=== PATIENT | male | born 1955 | race Caucasian/White ===

== ENCOUNTER 2023-11-21 06:57 | Inpatient (IN) | payer MEDICARE, SELFPAY ==
[2023-11-21] VITALS (48 sets, daily range): BP systolic 53–182; BP diastolic 41–117; PULSE 54–106; RESP 16–24; TEMP 36.1–37.2; O2SAT 87–100; BMI 26.2
--- NOTE | 2023-11-21 07:02 | NURSING ---
NO OLD EKGS
[2023-11-21] MEDS: Etomidate 20 MG/10 ML Vial IV (07:12)
[2023-11-21] MEDS: Rocuronium Bromide 50 MG/5 ML Vial 40 MG IV (07:13)
--- NOTE | 2023-11-21 07:18 | RAD_ITS ---
We are attempting to reach an attending provider to discuss findings. An addendum with communication details will be sent when the communication is complete. EXAM: XR CHEST, 1 VIEW CLINICAL INDICATION: Unresponsive TECHNIQUE: Frontal view of the chest. COMPARISON: No relevant prior studies available. FINDINGS: LUNGS AND PLEURAL SPACES: Opacification right superior hemithorax with a smooth concave curvilinear inferior margin. No pneumothorax. No effusion. HEART: Unremarkable. Cardiac silhouette not enlarged. MEDIASTINUM: Central airways and mediastinal contour are unremarkable. BONES/JOINTS: Unremarkable. No acute fracture. SOFT TISSUES: Unremarkable. TUBES, LINES AND DEVICES: Endotracheal tube tip is 3.1 cm above the ellen. NG tube is in good position in the stomach. RAD/Chest 1 View (Portable) IMPRESSION: 1. Opacification right superior hemithorax with a smooth concave curvilinear inferior margin. This is likely due to atelectasis of the right upper and middle lobes. Consider CT if clinically indicated. 2. Endotracheal tube tip is 3.1 cm above the ellen. 3. NG tube is in good position in the stomach. Electronically Signed: Ion Smith MD at 7:39 EDT ,
--- NOTE | 2023-11-21 07:19 | EKG12_ITS ---
Test Reason : POST CODE Blood Pressure : / mmHG Vent. Rate : 105 BPM Atrial Rate : 101 BPM P-R Int : 000 ms QRS Dur : 098 ms QT Int : 336 ms P-R-T Axes : 000 057 231 degrees QTc Int : [address] & T wave abnormality, consider inferior ischemia ST & T wave abnormality, consider anterolateral ischemia Abnormal ECG Confirmed by EFRAIN PALMER, MARILYN ([id number]), rewrite editor BRENNA MOLINA ([id number]) on 11/23/2023 9:48:38 AM Referred By: BURAK Confirmed By:MARILYN ZUNIGA MD
--- NOTE | 2023-11-21 07:23 | EDS_ITS ---
HPI History of Present Illness Chief Complaint: CPR Informant: EMS Limited: coma Onset/Context/Timing Onset: Today Timing: Continuous Associated Symptoms Associated Symptoms: chest pain Narrative Narrative: Patient presents with cardiopulmonary arrest. EMS was called for chest pain. Upon EMS arrival, patient was unresponsive and bystanders were performing CPR. EMS continued CPR. EMS inserted an intraosseous line. EMS placed a Fran airway. Upon arrival to the emergency department, patient had a pulse and a b lood pressure. Patient was still unresponsive. Patient was unable to provide any further history. EMS states that the patient saw his primary care physician yesterday for chest pain. [facility] Medical History Smoker Alcohol abuse Hypertension Allergy/AdvReac Type Severity Reaction Status Date / Time No Known Allergies Allergy Verified 11/21/23 07:33 Surgical History unable to obtain unable to obtain Social History Smoking Status: Current every day smoker tobacco type: cigarettes ROS ROS ED Review of Systems ROS Unobtainable: due to endotracheal tube and due to mental status EXAM Physical Exam Const Vital Signs: 11/21/23 06:57 11/21/23 06:58 11/21/23 07:05 Temperature 97 F L Temperature Source Temporal Pulse Rate 106 H 96 Respiratory Rate 18 19 H Respiratory Effort Respiratory Pattern Blood Pressure 140/90 H 140/90 H Blood Pressure Mean 106 106 Pulse Ox 99 Oxygen Delivery Method Ambu-Bag Ambu-Bag Fraction of Inspired Oxygen (FIO2) 11/21/23 07:15 11/21/23 07:15 11/21/23 07:30 Temperature 97.2 F L Temperature Source Temporal Pulse Rate 74 79 Respiratory Rate 16 16 Respiratory Effort Respiratory Pattern Blood Pressure 182/117 H 147/80 H Blood Pressure Mean 138 102 Pulse Ox 100 100 Oxygen Delivery Method Mechanical Ventilator Fraction of Inspired Oxygen (FIO2) 100 100 11/21/23 07:40 11/21/23 07:45 11/21/23 08:00 Temperature Temperature Source Pulse Rate 82 70 Respiratory Rate 20 H 20 H Respiratory Effort Mechanically Ventilated Respiratory Pattern Normal Blood Pressure 132/76 H 120/76 Blood Pressure Mean 94 90 Pulse Ox 97 97 Oxygen Delivery Method Mechanical Ventilator Mechanical Ventilator Fraction of Inspired Oxygen (FIO2) 100 11/21/23 08:30 Temperature Temperature Source Pulse Rate 75 Respiratory Rate 20 H Respiratory Effort Respiratory Pattern Blood Pressure 120/76 Blood Pressure Mean 90 Pulse Ox 97 Oxygen Delivery Method Mechanical Ventilator Fraction of Inspired Oxygen (FIO2) 100 Positive well nourished and well developed General Appearance ED: well developed HEENT normocephalic and atraumatic Neck no JVD Resp Resp Narrative: Patient had equal breath sounds with mechanical ventilation bilaterally. Cardio regular rate and regular rhythm GI non-distended Palpation: soft MDM MDM MDM Narrative Medical decision making narrative: Differential diagnosis includes cardiac dysrhythmia, cardiac ischemia, electrolyte abnormality, pneumonia, sepsis, and intracranial bleeding. EKG will be obtained to assess for cardiac dysrhythmia and cardiac ischemia. Chest x-ray will be obtained to assess for pneumonia and pneumothorax. CT scan of the brain will be obtained to assess for intracranial bleeding. CBC will be obtained to assess for leukocytosis and anemia. Comprehensive metabolic profile will be obtained to assess for hepatic function, renal function, and electrolyte abnormality. PT with INR and PTT will be obtained to assess for coagulopathy. Serum lactate will be obtained to assess for sepsis. Urinalysis will be obtained to assess for urinary tract infection. Lab Data Attestation: I reviewed the patient's lab results. Lab results narrative: CBC was reviewed. There is a leukocytosis of 15.1. The remainder is within normal limits. PT with INR and PTT were reviewed and were within normal limits. Comprehensive metabolic profile was reviewed. CO2 was low at 17. Creatinine was elevated at 1.81. Glucose was elevated at 295. AST was slightly elevated at 67. ALT was normal. Serum lactate was reviewed and was elevated at 6.6. Urinalysis was reviewed. There is no evidence of urinary tract infection or hematuria. Initial high-sensitivity troponin was reviewed and was normal at 67. Arterial blood gas was reviewed. pH was 7.18, pCO2 was 48.8, pO2 was 191, bicarb was 18.3, and oxygen saturation was 99.4% on the ventilator. Labs: Laboratory Results - last 24 hr 11/21/23 11/21/23 11/21/23 07:09 07:25 07:30 WBC 15.1 H RBC 4.33 L Hgb 14.3 Hct 44.7 MCV 103.2 H MCH 33.0 H MCHC 32.0 RDW Std Deviation 48.7 H RDW Coeff of Sina 12.6 Plt Count 290 MPV 10.0 Immature Gran % (Auto) 2.700 H Neut % (Auto) 28.9 L Lymph % (Auto) 58.1 H [place] % (Auto) 5.4 Eos % (Auto) 4.0 Baso % (Auto) 0.9 Absolute Neuts (auto) 4.4 Absolute Lymphs (auto) 8.75 H Nucleated RBC % 0.1 Reactive Lymphocytes 2+ PT 14.1 INR 1.1 APTT 32.3 Sodium 134 L Potassium 3.7 Chloride 101 Carbon Dioxide 17.0 L Anion Gap 16 H BUN 18 Creatinine 1.81 H Estim Creat Clear Calc 41.68 Est GFR (MDRD) Af Amer 48 L Est GFR (MDRD) Non-Af 40 L BUN/Creatinine Ratio 9.9 L Glucose 295 H Lactic Acid 6.6 H* Calcium 8.8 Total Bilirubin 0.30 AST 67 H ALT 59 Alkaline Phosphatase 66 Troponin I High Sens 67 Total Protein 7.3 Albumin 3.5 Globulin 3.8 Albumin/Globulin Ratio 0.9 Urine Color Yellow Urine Clarity Clear Urine pH 6.0 Ur Specific [place] 1.015 Urine Protein 100 H Urine Glucose (UA) 50 H Urine Ketones Negative Urine Occult Blood 50 H Urine Nitrite Negative Urine Bilirubin Negative Urine Urobilinogen Normal Ur Leukocyte Esterase Negative Urine RBC 0 SEEN Urine WBC 0 SEEN Ur Squamous Epith Cells 0 SEEN Urine Bacteria 0 SEEN Urine Mucus 0 SEEN ABG Data ABG results: ABG 11/21/23 07:39 Specimen Type ART Sample Site L Radial pH 7.18 L* Bicarbonate Actual 18.3 L Total CO2 20 Base Excess -10 L O2 Saturation 99 O2 % 100.0 ABG pCO2 48.8 H ABG pO2 192 H Jacob Test Positive Respiration Rate 16 O2 Delivery Device Adult Vent Vent Mode AC Tidal Volume 500.0 POC PEEP 5 Crit Call To/Read Back Yes Blood Gas Notified Whom shanae Blood Gas Notified Time 07:41:44 Radiography Chest X-Ray - ED: 1 View, Read by ED Physician, Read by Radiologist and Right Infiltrate Diagnostic Testing: Clinical Impression(s) from Imaging Studies Chest X-Ray 11/21/23 07:18 IMPRESSION: 1. Opacification right superior hemithorax with a smooth concave curvilinear inferior margin. This is likely due to atelectasis of the right upper and middle lobes. Consider CT if clinically indicated. 2. Endotracheal tube tip is 3.1 cm above the ellen. 3. NG tube is in good position in the stomach. Electronically Signed: Ion Smith MD at 7:39 EDT , ADDENDUM: 11/21/23 0757 IMPRESSION: 1. Opacification right superior hemithorax with a smooth concave curvilinear inferior margin. This is likely due to atelectasis of the right upper and middle lobes. Consider CT if clinically indicated. 2. Endotracheal tube tip is 3.1 cm above the ellen. 3. NG tube is in good position in the stomach. N.B. : Arslan French DO, confirmed on 11/21/2023 07:50:45 (ET) that the referring physician received the results and does not require a verbal communication. Electronically Signed: Ion Smith MD at 7:39 EDT , Brain CT 11/21/23 08:19 IMPRESSION: 1. No acute intracranial abnormality. 2. Paranasal sinusitis Electronically Signed: Edmund Sellers MD at 9:52 EDT , Chest CTA 11/21/23 08:21 IMPRESSION: 1. Right upper lobe pneumonia with volume loss change. Subsegmental atelectasis of the left upper lobe and both lower lobes. 2. No evidence of acute pulmonary embolism. Electronically Signed: Edmund Sellers MD at 10:11 EDT , EKG Initial EKG: Attestation: I personally reviewed and interpreted this EKG as follows: Interpretation: Sinus Rhythm (With occasional ectopics with a rate of 105) and Non-Specific ST Changes Comments: EKG was obtained. On my independent interpretation, it shows a sinus tachycardia with a rate of 105 with frequent ectopics. WI interval was within normal limits. QRS interval was within normal limits. QTc interval was within normal limits. [place] was normal. There are nonspecific ST-T wave changes diffusely. There is no criteria for acute STEMI. Prior EKG tracings: not available for review Prior: No Prior Management Discussion w/another healthcare provider: Hospitalist and Machine Strap Buckler Treatment and Re-Evaluation Narrative: Patient had a return of spontaneous circulation. Patient had a good blood pressure. The Fran airway was removed and endotracheal intubation was attempted. Patient was biting on the laryngoscope. Patient was given etomidate and rocuronium. After sedation and neuromuscular paralysis, patient was intubated with an 8 ET tube to 28 cm at the lip. There is good color change on the capnography. Breath sounds were equal bilaterally. Patient was placed on a mechanical ventilator. Because of the chest x-ray findings, lactic acidosis, and leukocytosis, patient was given Rocephin and Zithromax. Blood cultures were obtained. Case was discussed with cardiology, Dr. Rand. He did not feel that the patient needed emergent cardiac catheterization. He had no further recommendations. While here in the emergency department, patient did have a short run of ventricular tachycardia. Patient converted spontaneously. Case was discussed with the hospitalist. He will admit the patient to ICU. Family understood and was agreeable with the plan. All questions were answered. Procedures Intubations Intubation Method: orotracheal Intubation Verification: Positive color change and Bilateral breath sounds confirmed Intubation Complications: no complications Critical Care Time Critical Care Time: Yes Critical care time (excluding procedures): 30-74 minutes (42 minutes), Including time spent:, Discussing w/Patient &/or Family/Entry Level Machine Operator, Discussing w/Consultants, Arranging Admission or Transfer and Performing Direct Patient Care at Bedside Discharge Plan Triage Chief Complaint: CPR ED Provider: Arslan French Dx/Rx/DC Orders Clinical Impression: Cardiopulmonary arrest with successful resuscitation, Pneumonia, Acute lactic acidosis Primary Care Provider: Care Physician,No Primary Referrals: NOT,DEFINED [Non-Staff] - Print Language: Cymraes Disposition Disposition: [facility]
[2023-11-21 07:30] LABS: Absolute Lymphocyte Count 8.75 X10^3/uL (0.83-4.51); Absolute Neutrophil Count 4.4 X10^3/uL (2.0-7.7); Basophil# 0.13 X10^3/uL; Basophil% 0.9 % (0-1); Hematocrit 44.7 % (40-54); Hemoglobin 14.3 g/dL (13.0-16.5); Lymphocyte # 8.75 X10^3/ul (0.83-4.51); Lymphocyte % 58.1 % (19-41); Mean Corpuscular Volume 103.2 fL (80-94); Monocyte# 0.81 X10^3/uL; Monocyte% 5.4 % (0-10); NRBC Flagged by Analyzer 0.1 % (0-5); Neutrophil # 4.37 X10^3/uL (2.7-7.7); Neutrophil % 28.9 % (47-70); POSITIVE DIFFERENTIAL YES; POSITIVE MORPHOLOGY YES; Platelet Count 290 K/mm3 (150-450); RBC Distribution Width CV 12.6 % (11.6-14.6); RBC Distribution Width SD 48.7 fl (35.1-43.9); Red Blood Count 4.33 M/mm3 (4.6-6.2); White Blood Count 15.1 K/mm3 (4.4-11.0)
[2023-11-21 07:31] LABS: Differential Indicated SCAN CRITERIA MET
[2023-11-21 07:34] LABS: Bacteria 0 SEEN /hpf (None Seen); Mucous, Urine 0 SEEN /hpf (<or=2+); Red Blood Cells-Urine 0 SEEN /hpf (0-5); Squamous Epithelial Cells - UA 0 SEEN /hpf (0-5); White Blood Cells 0 SEEN /hpf (0-5)
[2023-11-21] MEDS: 0.9% Normal Saline (1000mL) 1,000 ML 1000 ML IV (07:34)
[2023-11-21 07:44] LABS: Color, Urine Yellow (Yellow); Glucose, Dipstick 50 mg/dl (Normal); Ketone-Dipstick Negative (Negative); Leukocyte Esterase-Dipstick Negative /ul (Negative); Nitrite-Dipstick Negative (Negative); Occult Blood-Urine 50 /ul (Negative); Protein-Dipstick 100 mg/dl (Negative); Specific Gravity, Urine 1.015 (1.002-1.030); Urine Bilirubin Dipstick Negative (Negative); Urine Clarity Clear (Clear); Urine Urobilinogen Normal (Normal)
[2023-11-21 07:45] LABS: Allen Test Positive; Base Excess -10 mmol/L (-2 to +2); Bicarbonate 18.3 mmol/L (22-26); Blood Gas Specimen Type ART; Mode AC; O2 Delivery Device Adult Vent; PEEP 5; PO2 192 mmHG (75-100); RR 16; SITE L Radial; SO2 99 % (95-99); Total Carbon Dioxide 20 mmol/L; pCO2 48.8 mmHg (35-45); pH 7.18 (7.35-7.45)
[2023-11-21 07:48] LABS: Reactive Lymphocyte 2+
[2023-11-21 07:55] LABS: ALB/GLOB Ratio 0.9 RATIO (0.9-2.4); AST(SGOT) 67 U/L (15-37); Alanine Aminotransfer ALT/SGPT 59 U/L (16-61); Albumin, Serum 3.5 g/dL (3.2-5.0); Alkaline Phosphatase 66 U/L (45-117); Anion Gap 16 (5-15); BUN 18 mg/dL (7-18); BUN/Creat Ratio 9.9 RATIO (10-20); Calcium,Total 8.8 mg/dL (8.5-10.1); Chloride 101 mmol/L (98-107); Creatinine, Serum 1.81 mg/dL (0.70-1.30); EST Glomerular Filtration Rate 40 mL/min (>60); Est Glom Filt Rate - Afr Amer 48 mL/min (>60); Estimated Creatinine Clearance 41.68 ml/min; Globulin 3.8 g/dL (2.2-4.2); Glucose 295 mg/dL (74-106); Potassium 3.7 mmol/L (3.5-5.1); Protein, Total 7.3 g/dL (6.4-8.2); Sodium Level 134 mmol/L (136-145); Troponin-I HS (w/2H Reflex) 67 pg/mL (3.0-78.0)
[2023-11-21] MEDS: fentaNYL 100 MCG/2 ML Ampul 50 MCG IV (08:07)
[2023-11-21 08:16] LABS: International Normalized Ratio 1.1; Partial Thromboplast Time 32.3 Seconds (24.1-36.2); Prothrombin Time (Protime)PT. 14.1 SECONDS (11.7-14.9)
[2023-11-21] MEDS: Propofol 10MG/Ml 1,000 MG/100 ML Bottle 5.3 MG CONT INF (08:17)
--- NOTE | 2023-11-21 08:19 | CT_ITS ---
EXAM: CT HEAD WITHOUT INTRAVENOUS CONTRAST CLINICAL INDICATION: Unresponsive TECHNIQUE: Multiple axial images were obtained of the head without intravenous contrast. This CT exam was performed using one or more of the following dose reduction techniques: automated exposure control, adjustment of the mA and/or kV according to patient size, and/or use of iterative reconstruction technique. COMPARISON: No relevant prior studies available. FINDINGS: BRAIN AND EXTRA-AXIAL SPACES: Normal. Normal brain attenuation. No intra- or extra-axial hemorrhage. No acute infarct. No intracranial mass or mass effect. There is preservation of the [place]/white matter interface. Posterior fossa structures are unremarkable. Ventricles are appropriate for age. No hydrocephalus. Basal cisterns are patent. BONES/JOINTS: Normal calvarium. SINUSES: Mucosal thickening of the paranasal sinuses. MASTOID AIR CELLS: Normal. Clear. CT/Brain/Head without Contrast IMPRESSION: 1. No acute intracranial abnormality. 2. Paranasal sinusitis Electronically Signed: Edmund Sellers MD at 9:52 EDT ,
[2023-11-21] MEDS: fentaNYL drip 100 ML 2.5 MCG CONT INF (08:21)
--- NOTE | 2023-11-21 08:21 | CT_ITS ---
CT/CTA Chest W/WO Contrast IMPRESSION: 1. Right upper lobe pneumonia with volume loss change. Subsegmental atelectasis of the left upper lobe and both lower lobes. 2. No evidence of acute pulmonary embolism. Electronically Signed: Edmund Sellers MD at 10:11 EDT ,
[2023-11-21 08:33] LABS: Lactic Acid 6.6 mmol/L (0.4-1.9)
[2023-11-21 09:24] LABS: Reflex Troponin-HS? (from REC) Y
--- NOTE | 2023-11-21 10:00 | NURSING ---
DR MICHELLE SUMNER
[2023-11-21 10:23] LABS: Troponin-I HS 1709 pg/mL (3.0-78.0)
--- NOTE | 2023-11-21 10:24 | ECHOCS_ITS ---
Reason For Study: ARRYTHMIA Procedure This was a 2D Doppler, Color Flow transthoracic echocardiogram. Exam performed portable in ED. Left Ventricle Normal LV size. Mild concentric left ventricular hypertrophy. Severe hypokinesis to akinesis of anterior, apical and anteroseptal segments. Estimated LVEF 25-30%. Stage 1 diastolic dysfunction. Right Ventricle Normal right ventricle. Atria The left and right atria are normal. Mitral Valve The mitral valve is structurally normal. No prolapse or stenosis seen. Tricuspid Valve Normal tricuspid valve. Aortic Valve Trisinus/trileaflet aortic valve. Pulmonic Valve The pulmonic valve is not well visualized. Great Vessels Mildly dilated aortic root. Pericardium/Pleural Trivial pericardial effusion. MMode/2D Measurements & Calculations LVIDd: 4.4 cm IVSd: 1.4 cm Ao root diam: 3.6 cm LVIDs: 3.2 cm LVPWd: 1.3 cm FS: 26.7 % LAV(MOD-bp): 17.5 ml LVAd ap4: 23.5 cm2 SV(MOD-sp4): 26.6 ml LAV(MOD-bp) Indexed: 8.3 ml/m2 LVLd ap4: 7.7 cm LAV(MOD-sp2): 19.7 ml EDV(MOD-sp4): 60.2 ml LAV(MOD-sp4): 15.2 ml EDV(sp4-el): 60.9 ml LVAs ap4: 16.4 cm2 LVLs ap4: 6.8 cm ESV(MOD-sp4): 33.5 ml ESV(sp4-el): 33.8 ml EF(MOD-sp4): 44.3 % EF(sp4-el): 44.6 % SV(sp4-el): 27.2 ml LA A4 area: 9.5 cm2 LA dimension(2D): 2.8 cm RA A4 area: 9.1 cm2 TAPSE: 1.5 cm Time Measurements MV dec time: 0.28 sec Doppler Measurements & Calculations MV E max curtis: 33.2 cm/sec Lat Peak E' Curtis: 3.7 cm/sec Med Peak E' Curtis: 4.1 cm/sec MV A max curtis: 52.0 cm/sec E/E' lat: 9.1 E/E' med: 8.0 MV E/A: 0.64 MV V2 max: 67.1 cm/sec Ao V2 max: 65.3 cm/sec MV max P.8 mmHg MV dec slope: 120.3 cm/sec2 Ao max P.7 mmHg MV V2 mean: 35.5 cm/sec MV mean P.58 mmHg MV V2 VTI: 21.5 cm LV V1 max: 60.8 cm/sec LV V1 max P.5 mmHg ECHO/Echo Complete W/ Contrast Interpretation Summary Mild concentric left ventricular hypertrophy. Severe hypokinesis to akinesis of anterior, apical and anteroseptal segments. E stimated LVEF 25-30%. Stage 1 diastolic dysfunction. Mildly dilated aortic root. Ordering Physician: Larry Zazueta Referring Physician: NO PCP Performed By: Wendi Ferrera RCS
[2023-11-21 10:25] LABS: CPK Total, Creatine Kinase 161 U/L (39-308); Triglycerides 235 mg/dL
--- NOTE | 2023-11-21 10:31 | PCM.HP.STD ---
HPI - General General Date of Admission: 11/21/23 Date of Service: 11/21/23 Chief Complaint: Cardiac arrest HPI Narrative HAY CONTRERAS, is a 68 M who presents admitted with cardiac arrest. Patient could not provide any history since patient was intubated at the time of my assessment but did obtain history from patient's family. Patient is apparently visiting [place] for college reunion. He has apparently been complaining of exertional chest pain weeks prior to his admission. On the morning of his event he did complain of some chest discomfort he later slumped over 911 was called patient brought to the emergency department. Successfully resuscitated using ACLS protocol with return of spontaneous circulation. Subsequently intubated.CT of the head obtained on admission demonstrated paranasal sinusitis. CTA did show right upper lobe pneumonia with volume loss change. Subsegmental atelectasis of the left upper lobe and both lower lobes. No evidence of acute pulmonary embolism.Per documentation from the ED patient did have some runs of nonsustained VT in the emergency department. EKG however was not consistent with non-STEMI. Initial cardiac enzymes was negative subsequent cardiac enzymes came back at 1709 consistent with acute SC. Patient was started on heparin drip Case discussed with Dr. Blanca and the upholstered goods crafter on-call admitted to the intensive care unit for subsequent management [facility] Medical History Smoker Alcohol abuse Hypertension Allergy/AdvReac Type Severity Reaction Status Date / Time No Known Allergies Allergy Verified 11/21/23 07:33 Surgical History unable to obtain Social History Smoking Status: Current every day smoker tobacco type: cigarettes ROS ROS Narrative Unable to obtain with patient on the vent Vital Signs Vital Signs Vital Signs: 11/21/23 06:57 11/21/23 06:58 11/21/23 07:05 Temperature 97 F L Temperature Source Temporal Pulse Rate 106 H 96 Respiratory Rate 18 19 H Respiratory Effort Respiratory Pattern Blood Pressure 140/90 H 140/90 H Blood Pressure Mean 106 106 Pulse Ox 99 Oxygen Delivery Method Ambu-Bag Ambu-Bag Fraction of Inspired Oxygen (FIO2) 11/21/23 07:15 11/21/23 07:15 11/21/23 07:30 Temperature 97.2 F L Temperature Source Temporal Pulse Rate 74 79 Respiratory Rate 16 16 Respiratory Effort Respiratory Pattern Blood Pressure 182/117 H 147/80 H Blood Pressure Mean 138 102 Pulse Ox 100 100 Oxygen Delivery Method Mechanical Ventilator Fraction of Inspired Oxygen (FIO2) 100 100 11/21/23 07:40 11/21/23 07:45 11/21/23 08:00 Temperature Temperature Source Pulse Rate 82 70 Respiratory Rate 20 H 20 H Respiratory Effort Mechanically Ventilated Respiratory Pattern Normal Blood Pressure 132/76 H 120/76 Blood Pressure Mean 94 90 Pulse Ox 97 97 Oxygen Delivery Method Mechanical Ventilator Mechanical Ventilator Fraction of Inspired Oxygen (FIO2) 100 11/21/23 08:30 11/21/23 09:00 11/21/23 09:30 Temperature 98.9 F Temperature Source Temporal Pulse Rate 75 68 68 Respiratory Rate 20 H 20 H 20 H Respiratory Effort Respiratory Pattern Blood Pressure 120/76 146/82 H 143/89 H Blood Pressure Mean 90 103 107 Pulse Ox 97 Oxygen Delivery Method Mechanical Ventilator Mechanical Ventilator Mechanical Ventilator Fraction of Inspired Oxygen (FIO2) 100 100 11/21/23 10:00 Temperature Temperature Source Pulse Rate 65 Respiratory Rate 20 H Respiratory Effort Respiratory Pattern Blood Pressure 125/82 H Blood Pressure Mean 96 Pulse Ox 100 Oxygen Delivery Method Mechanical Ventilator Fraction of Inspired Oxygen (FIO2) 85 Weight Weight: 87.9 kg Body Mass Index (BMI) 26.2 Physical Exam Narrative GENERAL: Sedated on the vent HEENT: ET tube in place EYES; Anicteric, Normal Conjunctiva NECK; supple, normal thyroid, RESPIRATORY: Diminished to auscultation CARDIOVASCULAR: Regular S1 S2, GI: soft, normoactive bowel sounds, : No Renal angle tenderness; EXTREMITIES: No edema, no clubbing, MUSCULOSKELETAL: no muscle wasting NEURO: Unable to assess SKIN: No Rash PSYCH; sedated on the vent Results Lab / Micro Data 11/21/23 07:09 11/21/23 07:09 Labs: Laboratory Results - last 24 hr 11/21/23 07:09: WBC 15.1 H, RBC 4.33 L, Hgb 14.3, Hct 44.7, MCV 103.2 H, MCH 33.0 H, MCHC 32.0, RDW Std Deviation 48.7 H, RDW Coeff of Sina 12.6, Plt Count 290, MPV 10.0, Immature Gran % (Auto) 2.700 H, Neut % (Auto) 28.9 L, Lymph % (Auto) 58.1 H, [place] % (Auto) 5.4, Eos % (Auto) 4.0, Baso % (Auto) 0.9, Absolute Neuts (auto) 4.4, Absolute Lymphs (auto) 8.75 H, Nucleated RBC % 0.1, Reactive Lymphocytes 2+, PT 14.1, INR 1.1, APTT 32.3, Sodium 134 L, Potassium 3.7, Chloride 101, Carbon Dioxide 17.0 L, Anion Gap 16 H, BUN 18, Creatinine 1.81 H, Estim Creat Clear Calc 41.68, Est GFR (MDRD) Af Amer 48 L, Est GFR (MDRD) Non-Af 40 L, BUN/Creatinine Ratio 9.9 L, Glucose 295 H, Calcium 8.8, Total Bilirubin 0.30, AST 67 H, ALT 59, Alkaline Phosphatase 66, Total Creatine Kinase 161, Troponin I High Sens 67, Total Protein 7.3, Albumin 3.5, Globulin 3.8, Albumin/Globulin Ratio 0.9, Triglycerides 235 H 11/21/23 07:25: Lactic Acid 6.6 H* 11/21/23 07:30: Urine Color Yellow, Urine Clarity Clear, Urine pH 6.0, Ur Specific [place] 1.015, Urine Protein 100 H, Urine Glucose (UA) 50 H, Urine Ketones Negative, Urine Occult Blood 50 H, Urine Nitrite Negative, Urine Bilirubin Negative, Urine Urobilinogen Normal, Ur Leukocyte Esterase Negative, Urine RBC 0 SEEN, Urine WBC 0 SEEN, Ur Squamous Epith Cells 0 SEEN, Urine Bacteria 0 SEEN, Urine Mucus 0 SEEN 11/21/23 09:49: Troponin I High Sens 1709 H* ABG Data ABG results: ABG 11/21/23 07:39 Specimen Type ART Sample Site L Radial pH 7.18 L* Bicarbonate Actual 18.3 L Total CO2 20 Base Excess -10 L O2 Saturation 99 O2 % 100.0 ABG pCO2 48.8 H ABG pO2 192 H Jacob Test Positive Respiration Rate 16 O2 Delivery Device Adult Vent Vent Mode AC Tidal Volume 500.0 POC PEEP 5 Crit Call To/Read Back Yes Blood Gas Notified Whom shanae Blood Gas Notified Time 07:41:44 Imaging Radiology Impression Chest X-Ray 11/21/23 07:18 IMPRESSION: 1. Opacification right superior hemithorax with a smooth concave curvilinear inferior margin. This is likely due to atelectasis of the right upper and middle lobes. Consider CT if clinically indicated. 2. Endotracheal tube tip is 3.1 cm above the ellen. 3. NG tube is in good position in the stomach. Electronically Signed: Ion Smith MD at 7:39 EDT , ADDENDUM: 11/21/23 0757 IMPRESSION: 1. Opacification right superior hemithorax with a smooth concave curvilinear inferior margin. This is likely due to atelectasis of the right upper and middle lobes. Consider CT if clinically indicated. 2. Endotracheal tube tip is 3.1 cm above the ellen. 3. NG tube is in good position in the stomach. N.B. : Arslan French DO, confirmed on 11/21/2023 07:50:45 (ET) that the referring physician received the results and does not require a verbal communication. Electronically Signed: Ion Smith MD at 7:39 EDT , Brain CT 11/21/23 08:19 IMPRESSION: 1. No acute intracranial abnormality. 2. Paranasal sinusitis Electronically Signed: Edmund Sellers MD at 9:52 EDT , Chest CTA 11/21/23 08:21 IMPRESSION: 1. Right upper lobe pneumonia with volume loss change. Subsegmental atelectasis of the left upper lobe and both lower lobes. 2. No evidence of acute pulmonary embolism. Electronically Signed: Edmund Sellers MD at 10:11 EDT , Assessment & Plan Assessment/Plan (1) Cardiopulmonary arrest with successful resuscitation: PLAN: Plan Patient is a 68-year-old gentleman presented with cardiac arrest with elevated troponin 1. Acute cardiopulmonary arrest ? Possibly precipitated by patient acute myocardial infarction. Patient was successfully resuscitated using ACLS with return of spontaneous circulation subsequently intubated and admitted to the intensive care unit 2. Acute non-STEMI ? Patient had apparently been experiencing recurrent chest pain weeks prior to his admission. Initial EKG and set of cardiac enzymes came back unremarkable however subsequent troponin came back at 06/21/2008. Patient started on aspirin. NG tube also started on heparin drip ordered a 2D echo with consultation placed to cardiology Case discussed with Dr. Rand 3. Nonsustained VT ? Possibly related to above echo ordered for subsequent eval 4. Acute hypoxic respiratory failure ? Following cardiopulmonary arrest ? Initial events settings rating patient admitted to the intensive care unit. Consult placed to natural science manager for vent management 5. Pneumonia ? Do suspect aspiration pneumonia following patient cardiopulmonary arrest. Patient was started on broad-spectrum antibiotic therapy cultures sent with plan to de-escalate 6. Lactic acidosis ? Related to hypoperfusion from patient's cardiopulmonary arrest as well as possible sepsis from patient's pneumonia 7. Metabolic acidosis ? Secondary to above 8. Sepsis ? Secondary to pneumonia patient had leukocytosis and source of infection as well as evidence of endorgan dysfunction with lactic acidosis and renal failure (baseline creatinine unknown). Patient was resuscitated with IV fluid per protocol after cultures have been sent 9. Renal failure ? Acute versus chronic baseline creatinine unknown. Patient is on IV fluid also ordered renal duplex ultrasound monitoring with daily BMPs ordered 10. Hyponatremia ? Patient started on IV fluids with daily monitoring BMPs ordered 11. DVT prophylaxis ? Patient is on heparin Total critical time spent in the patient's overall evaluation,decision-making process, review of diagnostic data, adjustment of management, discussion with other providers, nursing nursing and ancillary staff involved in patient's care documentation, 85 minutes CODE STATUS full code Charges/Coding Multi Select Codes Hospitalists' Procedures Procedures: 09816 Critical Care 1st Hr and 55735 Critical Care Addl 30 Min
--- NOTE | 2023-11-21 10:37 | NURSING ---
ICU KITTOE CPR, PNEUMONIA, LACTIC ACIDOSIS
[2023-11-21] MEDS: Ceftriaxone 2 GM in 0.9% Normal Saline (50mL MB+) 50 ML IV (10:39)
[2023-11-21] MEDS: Azithromycin 500 MG in Dextrose 5%-Water (250mL Bag) 250 ML 250 MG IV (11:05)
[2023-11-21 11:27] LABS: Reflex Lactate? Y
[2023-11-21 11:28] LABS: Base Excess -5 mmol/L (-2 to +2); Bicarbonate 19.9 mmol/L (22-26); Blood Gas Specimen Type ART; Mode AC; O2 Delivery Device Adult Vent; PEEP 5; PO2 259 mmHG (75-100); RR 20; SITE R Radial; SO2 100 % (95-99); Total Carbon Dioxide 21 mmol/L; pCO2 32.9 mmHg (35-45); pH 7.39 (7.35-7.45)
--- NOTE | 2023-11-21 11:29 | PCM.CONS.C ---
Assessment & Plan Assessment/Plan (1) Cardiopulmonary arrest with successful resuscitation: PLAN: Patient presently hemodynamically stable. With his history of intermittent chest discomfort over the past few days and again this morning, likely an acute coronary event. Will need heart catheterization with coronary angiography. Will await neurological status to recover. Start aspirin. Start on heparin. Clopidogrel. Low-dose beta-blockers. (2) NSTEMI (non-ST elevated myocardial infarction): PLAN: See #1 above. Check echocardiogram. (3) Pneumonia: PLAN: Possibly aspiration pneumonia. Continue to manage as per internal medicine. (4) Renal insufficiency: PLAN: Monitor. HPI Consult Data Date of Consult: 11/21/23 HPI Narrative Reason for Consultation: Cardiac arrest HPI Narrative: 68-year-old gentleman with past medical history significant for hypertension and nicotine dependence. Per family, he has been complaining of intermittent chest discomfort over the last couple of weeks. He is from out of town and visiting [place] for a reunion at the [facility]. This morning, he complained of chest discomfort again and then slumped to the floor per his . According to the family, he initially had labored breathing but subsequently stopped breathing. The [employer] security started CPR. EMS was called. Apparently they found the patient in ventricular fibrillation. Successfully defibrillated. Upon arrival in the emergency room, patient was noted to have a pulse and blood pressure. Presently he is intubated, on the ventilator. [facility] Medical History Smoker Alcohol abuse Hypertension Allergy/AdvReac Type Severity Reaction Status Date / Time No Known Allergies Allergy Verified 11/21/23 07:33 Surgical History unable to obtain Social History Smoking Status: Current every day smoker tobacco type: cigarettes Physical Exam Narrative Intubated, on the ventilator. Heart sounds 1 and 2 are noted. Chest auscultation shows decreased air entry bilaterally. No ankle edema noted. Risk Stratification Risk Stratification Applicable: No Objective Data Vital Signs: Vital Signs Temp Pulse Resp BP Pulse Ox O2 Del Method FiO2 98.9 F 62 20 H 112/71 99 Mechanical Ventilator 85 11/21/23 09:00 11/21/23 10:40 11/21/23 10:40 11/21/23 10:40 11/21/23 10:40 11/21/23 10:40 11/21/23 10:00 Oxygen Delivery Method Mechanical Ventilator Weight: 193 lb 12.581 oz Body Mass Index (BMI) 26.2 Intake & Output: Intake and Output for Last 24 Hours 11/19/23 11/20/23 11/21/23 23:59 23:59 23:59 Intake Total 1021.35 / 1021.35 Balance 1021.35 / 1021.35 Lab / Micro Data 11/21/23 07:09 11/21/23 07:09 Labs: Laboratory Results - last 24 hr 11/21/23 07:09: WBC 15.1 H, RBC 4.33 L, Hgb 14.3, Hct 44.7, MCV 103.2 H, MCH 33.0 H, MCHC 32.0, RDW Std Deviation 48.7 H, RDW Coeff of Sina 12.6, Plt Count 290, MPV 10.0, Immature Gran % (Auto) 2.700 H, Neut % (Auto) 28.9 L, Lymph % (Auto) 58.1 H, [place] % (Auto) 5.4, Eos % (Auto) 4.0, Baso % (Auto) 0.9, Absolute Neuts (auto) 4.4, Absolute Lymphs (auto) 8.75 H, Nucleated RBC % 0.1, Reactive Lymphocytes 2+, PT 14.1, INR 1.1, APTT 32.3, Sodium 134 L, Potassium 3.7, Chloride 101, Carbon Dioxide 17.0 L, Anion Gap 16 H, BUN 18, Creatinine 1.81 H, Estim Creat Clear Calc 41.68, Est GFR (MDRD) Af Amer 48 L, Est GFR (MDRD) Non-Af 40 L, BUN/Creatinine Ratio 9.9 L, Glucose 295 H, Calcium 8.8, Total Bilirubin 0.30, AST 67 H, ALT 59, Alkaline Phosphatase 66, Total Creatine Kinase 161, Troponin I High Sens 67, Total Protein 7.3, Albumin 3.5, Globulin 3.8, Albumin/Globulin Ratio 0.9, Triglycerides 235 H 11/21/23 07:25: Lactic Acid 6.6 H* 11/21/23 07:30: Urine Color Yellow, Urine Clarity Clear, Urine pH 6.0, Ur Specific [place] 1.015, Urine Protein 100 H, Urine Glucose (UA) 50 H, Urine Ketones Negative, Urine Occult Blood 50 H, Urine Nitrite Negative, Urine Bilirubin Negative, Urine Urobilinogen Normal, Ur Leukocyte Esterase Negative, Urine RBC 0 SEEN, Urine WBC 0 SEEN, Ur Squamous Epith Cells 0 SEEN, Urine Bacteria 0 SEEN, Urine Mucus 0 SEEN 11/21/23 09:49: Troponin I High Sens 1709 H* Micro: Microbiology 11/21/23 07:30 Urine Catheter - Jones Legionella Antigen - Final 11/21/23 07:30 Urine Catheter - Jones Streptococcus pneumoniae Antigen (M - Final ABG Data ABG results: ABG 11/21/23 11/21/23 07:39 11:25 Specimen Type ART ART Sample Site L Radial R Radial pH 7.18 L* 7.39 Bicarbonate Actual 18.3 L 19.9 L Total CO2 20 21 Base Excess -10 L -5 L O2 Saturation 99 100 H O2 % 100.0 85.0 ABG pCO2 48.8 H 32.9 L ABG pO2 192 H 259 H Jacob Test Positive N/A Respiration Rate 16 20 O2 Delivery Device Adult Vent Adult Vent Vent Mode AC AC Tidal Volume 500.0 500.0 POC PEEP 5 5 Crit Call To/Read Back Yes Blood Gas Notified [facility] Blood Gas Notified Time 07:41:44 Cardiology Labs/Tests 11/21/23 07:09: WBC 15.1 H, RBC 4.33 L, Hgb 14.3, Hct 44.7, MCV 103.2 H, MCH 33.0 H, MCHC 32.0, Plt Count 290, MPV 10.0, Immature Gran % (Auto) 2.700 H, Neut % (Auto) 28.9 L, Lymph % (Auto) 58.1 H, Bath % (Auto) 5.4, Eos % (Auto) 4.0, Baso % (Auto) 0.9, Absolute Neuts (auto) 4.4, Nucleated RBC % 0.1, PT 14.1, INR 1.1, APTT 32.3, Sodium 134 L, Potassium 3.7, Chloride 101, Carbon Dioxide 17.0 L, Anion Gap 16 H, BUN 18, Creatinine 1.81 H, Est GFR (MDRD) Af Amer 48 L, Est GFR (MDRD) Non-Af 40 L, BUN/Creatinine Ratio 9.9 L, Glucose 295 H, Calcium 8.8, Total Bilirubin 0.30, Triglycerides 235 H 11/21/23 07:25: Lactic Acid 6.6 H* 11/21/23 07:30: Urine Color Yellow, Urine Clarity Clear, Urine pH 6.0, Ur Specific [place] 1.015, Urine Protein 100 H, Urine Glucose (UA) 50 H, Urine Ketones Negative, Urine Occult Blood 50 H, Urine Nitrite Negative, Urine Bilirubin Negative, Urine Urobilinogen Normal, Ur Leukocyte Esterase Negative, Urine RBC 0 SEEN, Urine WBC 0 SEEN 11/21/23 07:39: pH 7.18 L*, Bicarbonate Actual 18.3 L, Base Excess -10 L, O2 Saturation 99, ABG pCO2 48.8 H, ABG pO2 192 H, Jacob Test Positive 11/21/23 11:25: pH 7.39, Bicarbonate Actual 19.9 L, Base Excess -5 L, O2 Saturation 100 H, ABG pCO2 32.9 L, ABG pO2 259 H, Jacob Test N/A Rhythm: EKG: First ECG showed ventricular tachycardia. Subsequent ECG shows atrial fibrillation with nonspecific ST changes. Presently, telemetry shows sinus rhythm. ECHO: Stress Test: Cardiac Cath: PCI: CT Surgery: Holter monitor: EPS: PPM: CXR: Chest CT Scan: Radiography Diagnostic Testing: Radiology Impression Chest X-Ray 11/21/23 07:18 IMPRESSION: 1. Opacification right superior hemithorax with a smooth concave curvilinear inferior margin. This is likely due to atelectasis of the right upper and middle lobes. Consider CT if clinically indicated. 2. Endotracheal tube tip is 3.1 cm above the ellen. 3. NG tube is in good position in the stomach. Electronically Signed: Ion Smith MD at 7:39 EDT , ADDENDUM: 11/21/23 4204 IMPRESSION: 1. Opacification right superior hemithorax with a smooth concave curvilinear inferior margin. This is likely due to atelectasis of the right upper and middle lobes. Consider CT if clinically indicated. 2. Endotracheal tube tip is 3.1 cm above the ellen. 3. NG tube is in good position in the stomach. N.B. : Arslan French DO, confirmed on 11/21/2023 07:50:45 (ET) that the referring physician received the results and does not require a verbal communication. Electronically Signed: Ion Smith MD at 7:39 EDT , Brain CT 11/21/23 08:19 IMPRESSION: 1. No acute intracranial abnormality. 2. Paranasal sinusitis Electronically Signed: Edmund Sellers MD at 9:52 EDT , Chest CTA 11/21/23 08:21 IMPRESSION: 1. Right upper lobe pneumonia with volume loss change. Subsegmental atelectasis of the left upper lobe and both lower lobes. 2. No evidence of acute pulmonary embolism. Electronically Signed: Edmund Sellers MD at 10:11 EDT ,
[2023-11-21 11:35] LABS: International Normalized Ratio 1.1; Partial Thromboplast Time 27.8 Seconds (24.1-36.2); Prothrombin Time (Protime)PT. 13.8 SECONDS (11.7-14.9)
[2023-11-21] MEDS: 0.9% Normal Saline (1000mL) 1,000 ML 999 ML IV ×3 (12:00→14:04)
--- NOTE | 2023-11-21 12:24 | CON.PCM.CC_ITS ---
HPI Consult Data Date of Consult: 11/21/23 HPI Narrative Reason for Consultation: Cardiac arrest HPI Narrative: HAY CONTRERAS, is a 68 M who presents following a collapse at home, he had been having stuttering chest pains for weeks, was trying to get a cardiology appointment per report and called 911 today with the last episode of chest pain. It is not clear if his arrest was witnessed or not but he was resuscitated relatively rapidly with 2 shocks and epinephrine prior to ROSC and presented to ED with ECG not showing acute injury pattern but troponin leak was substantial so NSTEMI is suspected. He was noted to be difficult to sedate post intubation, thrashing around all limbs and eyes were opening prior to resedating. [facility] Medical History Smoker Alcohol abuse Hypertension Allergy/AdvReac Type Severity Reaction Status Date / Time No Known Allergies Allergy Verified 11/21/23 07:33 Surgical History unable to obtain Social History Smoking Status: Current every day smoker tobacco type: cigarettes Objective Data Objective Data Vital Signs: Vital Signs Last response 3 Temperature 37.0 C 11/21/23 11:30 Temperature Source Temporal 11/21/23 09:00 Pulse Rate 60 11/21/23 11:30 Respiratory Rate 20 H 11/21/23 11:30 Respiratory Effort Mechanically Ventilated 11/21/23 07:40 Respiratory Pattern Normal 11/21/23 07:40 Blood Pressure 97/65 11/21/23 11:30 Blood Pressure Mean 75 11/21/23 11:30 Pulse Ox 100 11/21/23 11:30 Oxygen Delivery Method Mechanical Ventilator 11/21/23 11:00 Fraction of Inspired Oxygen (FIO2) 85 11/21/23 10:00 I&O: I&O Last 24 Hours 3 11/20/23 11/21/23 11/21/23 23:59 11:59 23:59 Intake Total 1071.35 / 1370.39 299.04 / 1370.39 Balance 1071.35 / 1370.39 299.04 / 1370.39 I&O: Total Stay 3 11/21/23 06:57 thru 11/21/23 12:22 Intake Total 1370.39 Balance 1370.39 Current Meds Ordered / Administered: Current meds ordered / Administered 3 Generic Name Dose Route Start Last Admin Trade Name Freq PRN Reason Stop Dose Admin Acetaminophen 650 mg 11/21/23 11:55 Acetaminophen 325 Mg Tablet PO Q6H PRN PRN Pain 1-10 Or Fever>100.7 Albuterol Sulfate 2.5 mg 11/21/23 11:55 Albuterol 2.5 Mg/3 Ml Vial.Neb. INHALATION Q2H PRN PRN DYSPNEA/WHEEZING/SOB Aspirin 324 mg 11/21/23 11:55 Aspirin 81 Mg Tab.Chew NG 11/21/23 11:56 X1 ONE Aspirin 81 mg 11/22/23 08:00 Aspirin 81 Mg Tab.Chew PO BREAKFAST CELINE Chlorhexidine Gluconate 15 ml 11/21/23 22:00 Chlorhexidine 15 Ml PO BID CELINE Clopidogrel Bisulfate 75 mg 11/21/23 11:55 Clopidogrel Bisulfate 75 Mg Tablet PO DAILY CELINE Fentanyl 100 mls @ 2.5 mls/hr 11/21/23 07:55 11/21/23 12:00 CONT INF 75 mcg/hr UD CELINE 7.5 mls/hr Titration Protocol 25 MCG/HR Propofol 1,000 mg in 100 mls @ 5.274 mls/hr 11/21/23 07:55 11/21/23 12:00 Diprivan CONT INF 25 mcg/kg/min .Q12H CELINE 13.2 mls/hr Titration Protocol 10 MCG/KG/MIN Sodium Chloride 1,000 mls @ 999 mls/hr 11/21/23 11:55 IV 11/21/23 14:55 .Q1H1M CELINE Protocol Norepinephrine Bitartrate 8 mg 250 mls @ 9.375 mls/hr 11/21/23 11:55 / Sodium Chloride CONT INF .[id number] CELINE Protocol 5 MCG/MIN Vancomycin IV-PHARMACY TO DOSE 500 mls @ 250 mls/hr 11/21/23 11:55 1 each/ Sodium Chloride IV X1 PRN Rx to Dose Protocol Levofloxacin 750 mg in 150 mls @ 100 mls/hr 11/21/23 11:55 Levaquin Iv IV 11/28/23 11:56 Q24 CELINE Propofol 1,000 mg in 100 mls @ 5.274 mls/hr 11/21/23 11:55 Diprivan CONT INF .Q12H CELINE Protocol 10 MCG/KG/MIN Heparin Sodium/Dextrose 25,000 units in 250 mls @ 0 mls/hr 11/21/23 11:55 CONT INF .Q0M [facility] Protocol As Directed Piperacillin Sod/Tazobactam 50 mls @ 12.5 mls/hr 11/21/23 14:00 Sod 3.375 gm/ Sodium Chloride IV Q8 CELINE Sodium Chloride 250 mls @ 15 mls/hr 11/21/23 12:24 IV .[id number] PRN Additional IVPB Infusion Sodium Chloride 250 mls @ 15 mls/hr 11/21/23 12:24 IV .[id number] PRN Saline Flush Metoprolol Tartrate 12.5 mg 11/21/23 14:00 Metoprolol Tartrate 25 Mg Tablet PO BID [facility] Protocol Ondansetron HCl 4 mg 11/21/23 11:55 Ondansetron 4 Mg/2 Ml Vial IV Q8H PRN PRN NAUSEA/VOMITING Sodium Chloride 10 - 40 ml 11/21/23 12:24 0.9% Saline Lock 10 Ml Syringe IV UD PRN SALINE FLUSH Physical Exam Const healthy appearing General Appearance: patient mechanically ventilated HEENT normocephalic and external ears normal Mouth: endotracheal tube in place Eyes PERRL and conjunctivae normal Neck full ROM Chest inspection of chest normal Resp normal respiratory effort and normal air movement Cardio regular rate Extremity no pedal edema Neuro Sensorium / Orientation: sedated on vent Lab / Micro Data Attestation: I reviewed the patient's lab results. 11/21/23 07:09 11/21/23 07:09 Labs: Laboratory Results - last 24 hr 11/21/23 07:09: WBC 15.1 H, RBC 4.33 L, Hgb 14.3, Hct 44.7, MCV 103.2 H, MCH 33.0 H, MCHC 32.0, RDW Std Deviation 48.7 H, RDW Coeff of Sina 12.6, Plt Count 290, MPV 10.0, Immature Gran % (Auto) 2.700 H, Neut % (Auto) 28.9 L, Lymph % (Auto) 58.[address] H, [place] % (Auto) 5.4, Eos % (Auto) 4.0, Baso % (Auto) 0.9, Absolute Neuts (auto) 4.4, Absolute Lymphs (auto) 8.75 H, Nucleated RBC % 0.1, Reactive Lymphocytes 2+, PT 14.1, INR 1.1, APTT 32.3, Sodium 134 L, Potassium 3.7, Chloride 101, Carbon Dioxide 17.0 L, Anion Gap 16 H, BUN 18, Creatinine 1.81 H, Estim Creat Clear Calc 41.68, Est GFR (MDRD) Af Amer 48 L, Est GFR (MDRD) Non-Af 40 L, BUN/Creatinine Ratio 9.9 L, Glucose 295 H, Calcium 8.8, Total Bilirubin 0.30, AST 67 H, ALT 59, Alkaline Phosphatase 66, Total Creatine Kinase 161, Troponin I High Sens 67, Total Protein 7.3, Albumin 3.5, Globulin 3.8, Albumin/Globulin Ratio 0.9, Triglycerides 235 H 11/21/23 07:25: Lactic Acid 6.6 H* 11/21/23 07:30: Urine Color Yellow, Urine Clarity Clear, Urine pH 6.0, Ur Specific [place] 1.015, Urine Protein 100 H, Urine Glucose (UA) 50 H, Urine Ketones Negative, Urine Occult Blood 50 H, Urine Nitrite Negative, Urine Bilirubin Negative, Urine Urobilinogen Normal, Ur Leukocyte Esterase Negative, Urine RBC 0 SEEN, Urine WBC 0 SEEN, Ur Squamous Epith Cells 0 SEEN, Urine Bacteria 0 SEEN, Urine Mucus 0 SEEN 11/21/23 09:49: Troponin I High Sens 1709 H* 11/21/23 11:18: PT 13.8, INR 1.1, APTT 27.8 Micro: Microbiology 11/21/23 10:33 Mucosa - Nasopharyngeal Coronavirus COVID-19 PCR - Final 11/21/23 07:30 Urine Catheter - Jones Legionella Antigen - Final 11/21/23 07:30 Urine Catheter - Jones Streptococcus pneumoniae Antigen (M - Final ABG Data ABG results: ABG 11/21/23 11/21/23 07:39 11:25 Specimen Type ART ART Sample Site L Radial R Radial pH 7.18 L* 7.39 Bicarbonate Actual 18.3 L 19.9 L Total CO2 20 21 Base Excess -10 L -5 L O2 Saturation 99 100 H O2 % 100.0 85.0 ABG pCO2 48.8 H 32.9 L ABG pO2 192 H 259 H Jacob Test Positive N/A Respiration Rate 16 20 O2 Delivery Device Adult Vent Adult Vent Vent Mode AC AC Tidal Volume 500.0 500.0 POC PEEP 5 5 Crit Call To/Read Back Yes Blood Gas Notified Whom shanae Blood Gas Notified Time 07:41:44 Imaging Radiology Impression Chest X-Ray 11/21/23 07:18 IMPRESSION: 1. Opacification right superior hemithorax with a smooth concave curvilinear inferior margin. This is likely due to atelectasis of the right upper and middle lobes. Consider CT if clinically indicated. 2. Endotracheal tube tip is 3.1 cm above the ellen. 3. NG tube is in good position in the stomach. Electronically Signed: Ion Smith MD at 7:39 EDT , ADDENDUM: 11/21/23 0757 IMPRESSION: 1. Opacification right superior hemithorax with a smooth concave curvilinear inferior margin. This is likely due to atelectasis of the right upper and middle lobes. Consider CT if clinically indicated. 2. Endotracheal tube tip is 3.1 cm above the ellen. 3. NG tube is in good position in the stomach. N.B. : Arslan French DO, confirmed on 11/21/2023 07:50:45 (ET) that the referring physician received the results and does not require a verbal communication. Electronically Signed: Ion Smith MD at 7:39 EDT , Brain CT 11/21/23 08:19 IMPRESSION: 1. No acute intracranial abnormality. 2. Paranasal sinusitis Electronically Signed: Edmund Sellers MD at 9:52 EDT , Chest CTA 11/21/23 08:21 IMPRESSION: 1. Right upper lobe pneumonia with volume loss change. Subsegmental atelectasis of the left upper lobe and both lower lobes. 2. No evidence of acute pulmonary embolism. Electronically Signed: Edmund Sellers MD at 10:11 EDT , Echocardiogram 11/21/23 10:24 Interpretation Summary Mild concentric left ventricular hypertrophy. Severe hypokinesis to akinesis of anterior, apical and anteroseptal segments. Estimated LVEF 25-30%. Stage 1 diastolic dysfunction. Mildly dilated aortic root. Ordering Physician: Larry Zazueta Referring Physician: NO PCP Performed By: Wendi Ferrera RCS Assessment and Plan . Assessment and plan: 1. Cardiac arrest - in the setting of acute NV - event may be unwitnessed but he called 911 so downtime suspected to be brief - ROSC was rapid - evidence of sufficient neurologic function to obviate need for TTM 2. NSTEMI ? recurrent chest pain weeks prior to his admission. - ECG negative - 2nd troponin leak substantial 1700+ - ASA/ heparin drip started - vasopressors for c-shock started - case reviewed with cardiology apparently 3. Nonsustained VT ? Possibly related to above echo ordered for subsequent eval 4. Acute hypoxic respiratory failure - blood gases reviewed, vent adjusted - question of RUL aspiration event on chest CT - defer SAT/SBT 24 hours 5. Pneumonia ? Do suspect aspiration pneumonia following patient cardiopulmonary arrest. Patient was started on broad-spectrum antibiotic therapy cultures sent with plan to de-escalate 6. ALBIN ? Acute versus chronic baseline creatinine unknown. - urine studies ordered - US ordered 7. Hyponatremia ? Patient started on IV fluids with daily monitoring BMPs ordered 11. DVT prophylaxis ? Patient is on heparin Critical Care Time: 60 minutes The entirety of this encounter was done via Telemedicine
[2023-11-21] MEDS: Norepinephrine 8 MG in 0.9% Normal Saline (250mL Bag) 242 ML 9.4 MG CONT INF (12:58)
--- NOTE | 2023-11-21 13:33 | RAD_ITS ---
EXAM: XR CHEST, 1 VIEW CLINICAL INDICATION: STEMI TECHNIQUE: Frontal view of the chest. COMPARISON: XR Chest dated 11/21/2023 FINDINGS: LUNGS AND PLEURAL SPACES: Interval reexpansion of the right upper lobe atelectasis. Residual right upper and middle lobe opacities suggestive of pneumonia. HEART: Normal heart size. MEDIASTINUM: No mediastinal or hilar mass. BONES/JOINTS: No acute abnormality. TUBES, LINES AND DEVICES: The endotracheal tube (ETT) is in satisfactory position with tip 4.2 cm above the ellen. Enteric tube tip is not seen but is below the diaphragm. RAD/Chest 1 View (Portable) IMPRESSION: Interval reexpansion of the right upper lobe. Residual right upper and middle lobe opacity suggestive of pneumonia. Electronically Signed: Edmund Sellers MD at 13:59 EDT ,
[2023-11-21] MEDS: Aspirin 81 MG TAB.CHEW 324 MG NG (13:37)
[2023-11-21] MEDS: Clopidogrel Bisulfate 75 MG Tablet PO (13:37)
[2023-11-21] MEDS: HEPARIN/D5w 25,000 UNITS 25,000 UNITS/250 ML IV.SOLN. 10 UNITS CONT INF (13:40)
[2023-11-21 13:41] LABS: Base Excess -9 mmol/L (-2 to +2); Bicarbonate 17.4 mmol/L (22-26); Blood Gas Specimen Type ART; Mode AC; O2 Delivery Device Adult Vent; PEEP 5; PO2 128 mmHG (75-100); RR 16; SITE R Radial; SO2 99 % (95-99); Total Carbon Dioxide 19 mmol/L; pCO2 37.6 mmHg (35-45); pH 7.27 (7.35-7.45)
[2023-11-21 13:49] LABS: Bedside Glucose 202 mg/dL (74-106)
[2023-11-21] MEDS: Sodium Bicarbonate 8.4% 50 ML Syringe 50 MEQ IV (13:56)
--- NOTE | 2023-11-21 14:21 | PN.HOSP_ITS ---
Hospitalist Note Nursing noticed changes in telemetry. EKG ordered and showed EKG at [address] elevations in V1-4 and III. STEMI alert called at 1330. Dr. Kearney and I arrived shortly thereafter in the room. Patient was intubated and agitated; Moving all extremities. Dr. Kearney called Dr. Rand to make him aware of the STEMI. Dr. Kearney contacted Dr. Zazueta who had already left the hospital. I discussed with the patient's family and updated them on his condition. I personally took his son and to see him in his ICU room. Patient was already treated with ASA 324mg and heparin gtt. Patient had an ABG that showed pH 7.27 pCO2 37.6 pO2 128: consistent with metabolic acidosis w concomitant respiratory acidosis. I ordered and patient received 1 amp on bicarb. Echo showed an EF 25- 30% with stage I DD. Patient subsequently taken to the supervisor laboratory where he had 2 stents to the LAD and 1 to the circumflex. Family updated.
--- NOTE | 2023-11-21 14:41 | NURSING ---
Patient in the labview programmer at 14:07. No longer in the ICU
--- NOTE | 2023-11-21 15:47 | CL.I_ITS ---
Patient Name: HAY CONTRERAS Study Date: 11/21/2023 Performing: Birgit Rand MD Ht: 72 inches 182.88 cm : 1955 Wt: 193.79 lbs 87.9 kg Age: 68 Gender: male BSA: 2.1 PROCEDURE(S) PERFORMED DC02-(94389)LHC/COR IC16-(69903/[id number])AMI, DARREN OR PTCA, ARTERY/GRAFT, SINGLE VESSEL IC12-(32580/C9600)DARREN W/WO PTCA, SINGLE CORONARY ARTERY CLINICAL PROFILE AND CO-MORBIDITIES Indications: Resuscitated Cardiac Arrest, ACS <= 24 hrs Heart Failure: None Angina Classification Anginal Classification w/in 2 Weeks: CCS IV CAD Presentations: STEMI. Symptom onset Date/Time: Time Not Available CONCLUSIONS 95% Mid, 70% Prox LAD 90% Mid LCX 80% Prox to distal RCA Successful PTCA/DARREN Mid LAD using Steph Bristol 3.0x30 mm Successful DARREN Prox LAD using Steph Bristol 3.0x18 mm Successful DARREN Mid LCX using Steph Bristol 2.5x15 mm RECOMMENDATIONS ASA Indefinitley Brilinta for at least 12 months Staged PCI to RCA DESCRIPTION OF PROCEDURE The patient arrived to the procedure lab. The risks and benefits of the procedure as well as a full description of our services here and lack of surgical backup were fully explained to the patient and/or their significant other prior to the catheterization. The Timeout was completed, verifying the correct patient and procedure. The patient's procedural site was prepped and draped in the usual fashion. Local anesthetic was given subcutaneously to right radial region with Lidocaine 2%. Using a modified Seldinger technique, arterial access was obtained via the right radial artery, a 6Fr sheath was inserted.. Left Coronary Artery selective angiography was performed in multiple views using a 5 Fr.. Left Ventriculography was performed in PULIDO projection using a 5 Fr.. LV to AO pullback pressures were then recordedThe images were reviewed and options discussed. A decision was then made to proceed with an Intervention, IVUS or other adjunct procedure. xb3 Guide catheter was inserted and engaged into the LCA. runthrough Guide wire was advanced to the LAD. emerge 2.5 x 12 Balloon catheter was advanced across lesion in the LAD, mid. PTCA balloon inflated at 6 atms for 10 secs. Angiogram performed post balloon dilatation. frontier 3.0 x 30 Drug Eluting stent was advanced across the lesion in the LAD, mid. Angiogram performed post stent deployment. 3.00x 15 Balloon catheter was inserted post stent. Angiogram performed post balloon dilatation. steph 3.0 x 18 Drug Eluting stent was advanced across the lesion in the LAD, proximal. Angiogram performed post stent deployment. nc emerge 3.0 x 15 Balloon catheter was inserted post stent. steph 2.5 15 Drug Eluting stent was advanced across the lesion in the circumflex, mid. Angiogram performed post stent deployment. nc emerge 2.5 x 12w Balloon catheter was advanced across lesion in the circumflex, mid. Angiogram performed post balloon dilatation. The arterial sheath was pulled and a TR Band was applied for hemostasis CORONARY ANGIOGRAPHY DOMINANCE: Right Dominant LEFT HEART ASSESSMENT Left Ventricular Ejection Fraction: Not assessed LVEDP: 39 mmHg LEFT MAIN: No significant disease noted LEFT ANTERIOR DESCENDING ARTERY: LAD: Tubular 60% Distal lesion in LAD Calcified Eccentric 70% Proximal lesion in LAD Tubular 95% Mid lesion in LAD DIAGONAL 2: Tubular 60% Proximal lesion in DIAG2 OM 1: Tubular 50% Proximal lesion in MARG1 OM 2: Tubular 50% Proximal lesion in MARG1 RIGHT CORONARY ARTERY: RCA: Tubular Calcified 80% Proximal lesion in RCA Tubular 65% Distal lesion in RCA INTERVENTION INFORMATION LESION SITE: LAD (Mid) Lesion Complexity: High/C, lesion length: 28 mm, culprit lesion: Yes Pre Stenosis: 95 % Pre intervention SAPPHIRE flow: 3 PROCEDURE: Drug Eluting Stent with pre and post dilatation Post Stenosis: 0 % Post intervention SAPPHIRE flow: 3 Lesion Devices: Terumo .014 180cm Runthrough Extra Floppy straight Cordis 6 Fr XB3.0 100cm Guide Catheter Geovanny Sci EMERGE MR 2.50x12 BALLOON Medtronic 3.0 x 30 STEPH FRONTIER DARREN Geovanny Sci NC EMERGE MR 3.00x15 BALLOON LESION SITE: LAD (Proximal) Lesion Complexity: Non-High/Non-C, lesion length: 16 mm, culprit lesion: No Pre Stenosis: 70 % Pre intervention SAPPHIRE flow: 3 PROCEDURE: Drug Eluting Stent with post dilatation Post Stenosis: 0 % Post intervention SAPPHIRE flow: 3 Lesion Devices: Terumo .014 180cm Runthrough Extra Floppy straight Cordis 6 Fr XB3.0 100cm Guide Catheter Geovanny Sci NC EMERGE MR 3.00x15 BALLOON Medtronic 3.0 x 18 STEPH FRONTIER DARREN LESION SITE: Circumflex (Mid) Lesion Complexity: Non-High/Non-C, lesion length: 14 mm, culprit lesion: No Pre Stenosis: 90 % Pre intervention SAPPHIRE flow: 3 PROCEDURE: Drug Eluting Stent with post dilatation 0 % Post intervention SAPPHIRE flow: 3 Lesion Devices: Terumo .014 180cm Runthrough Extra Floppy straight Cordis 6 Fr XB3.0 100cm Guide Catheter Medtronic 2.50 x 15 STEPH FRONTIER DARREN Geovanny Sci NC EMERGE MR 2.50x12 BALLOON COMPLICATIONS No Complications PROCEDURE MEDICATIONS Oxygen: 50 % FiO2 via ventilator. See Resp Record for Settings Brilinta 180 mg PO @ 11/21/2023 14:42:43 Heparin 7000 unit(s) IV 11/21/2023 14:36:35 Heparin 4000 unit(s) IV 11/21/2023 15:32:37 Nitro 100 mcg IC 11/21/2023 15:12:52 Verapamil 2.5mg, Ntg 200mcgs, given IA 11/21/2023 14:29:02 SUMMARY OF HEMODYNAMIC DATA Time AIR REST ECG 14:23:10 AO 134/78 (99) SA 14:29:52 LV 151/23, 40 15:20:01 LV 150/22, 40 15:20:10 LVp 152/24, 39 15:20:20 AOp 147/82 (109) 15:20:27 15:39:19 Signed By Birgit Rand MD On 11/21/2023 15:46:34 Birgit Rand MD
[2023-11-21 15:50] LABS: ACT Activated Clotting Time 140 sec (74-137)
[2023-11-21 15:50] LABS: ACT Activated Clotting Time 232 sec (74-137)
[2023-11-21] MEDS: levoFLOXacin IV 750 MG/150 ML BAG 100 MG IV (15:57)
[2023-11-21] MEDS: Propofol 10MG/Ml 1,000 MG/100 ML Bottle 10.5 MG CONT INF (16:00)
--- NOTE | 2023-11-21 16:00 | EKG12_ITS ---
Test Reason : EKG CHANGE Blood Pressure : / mmHG Vent. Rate : 057 BPM Atrial Rate : 057 BPM P-R Int : 198 ms QRS Dur : 098 ms QT Int : 514 ms P-R-T Axes : 071 062 089 degrees QTc Int : 500 ms Critical Test Result: STEMI Sinus bradycardia ST elevation consider anterolateral injury or acute infarct ST elevation consider inferior injury or acute infarct Prolonged QT ACUTE MD / STEMI Consider right ventricular involvement in acute inferior infarct Abnormal ECG Confirmed by Ion Bryant ([id number]), editor managing director LESLIE BLOOD ([id number]) on 11/23/2023 1:57:58 PM Referred By: MICHELLE Confirmed By:Ion Bryant
--- NOTE | 2023-11-21 16:08 | NURSING ---
Patient back from label press operator at 16:00.
--- NOTE | 2023-11-21 16:26 | NURSING ---
Patient came back from clinical lab technologist with the levophed running at 4mcg/min. Was stopped at reuqest of Physician, turned back on at 16:15 due to decreased blood pressures at this time.
[2023-11-21] MEDS: Furosemide 40 MG/4 ML Vial IV (16:42)
[2023-11-21] MEDS: 0.9% Normal Saline (1000mL) 1,000 ML 75 ML IV (16:43)
[2023-11-21] MEDS: Vancomycin HCl 1,250 MG in 0.9% Normal Saline (250mL Bag) 250 ML 167 MG IV (17:32)
[2023-11-21] MEDS: fentaNYL drip 100 ML 10 MCG CONT INF (18:28)
--- NOTE | 2023-11-21 18:29 | PCM.RX.CS ---
Consult Antibiotic Management Pharmacy has been consulted to manage selected antibiotic: Vancomycin Type of Intervention Type of Consult: New start Suspected Infection Suspected Infection: Pneumonia Prior Doses of Antibiotics Prior Doses of Antibiotics Received/Current Regimen: Received 1250mg iv x 1 as loading dose 11.21.23 @0482. Labs Labs: Sodium 134 mmol/L (136-145) L 11/21/23 07:09 Potassium 3.7 mmol/L (3.5-5.1) 11/21/23 07:09 Chloride 101 mmol/L (98-107) 11/21/23 07:09 Carbon Dioxide 17.0 mmol/L (21.0-32.0) L 11/21/23 07:09 Anion Gap 16 (5-15) H 11/21/23 07:09 BUN 18 mg/dL (7-18) 11/21/23 07:09 Creatinine 1.81 mg/dL (0.70-1.30) H 11/21/23 07:09 Est GFR (MDRD) Af Amer 48 mL/min (>60) L 11/21/23 07:09 Est GFR (MDRD) Non-Af 40 mL/min (>60) L 11/21/23 07:09 BUN/Creatinine Ratio 9.9 RATIO (10-20) L 11/21/23 07:09 Glucose 295 mg/dL (74-106) H 11/21/23 07:09 Microbiology Microbiology: Microbiology 11/21/23 08:50 Sputum, Induced/Lukens Gram Stain - Final 11/21/23 10:33 Mucosa - Nasopharyngeal Coronavirus COVID-19 PCR - Final 11/21/23 07:30 Urine Catheter - Jones Legionella Antigen - Final 11/21/23 07:30 Urine Catheter - Jones Streptococcus pneumoniae Antigen (M - Final Dosing Weight Weight used for dosin.9 kg Estimated Creatinine Clearance Estimated Creatinine Clearance: 42ml/min Goal Trough Goal Trough: 15-20 mcg/mL Pharmacy Plan for Drug Dosing Pharmacy Plan for Drug Dosing: Recommend 750mg iv q12h starting 12hrs after 1250mg dose. Trough level before 4th dose. Pharmacy Service will continue to monitor and adjust dosing as required. Follow-Up Labs Follow-Up Labs: Trough: Vancomycin (11.23.23 @5880)
[2023-11-21] MEDS: Chlorhexidine 15 ML PO (21:10)
[2023-11-21] MEDS: TICAGRELOR 90 MG TABLET PO (21:10)
[2023-11-21] MEDS: Atorvastatin Calcium 80 MG Tablet PO (21:10)
[2023-11-21] MEDS: 0.9% Saline Lock 10 ML Syringe IV (21:11)
[2023-11-21] MEDS: Piperacil/Tazobactam 3.375 GM in 0.9% Normal Saline (50mL MB+) 50 ML IV (21:11)
--- NOTE | 2023-11-21 21:45 | RAD_ITS ---
EXAM: XR CHEST, 1 VIEW CLINICAL INDICATION: picc line placement TECHNIQUE: Frontal view of the chest. 9:45 PM. COMPARISON: Previous chest radiographs of 11/21/2023. FINDINGS: LUNGS AND PLEURAL SPACES: Minimal patchy airspace disease is noted within the right upper lobe, improved. Lungs are otherwise clear. No pneumothorax or pleural effusion. HEART: Unremarkable. Cardiac silhouette not enlarged. Normal pulmonary vasculature for technique. MEDIASTINUM: Stable minimal elongation and calcification of the thoracic aorta. Trachea is midline. TUBES, LINES AND DEVICES: PICC line now enters from the right and the catheter tip is projected over the mid SVC, in satisfactory position. ET tube and NG tube remain in place. RAD/CXR for Line Placement IMPRESSION: Satisfactory PICC line positioning. No pneumothorax. Further interval improvement of the right upper lobe infiltrates as compared with earlier studies of this date. Electronically Signed: Vikas Abarca MD at 23:11 EDT ,
[2023-11-21] MEDS: Propofol 10MG/Ml 1,000 MG/100 ML Bottle 18.5 MG CONT INF (22:26)
[2023-11-22] VITALS (65 sets, daily range): BP systolic 63–174; BP diastolic 43–74; PULSE 60–118; RESP 14–20; TEMP 36.7–37.2; O2SAT 92–100; BMI 24.7
[2023-11-22] MEDS: fentaNYL drip 100 ML 12.5 MCG CONT INF ×3 (01:41→16:28)
[2023-11-22] MEDS: Propofol 10MG/Ml 1,000 MG/100 ML Bottle 15.8 MG CONT INF ×3 (03:13→22:12)
[2023-11-22] MEDS: CHLORHEXIDINE GLUC 2% CLOTH 1 EACH TOWELETTE TOPICAL (03:13)
[2023-11-22 03:22] LABS: Absolute Lymphocyte Count 2.12 X10^3/uL (0.83-4.51); Absolute Neutrophil Count 10.5 X10^3/uL (2.0-7.7); Basophil# 0.04 X10^3/uL; Basophil% 0.3 % (0-1); Eosinophil# 0.06 X10^3/uL; Eosinophils% 0.4 % (0-5); Hematocrit 37.2 % (40-54); Hemoglobin 12.8 g/dL (13.0-16.5); Lymphocyte # 2.12 X10^3/ul (0.83-4.51); Lymphocyte % 15.2 % (19-41); Mean Corp Hgb Conc 34.4 g/dL (32-36); Mean Corpuscular Hgb 34.2 pg (27.0-32.0); Mean Corpuscular Volume 99.5 fL (80-94); Mean Platelet Vol. 9.6 fl (6.2-12.0); Monocyte# 1.16 X10^3/uL; Monocyte% 8.3 % (0-10); NRBC Flagged by Analyzer 0 % (0-5); Neutrophil # 10.52 X10^3/uL (2.7-7.7); Neutrophil % 75.4 % (47-70); Platelet Count 291 K/mm3 (150-450); RBC Distribution Width CV 13.1 % (11.6-14.6); RBC Distribution Width SD 48.1 fl (35.1-43.9); Red Blood Count 3.74 M/mm3 (4.6-6.2)
[2023-11-22 03:42] LABS: ALB/GLOB Ratio 0.9 RATIO (0.9-2.4); AST(SGOT) 106 U/L (15-37); Alanine Aminotransfer ALT/SGPT 64 U/L (16-61); Albumin, Serum 2.8 g/dL (3.2-5.0); Alkaline Phosphatase 49 U/L (45-117); Anion Gap 9 (5-15); BUN 19 mg/dL (7-18); BUN/Creat Ratio 14.6 RATIO (10-20); Calcium,Total 7.7 mg/dL (8.5-10.1); Chloride 109 mmol/L (98-107); Cholesterol 167 mg/dL (200); EST Glomerular Filtration Rate 58 mL/min (>60); Est Glom Filt Rate - Afr Amer 70 mL/min (>60); Estimated Creatinine Clearance 58.03 ml/min; Globulin 3.1 g/dL (2.2-4.2); Glucose 118 mg/dL (74-106); High Density Lipoprotein 53 mg/dL; Magnesium 1.4 mg/dL (1.6-2.6); Phosphorus 2.4 mg/dL (2.5-4.9); Potassium 3.5 mmol/L (3.5-5.1); Protein, Total 5.9 g/dL (6.4-8.2); Sodium Level 140 mmol/L (136-145); Triglycerides 271 mg/dL; Very Low Density Lipoprotein 54 mg/dL (5-40)
[2023-11-22] MEDS: Vancomycin HCl 750 MG in 0.9% Normal Saline (250mL Bag) 250 ML 250 MG IV ×2 (04:19→18:20)
--- NOTE | 2023-11-22 05:35 | RAD_ITS ---
EXAM: XR CHEST, 1 VIEW CLINICAL INDICATION: vent patient TECHNIQUE: Frontal view of the chest. COMPARISON: Previous chest radiographs of 11/21/2023. FINDINGS: LUNGS AND PLEURAL SPACES: The previously noted right upper lobe airspace disease has essentially resolved. Increased density seen along the medial aspect of the right upper lung is felt to be due to normal brachiocephalic vessels, accentuated by patient rotation to the right. No definite acute pulmonary infiltrates are identified. No pneumothorax or pleural effusion. HEART: Heart size and pulmonary vasculature are within normal limits for technique. MEDIASTINUM: Thoracic aorta remains mildly elongated. No mediastinal widening. BONES/JOINTS: Unremarkable. No acute fracture. SOFT TISSUES: Unremarkable. TUBES, LINES AND DEVICES: ET tube, NG tube and PICC line remain in place, in satisfactory position. pvc monitor leads overlie the chest wall. RAD/Chest 1 View (Portable) IMPRESSION: Interval resolution of right upper lobe airspace disease. No acute cardiopulmonary disease process identified. Electronically Signed: Vikas Abarca MD at 6:17 EDT ,
[2023-11-22] MEDS: Piperacil/Tazobactam 3.375 GM in 0.9% Normal Saline (50mL MB+) 50 ML IV ×3 (05:39→20:46)
[2023-11-22] MEDS: Norepinephrine 8 MG in 0.9% Normal Saline (250mL Bag) 242 ML 18.8 MG CONT INF (05:39)
--- NOTE | 2023-11-22 07:05 | PN.HOSP_ITS ---
Reason for Visit Reason for Visit: Diagnoses ST elevation (STEMI) myocardial infarction of unspecified site (11/21/23) Non-ST elevation (NSTEMI) myocardial infarction (11/21/23) Cardiac arrest, cause unspecified (11/21/23) Pneumonia, unspecified organism (11/21/23) Disorder of kidney and ureter, unspecified (11/21/23) Subjective Subjective Patient underwent left heart catheterization found to have 95% Mid, 70% Prox LAD, 90% Mid LCX, 80% Prox to distal RCA. Patient had stent to the LAD and left circumflex lesion plan is for patient to undergo staged intervention of his RCA lesion. Patient had to be started on Levophed for persistently low blood pressure. Remains on the vent but arousable Objective Data Objective Data Vital Signs: Vital Signs Temp Pulse Resp BP Pulse Ox O2 Del Method FiO2 98.9 F 65 18 121/59 H 93 Mechanical Ventilator 30 11/22/23 04:00 11/22/23 07:00 11/22/23 07:00 11/22/23 07:00 11/22/23 07:00 11/22/23 07:00 11/22/23 07:00 Oxygen Delivery Method Mechanical Ventilator Weight: 82.9 kg Body Mass Index (BMI) 24.7 Intake & Output: Intake and Output for Last 24 Hours 11/20/23 11/21/23 11/22/23 23:59 23:59 23:59 Intake Total 5249.71 / 5322.61 1745.70 / 1745.70 Output Total 2550 / 2550 300 / 300 Balance 2699.71 / 2772.61 1445.70 / 1445.70 Lab / Micro Data 11/22/23 03:10 11/22/23 03:10 Labs: Laboratory Results - last 24 hr 11/21/23 07:09: WBC 15.1 H, RBC 4.33 L, Hgb 14.3, Hct 44.7, MCV 103.2 H, MCH 33.0 H, MCHC 32.0, RDW Std Deviation 48.7 H, RDW Coeff of Sina 12.6, Plt Count 290, MPV 10.0, Immature Gran % (Auto) 2.700 H, Neut % (Auto) 28.9 L, Lymph % (Auto) 58.1 H, [place] % (Auto) 5.4, Eos % (Auto) 4.0, Baso % (Auto) 0.9, Absolute Neuts (auto) 4.4, Absolute Lymphs (auto) 8.75 H, Nucleated RBC % 0.1, Reactive Lymphocytes 2+, PT 14.1, INR 1.1, APTT 32.3, Sodium 134 L, Potassium 3.7, Chloride 101, Carbon Dioxide 17.0 L, Anion Gap 16 H, BUN 18, Creatinine 1.81 H, Estim Creat Clear Calc 41.68, Est GFR (MDRD) Af Amer 48 L, Est GFR (MDRD) Non-Af 40 L, BUN/Creatinine Ratio 9.9 L, Glucose 295 H, Calcium 8.8, Total Bilirubin 0.30, AST 67 H, ALT 59, Alkaline Phosphatase 66, Total Creatine Kinase 161, Troponin I High Sens 67, Total Protein 7.3, Albumin 3.5, Globulin 3.8, Albumin/Globulin Ratio 0.9, Triglycerides 235 H 11/21/23 07:25: Lactic Acid 6.6 H* 11/21/23 07:30: Urine Color Yellow, Urine Clarity Clear, Urine pH 6.0, Ur Specific [place] 1.015, Urine Protein 100 H, Urine Glucose (UA) 50 H, Urine Ketones Negative, Urine Occult Blood 50 H, Urine Nitrite Negative, Urine Bilirubin Negative, Urine Urobilinogen Normal, Ur Leukocyte Esterase Negative, Urine RBC 0 SEEN, Urine WBC 0 SEEN, Ur Squamous Epith Cells 0 SEEN, Urine Bacteria 0 SEEN, Urine Mucus 0 SEEN 11/21/23 09:49: Troponin I High Sens 1709 H* 11/21/23 11:18: PT 13.8, INR 1.1, APTT 27.8 11/21/23 13:00: Lactic Acid 2.0 11/21/23 13:32: POC Glucose 202 H 11/21/23 14:30: Activated Clotting Time 140 H 11/21/23 15:26: Activated Clotting Time 232 H 11/22/23 03:10: WBC 14.0 H, RBC 3.74 L, Hgb 12.8 L, Hct 37.2 L, MCV 99.5 H, MCH 34.2 H, MCHC 34.4 D, RDW Std Deviation 48.1 H, RDW Coeff of Sina 13.1, Plt Count 291, MPV 9.6, Immature Gran % (Auto) 0.400, Neut % (Auto) 75.4 H, Lymph % (Auto) 15.2 L, [place] % (Auto) 8.3, Eos % (Auto) 0.4, Baso % (Auto) 0.3, Absolute Neuts (auto) 10.5 H, Absolute Lymphs (auto) 2.12, Nucleated RBC % 0, Sodium 140, Potassium 3.5, Chloride 109 H, Carbon Dioxide 22.0, Anion Gap 9, BUN 19 H, Creatinine 1.30, Estim Creat Clear Calc 58.03, Est GFR (MDRD) Af Amer 70, Est GFR (MDRD) Non-Af 58 L, BUN/Creatinine Ratio 14.6, Glucose 118 H, Calcium 7.7 L, Phosphorus 2.4 L, Magnesium 1.4 L, Total Bilirubin 0.40, AST 106 H, ALT 64 H, Alkaline Phosphatase 49, Total Protein 5.9 L, Albumin 2.8 L, Globulin 3.1, Albumin/Globulin Ratio 0.9, Triglycerides 271 H, Cholesterol 167, LDL Cholesterol 60, VLDL Cholesterol 54 H, HDL Cholesterol 53 Micro: Microbiology 11/21/23 08:50 Sputum, Induced/Lukens Gram Stain - Final 11/21/23 10:33 Mucosa - Nasopharyngeal Coronavirus COVID-19 PCR - Final 11/21/23 07:30 Urine Catheter - Jones Legionella Antigen - Final 11/21/23 07:30 Urine Catheter - Jones Streptococcus pneumoniae Antigen (M - Final ABG Data ABG results: ABG 11/21/23 11/21/23 11/21/23 07:39 11:25 13:37 Specimen Type ART ART ART Sample Site L Radial R Radial R Radial pH 7.18 L* 7.39 7.27 L Bicarbonate Actual 18.3 L 19.9 L 17.4 L Total CO2 20 21 19 Base Excess -10 L -5 L -9 L O2 Saturation 99 100 H 99 O2 % 100.0 85.0 50.0 ABG pCO2 48.8 H 32.9 L 37.6 ABG pO2 192 H 259 H 128 H Jacob Test Positive N/A N/A Respiration Rate 16 20 16 O2 Delivery Device Adult Vent Adult Vent Adult Vent Vent Mode AC AC AC Tidal Volume 500.0 500.0 500.0 POC PEEP 5 5 5 Crit Call To/Read Back Yes Blood Gas Notified Whom shanae Blood Gas Notified Time 07:41:44 Radiography Diagnostic Testing: Radiology Impression Chest X-Ray 11/21/23 07:18 IMPRESSION: 1. Opacification right superior hemithorax with a smooth concave curvilinear inferior margin. This is likely due to atelectasis of the right upper and middle lobes. Consider CT if clinically indicated. 2. Endotracheal tube tip is 3.1 cm above the ellen. 3. NG tube is in good position in the stomach. Electronically Signed: Ion Smith MD at 7:39 EDT , ADDENDUM: 11/21/23 0757 IMPRESSION: 1. Opacification right superior hemithorax with a smooth concave curvilinear inferior margin. This is likely due to atelectasis of the right upper and middle lobes. Consider CT if clinically indicated. 2. Endotracheal tube tip is 3.1 cm above the ellen. 3. NG tube is in good position in the stomach. N.B. : Arslan French DO, confirmed on 11/21/2023 07:50:45 (ET) that the referring physician received the results and does not require a verbal communication. Electronically Signed: Ion Smith MD at 7:39 EDT , Brain CT 11/21/23 08:19 IMPRESSION: 1. No acute intracranial abnormality. 2. Paranasal sinusitis Electronically Signed: Edmund Sellers MD at 9:52 EDT , Chest CTA 11/21/23 08:21 IMPRESSION: 1. Right upper lobe pneumonia with volume loss change. Subsegmental atelectasis of the left upper lobe and both lower lobes. 2. No evidence of acute pulmonary embolism. Electronically Signed: Edmund Sellers MD at 10:11 EDT , Echocardiogram 11/21/23 10:24 Interpretation Summary Mild concentric left ventricular hypertrophy. Severe hypokinesis to akinesis of anterior, apical and anteroseptal segments. Estimated LVEF 25-30%. Stage 1 diastolic dysfunction. Mildly dilated aortic root. Ordering Physician: Larry Zazueta Referring Physician: ZACHARY PCP Performed By: Wendi Ferrera RCS Chest X-Ray 11/21/23 13:33 IMPRESSION: Interval reexpansion of the right upper lobe. Residual right upper and middle lobe opacity suggestive of pneumonia. Electronically Signed: Edmund Sellers MD at 13:59 EDT , Chest X-Ray 11/21/23 21:45 IMPRESSION: Satisfactory PICC line positioning. No pneumothorax. Further interval improvement of the right upper lobe infiltrates as compared with earlier studies of this date. Electronically Signed: Vikas Abarca MD at 23:11 EDT , Chest X-Ray 11/22/23 05:35 IMPRESSION: Interval resolution of right upper lobe airspace disease. No acute cardiopulmonary disease process identified. Electronically Signed: Vikas Abarca MD at 6:17 EDT , Physical Exam Narrative GENERAL: On the vent but arousable HEENT: ET tube in place EYES; Anicteric, Normal Conjunctiva NECK; supple, normal thyroid, RESPIRATORY: Diminished to auscultation CARDIOVASCULAR: Regular S1 S2, GI: soft, normoactive bowel sounds, : No Renal angle tenderness; EXTREMITIES: No edema, no clubbing, MUSCULOSKELETAL: no muscle wasting NEURO: No lateralizing signs SKIN: No Rash PSYCH;on the vent Assessment & Plan Assessment/Plan (1) Cardiopulmonary arrest with successful resuscitation: PLAN: Plan Patient is a 68-year-old gentleman presented with cardiac arrest with elevated troponin 1. Acute cardiopulmonary arrest ? Possibly precipitated by patient acute myocardial infarction. Patient was successfully resuscitated using ACLS with return of spontaneous circulation subsequently intubated and admitted to the intensive care unit 2. Acute STEMI ? Patient had apparently been experiencing recurrent chest pain weeks prior to his admission. Initial EKG and set of cardiac enzymes came back unremarkable however subsequent troponin came back at 06/21/2008. Patient started on aspirin. NG tube also started on heparin drip ordered a 2D echo with consultation placed to cardiology Case discussed with Dr. Rand -11/22/2023 subsequent EKG obtained once patient arrived at the emergency department came back consistent with ST segment elevation RI patient had been started on heparin Case discussed with Dr. Rand patient underwent emergency left heart catheterization findings, procedure and recommendations as below 95% Mid, 70% Prox LAD 90% Mid LCX 80% Prox to distal RCA Successful PTCA/DARREN Mid LAD using [place] 3.0x30 mm Successful DARREN Prox LAD using [place] 3.0x18 mm Successful DARREN Mid LCX using [place] 2.5x15 mm RECOMMENDATIONS ASA Indefinitley Brilinta for at least 12 months Staged PCI to RCA 3. Nonsustained VT ? Possibly related to above echo ordered for subsequent eval 4. Acute hypoxic respiratory failure ? Following cardiopulmonary arrest ? Initial events settings rating patient admitted to the intensive care unit. Consult placed to director non profit for vent management 5. Pneumonia ? Do suspect aspiration pneumonia following patient cardiopulmonary arrest. Patient was started on broad-spectrum antibiotic therapy cultures sent with plan to de-escalate 6. Lactic acidosis ? Related to hypoperfusion from patient's cardiopulmonary arrest as well as possible sepsis from patient's pneumonia 7. Metabolic acidosis ? Secondary to above 8. Shock ? Secondary to a combination of septic shock as well as cardiogenic shock following patient acute ST RI. Patient was started on Levophed due to persistently low blood pressure 9. Septic shock ? Secondary to pneumonia patient had leukocytosis and source of infection as well as evidence of endorgan dysfunction with lactic acidosis and renal failure (baseline creatinine unknown). Patient was resuscitated with IV fluid per protocol after cultures have been sent patient blood pressure did drop necessitating use of 10. Acute kidney injury ? Patient initially baseline creatinine was unknown kidney function however did improve with IV fluids 11. Hyponatremia ? Patient started on IV fluids with daily monitoring BMPs ordered ? Resolved 12. DVT prophylaxis ? Patient is on heparin Total spent in the patient's overall evaluation,decision-making process, review of diagnostic data, adjustment of management, discussion with other providers, nursing nursing and ancillary staff involved in patient's care documentation, 50 minutes Advance planning; did discuss with the patient's family regarding advanced directives as well as CODE STATUS. Did explain the various scenarios involved ( FULL CODE, DNR CCA, DNR CCA with no intubation, and DNR CC and what each meant) decision was made for patient to remain full code. Order was placed. Time spent on discussion 16 minutes. Charges/Coding Visit Charges Inpatient E&M: 99574 Subs Hosp L3 Procedures Hospitalists Procedures: [id number] Advncd Care Plan 30 Min
[2023-11-22] MEDS: TICAGRELOR 90 MG TABLET PO ×2 (07:30→20:45)
[2023-11-22] MEDS: Aspirin 81 MG TAB.CHEW PO (07:30)
[2023-11-22] MEDS: Enoxaparin 40 MG/0.4 ML Syringe SC (07:31)
[2023-11-22] MEDS: Chlorhexidine 15 ML PO ×2 (07:39→20:45)
[2023-11-22] MEDS: Furosemide 40 MG/4 ML Vial IV ×2 (07:39→17:27)
--- NOTE | 2023-11-22 08:51 | PN.CC_ITS ---
Objective Data Objective Data Vital Signs: Vital Signs Last response 3 Temperature 36.8 C 11/22/23 08:00 Temperature Source Temporal 11/22/23 08:00 Pulse Rate 63 11/22/23 08:00 Pulse Strength Normal (2+) 11/22/23 07:53 Respiratory Rate 18 11/22/23 08:00 Respiratory Effort Mechanically Ventilated 11/22/23 07:49 Respiratory Depth Normal 11/22/23 07:49 Respiratory Pattern Normal 11/22/23 07:49 Blood Pressure 117/57 L 11/22/23 08:00 Blood Pressure Mean 77 11/22/23 08:00 Blood Pressure Source Monitor 11/22/23 08:00 Blood Pressure Position Semi-Fowlers 11/22/23 07:00 Blood Pressure Location Left Arm 11/22/23 07:00 Pulse Ox 94 11/22/23 08:00 Oxygen Delivery Method Mechanical Ventilator 11/22/23 08:00 Fraction of Inspired Oxygen (FIO2) 30 11/22/23 08:00 I&O: I&O Last 24 Hours 3 11/21/23 11/21/23 11/22/23 11:59 23:59 11:59 Intake Total 1071.35 / 5322.61 4178.36 / 5322.61 1855.54 / 1855.54 Output Total 2550 / 2550 300 / 300 Balance 1071.35 / 2772.61 1628.36 / 2772.61 1555.54 / 1555.54 I&O: Total Stay 3 11/21/23 06:57 thru 11/22/23 08:27 Intake Total 7105.25 Output Total 2850 Balance 4255.25 Current Meds Ordered / Administered: Current meds ordered / Administered 3 Generic Name Dose Route Start Last Admin Trade Name Freq PRN Reason Stop Dose Admin Acetaminophen 650 mg 11/21/23 11:55 Acetaminophen 325 Mg Tablet PO Q6H PRN PRN Pain 1-10 Or Fever>100.7 Albuterol Sulfate 2.5 mg 11/21/23 11:55 Albuterol 2.5 Mg/3 Ml Vial.Neb. INHALATION Q2H PRN PRN DYSPNEA/WHEEZING/SOB Aspirin 81 mg 11/22/23 08:00 11/22/23 07:30 Aspirin 81 Mg Tab.Chew PO 81 mg BREAKFAST CELINE Administration Atorvastatin Calcium 80 mg 11/21/23 22:00 11/21/23 21:10 Atorvastatin Calcium 80 Mg Tablet PO 80 mg QHS CELINE Administration Atropine Sulfate 0.5 mg 11/21/23 15:49 Atropine Sulfate 1 Mg/10 Ml Syringe IV UD PRN HR <50 bpm Chlorhexidine Gluconate 15 ml 11/21/23 22:00 11/22/23 07:39 Chlorhexidine 15 Ml PO 15 ml BID CELINE Administration Chlorhexidine Gluconate 1 each 11/22/23 10:00 11/22/23 03:13 Chlorhexidine Gluc 2% Cloth 1 Each [place] TOPICAL 1 each DAILY CELINE Administration Enoxaparin Sodium 40 mg 11/22/23 10:00 11/22/23 07:31 Enoxaparin 40 Mg/0.4 Ml Syringe SC 40 mg DAILY CELINE Administration Furosemide 40 mg 11/21/23 15:55 11/22/23 07:39 Furosemide 40 Mg/4 Ml Vial IV 40 mg DAILY CELINE Administration Protocol Fentanyl 100 mls @ 2.5 mls/hr 11/21/23 07:55 11/22/23 08:27 CONT INF 125 mcg/hr UD CELINE 12.5 mls/hr Administration Protocol 25 MCG/HR Norepinephrine Bitartrate 8 mg 250 mls @ 9.375 mls/hr 11/21/23 11:55 11/22/23 08:00 / Sodium Chloride CONT INF 10 mcg/min .[id number] CELINE 18.8 mls/hr Titration Protocol 5 MCG/MIN Vancomycin IV-PHARMACY TO DOSE 500 mls @ 250 mls/hr 11/21/23 11:55 1 each/ Sodium Chloride IV PRN PRN Rx to Dose Protocol Propofol 1,000 mg in 100 mls @ 5.274 mls/hr 11/21/23 11:55 11/22/23 08:27 Diprivan CONT INF 30 mcg/kg/min .Q12H CELINE 15.8 mls/hr Administration Protocol 10 MCG/KG/MIN Piperacillin Sod/Tazobactam 50 mls @ 12.5 mls/hr 11/21/23 14:00 11/22/23 05:39 Sod 3.375 gm/ Sodium Chloride IV 12.5 mls/hr Q8 CELINE Administration Sodium Chloride 250 mls @ 15 mls/hr 11/21/23 12:24 IV .[id number] PRN Additional IVPB Infusion Sodium Chloride 250 mls @ 15 mls/hr 11/21/23 12:24 IV .[id number] PRN Saline Flush Levofloxacin 750 mg in 150 mls @ 100 mls/hr 11/23/23 10:00 Levaquin Iv IV Q48 CELINE Vancomycin HCl 750 mg/ Sodium 265 mls @ 250 mls/hr 11/22/23 05:00 11/22/23 05:23 Chloride IV Infused Q12H CELINE Infusion Lisinopril 2.5 mg 11/22/23 10:00 11/22/23 07:32 Lisinopril 2.5 Mg Tablet PO Not Given DAILY CELINE Metoprolol Tartrate 12.5 mg 11/21/23 14:00 11/22/23 07:31 Metoprolol Tartrate 25 Mg Tablet PO Not Given BID [facility] Protocol Ondansetron HCl 4 mg 11/21/23 11:55 Ondansetron 4 Mg/2 Ml Vial IV Q8H PRN PRN NAUSEA/VOMITING Sodium Chloride 10 - 40 ml 11/21/23 12:24 11/21/23 21:11 0.9% Saline Lock 10 Ml Syringe IV 40 ml UD PRN Administration SALINE FLUSH Sodium Chloride 500 ml 11/21/23 15:49 0.9% Normal Saline 500 Ml Iv.Soln. IV BOLUS PRN VASO-VAGAL PROTOCOL Ticagrelor 90 mg 11/21/23 22:00 11/22/23 07:30 Ticagrelor 90 Mg Tablet PO 90 mg BID CELINE Administration Vancomycin Protocol 1 lab 11/23/23 02:30 Vancomycin Trough/Random Due MC 11/23/23 06:30 DAILY [facility] Lab / Micro Data Attestation: I reviewed the patient's lab results. 11/22/23 03:10 11/22/23 03:10 Labs: Laboratory Results - last 24 hr 11/21/23 07:09: Total Creatine Kinase 161, Triglycerides 235 H 11/21/23 09:49: Troponin I High Sens 1709 H* 11/21/23 11:18: PT 13.8, INR 1.1, APTT 27.8 11/21/23 13:00: Lactic Acid 2.0 11/21/23 13:32: POC Glucose 202 H 11/21/23 14:30: Activated Clotting Time 140 H 11/21/23 15:26: Activated Clotting Time 232 H 11/22/23 03:10: WBC 14.0 H, RBC 3.74 L, Hgb 12.8 L, Hct 37.2 L, MCV 99.5 H, MCH 34.2 H, MCHC 34.4 D, RDW Std Deviation 48.1 H, RDW Coeff of Sina 13.1, Plt Count 291, MPV 9.6, Immature Gran % (Auto) 0.400, Neut % (Auto) 75.4 H, Lymph % (Auto) 15.2 L, [place] % (Auto) 8.3, Eos % (Auto) 0.4, Baso % (Auto) 0.3, Absolute Neuts (auto) 10.5 H, Absolute Lymphs (auto) 2.12, Nucleated RBC % 0, Sodium 140, Potassium 3.5, Chloride 109 H, Carbon Dioxide 22.0, Anion Gap 9, BUN 19 H, Creatinine 1.30, Estim Creat Clear Calc 58.03, Est GFR (MDRD) Af Amer 70, Est GFR (MDRD) Non-Af 58 L, BUN/Creatinine Ratio 14.6, Glucose 118 H, Calcium 7.7 L, Phosphorus 2.4 L, Magnesium 1.4 L, Total Bilirubin 0.40, AST 106 H, ALT 64 H, Alkaline Phosphatase 49, Total Protein 5.9 L, Albumin 2.8 L, Globulin 3.1, Albumin/Globulin Ratio 0.9, Triglycerides 271 H, Cholesterol 167, LDL Cholesterol 60, VLDL Cholesterol 54 H, HDL Cholesterol 53 Micro: Microbiology 11/21/23 08:50 Sputum, Induced/Lukens Gram Stain - Final 11/21/23 10:33 Mucosa - Nasopharyngeal Coronavirus COVID-19 PCR - Final 11/21/23 07:30 Urine Catheter - Jones Legionella Antigen - Final 11/21/23 07:30 Urine Catheter - Jones Streptococcus pneumoniae Antigen (M - Final ABG Data ABG results: ABG 11/21/23 11/21/23 11:25 13:37 Specimen Type ART ART Sample Site R Radial R Radial pH 7.39 7.27 L Bicarbonate Actual 19.9 L 17.4 L Total CO2 21 19 Base Excess -5 L -9 L O2 Saturation 100 H 99 O2 % 85.0 50.0 ABG pCO2 32.9 L 37.6 ABG pO2 259 H 128 H Jacob Test N/A N/A Respiration Rate 20 16 O2 Delivery Device Adult Vent Adult Vent Vent Mode AC AC Tidal Volume 500.0 500.0 POC PEEP 5 5 Imaging Radiology Impression Brain CT 11/21/23 08:19 IMPRESSION: 1. No acute intracranial abnormality. 2. Paranasal sinusitis Electronically Signed: Edmund Sellers MD at 9:52 EDT , Chest CTA 11/21/23 08:21 IMPRESSION: 1. Right upper lobe pneumonia with volume loss change. Subsegmental atelectasis of the left upper lobe and both lower lobes. 2. No evidence of acute pulmonary embolism. Electronically Signed: Edmund Sellers MD at 10:11 EDT , Echocardiogram 11/21/23 10:24 Interpretation Summary Mild concentric left ventricular hypertrophy. Severe hypokinesis to akinesis of anterior, apical and anteroseptal segments. Estimated LVEF 25-30%. Stage 1 diastolic dysfunction. Mildly dilated aortic root. Ordering Physician: Larry Zazueta Referring Physician: NO PCP Performed By: Wendi Ferrera RCS Chest X-Ray 11/21/23 13:33 IMPRESSION: Interval reexpansion of the right upper lobe. Residual right upper and middle lobe opacity suggestive of pneumonia. Electronically Signed: Edmund Sellers MD at 13:59 EDT , Chest X-Ray 11/21/23 21:45 IMPRESSION: Satisfactory PICC line positioning. No pneumothorax. Further interval improvement of the right upper lobe infiltrates as compared with earlier studies of this date. Electronically Signed: Vikas Abarca MD at 23:11 EDT , Chest X-Ray 11/22/23 05:35 IMPRESSION: Interval resolution of right upper lobe airspace disease. No acute cardiopulmonary disease process identified. Electronically Signed: Vikas Abarca MD at 6:17 EDT , Assessment and Plan . Assessment and plan: Assessment and plan: 1. Cardiac arrest - in the setting of acute MS - event may be unwitnessed but he called 911 so downtime suspected to be brief - ROSC was rapid - evidence of sufficient neurologic function to obviate need for TTM 2. NSTEMI ? recurrent chest pain weeks prior to his admission. - initial ECG negative - 2nd troponin leak substantial 1700+ - s/p PCI x 3, hemodynamics improving 3. Nonsustained VT ? Possibly related to above - echo ordered for subsequent eval 4. Acute hypoxic respiratory failure - blood gases reviewed, vent adjusted - question of RUL aspiration event on chest CT - currently failing SAT- defer SAT/SBT 24 hours more to avoid overstimulation in the current setting of recent MS 5. RUL process ? suspect aspiration pneumonia following patient cardiopulmonary arrest. - follow up CXR and cultures in AM, possibly de-escalate Abx 6. ALBIN ? Acute versus chronic baseline creatinine unknown. - urine studies ordered - US ordered 7. Hyponatremia ? Patient started on IV fluids with daily monitoring BMPs ordered 11. DVT prophylaxis ? Patient is on heparin Critical Care Time: 60 minutes The entirety of this encounter was done via Telemedicine Critical Care Time: 50 minutes The entirety of this encounter was done via Telemedicine Physical Exam Const General Appearance: patient mechanically ventilated HEENT normocephalic Mouth: endotracheal tube in place and OG tube in place Eyes EOMs intact bilaterally Neck full ROM Resp Effort and Inspection: tachypneic Auscultation: diminished lung sounds Psych Psych Narrative: Uncooperative Activity / Motor Behavior: restless Subjective Subjective Events reviewed- per report experienced a rhythm change, went to medical laboratory technologist for PCI x 3 yesterday. This morning is thrashing about on vent, difficult to sedate.
[2023-11-22 09:17] LABS: Allen Test Positive; Base Excess -5 mmol/L (-2 to +2); Bicarbonate 20.1 mmol/L (22-26); Blood Gas Specimen Type ART; Mode AC; O2 Delivery Device Adult Vent; PEEP 5; PO2 54 mmHG (75-100); RR 16; SITE L Radial; SO2 88 % (95-99); Total Carbon Dioxide 21 mmol/L; pCO2 32.9 mmHg (35-45); pH 7.39 (7.35-7.45)
[2023-11-22] MEDS: Albuterol 2.5 MG/3 ML VIAL.NEB. INHALATION ×2 (09:17→15:39)
[2023-11-22] MEDS: TITRATION PARAMETER CHANGE 1 EACH IV (09:31)
--- NOTE | 2023-11-22 10:00 | EKG12_ITS ---
Test Reason : AM EKG Blood Pressure : / mmHG Vent. Rate : 069 BPM Atrial Rate : 069 BPM P-R Int : 180 ms QRS Dur : 100 ms QT Int : 490 ms P-R-T Axes : 067 045 089 degrees QTc Int : 525 ms Normal sinus rhythm Nonspecific ST and T wave abnormality Abnormal ECG When compared with ECG of 22-NOV-2023 05:18, MANUAL COMPARISON REQUIRED, DATA IS UNCONFIRMED Confirmed by EFRAIN PALMER, MARILYN ([id number]), brands editor LESLIE BLOOD ([id number]) on 11/24/2023 5:53:31 AM Referred By: Confirmed By:MARILYN ZUNIGA MD
--- NOTE | 2023-11-22 10:49 | PN.CARD_ITS ---
Subjective Subjective Remains on the ventilator. Requiring propofol and fentanyl infusions for sedation. Objective Data Vital Signs: Vital Signs Temp Pulse Resp BP Pulse Ox O2 Del Method FiO2 98.2 F 73 18 102/54 L 96 Mechanical Ventilator 40 11/22/23 08:00 11/22/23 10:00 11/22/23 10:00 11/22/23 10:45 11/22/23 10:00 11/22/23 10:00 11/22/23 10:00 Oxygen Delivery Method Mechanical Ventilator Weight: 182 lb 12.211 oz Body Mass Index (BMI) 24.7 Intake & Output: Intake and Output for Last 24 Hours 11/20/23 11/21/23 11/22/23 23:59 23:59 23:59 Intake Total 5249.71 / 5322.61 1993. Output Total 2550 / 2550 800 / 800 Balance 2699.71 / 2772.61 1194.06 / 1194.06 Lab / Micro Data 11/22/23 03:10 11/22/23 03:10 Labs: Laboratory Results - last 24 hr 11/21/23 11:18: PT 13.8, INR 1.1, APTT 27.8 11/21/23 13:00: Lactic Acid 2.0 11/21/23 13:32: POC Glucose 202 H 11/21/23 14:30: Activated Clotting Time 140 H 11/21/23 15:26: Activated Clotting Time 232 H 11/22/23 03:10: WBC 14.0 H, RBC 3.74 L, Hgb 12.8 L, Hct 37.2 L, MCV 99.5 H, MCH 34.2 H, MCHC 34.4 D, RDW Std Deviation 48.1 H, RDW Coeff of Sina 13.1, Plt Count 291, MPV 9.6, Immature Gran % (Auto) 0.400, Neut % (Auto) 75.4 H, Lymph % (Auto) 15.2 L, [place] % (Auto) 8.3, Eos % (Auto) 0.4, Baso % (Auto) 0.3, Absolute Neuts (auto) 10.5 H, Absolute Lymphs (auto) 2.12, Nucleated RBC % 0, Sodium 140, Potassium 3.5, Chloride 109 H, Carbon Dioxide 22.0, Anion Gap 9, BUN 19 H, Creatinine 1.30, Estim Creat Clear Calc 58.03, Est GFR (MDRD) Af Amer 70, Est GFR (MDRD) Non-Af 58 L, BUN/Creatinine Ratio 14.6, Glucose 118 H, Calcium 7.7 L, Phosphorus 2.4 L, Magnesium 1.4 L, Total Bilirubin 0.40, AST 106 H, ALT 64 H, Alkaline Phosphatase 49, Total Protein 5.9 L, Albumin 2.8 L, Globulin 3.1, Albumin/Globulin Ratio 0.9, Triglycerides 271 H, Cholesterol 167, LDL Cholesterol 60, VLDL Cholesterol 54 H, HDL Cholesterol 53 Micro: Microbiology 11/21/23 08:50 Sputum, Induced/Lukens Gram Stain - Final 11/21/23 10:33 Mucosa - Nasopharyngeal Coronavirus COVID-19 PCR - Final 11/21/23 07:30 Urine Catheter - Jones Legionella Antigen - Final 11/21/23 07:30 Urine Catheter - Jones Streptococcus pneumoniae Antigen (M - Final ABG Data ABG results: ABG 11/21/23 11/21/23 11/22/23 11:25 13:37 09:13 Specimen Type ART ART ART Sample Site R Radial R Radial L Radial pH 7.39 7.27 L 7.39 Bicarbonate Actual 19.9 L 17.4 L 20.1 L Total CO2 21 19 21 Base Excess -5 L -9 L -5 L O2 Saturation 100 H 99 88 L O2 % 85.0 50.0 30.0 ABG pCO2 32.9 L 37.6 32.9 L ABG pO2 259 H 128 H 54 L Jacob Test N/A N/A Positive Respiration Rate 20 16 16 O2 Delivery Device Adult Vent Adult Vent Adult Vent Vent Mode AC AC AC Tidal Volume 500.0 500.0 500.0 POC PEEP 5 5 5 Cardiology Labs/Tests 11/21/23 11:18: PT 13.8, INR 1.1, APTT 27.8 11/21/23 11:25: pH 7.39, Bicarbonate Actual 19.9 L, Base Excess -5 L, O2 Saturation 100 H, ABG pCO2 32.9 L, ABG pO2 259 H, Jacob Test N/A 11/21/23 13:00: Lactic Acid 2.0 11/21/23 13:37: pH 7.27 L, Bicarbonate Actual 17.4 L, Base Excess -9 L, O2 Saturation 99, ABG pCO2 37.6, ABG pO2 128 H, Jacob Test N/A 11/22/23 03:10: WBC 14.0 H, RBC 3.74 L, Hgb 12.8 L, Hct 37.2 L, MCV 99.5 H, MCH 34.2 H, MCHC 34.4 D, Plt Count 291, MPV 9.6, Immature Gran % (Auto) 0.400, Neut % (Auto) 75.4 H, Lymph % (Auto) 15.2 L, [place] % (Auto) 8.3, Eos % (Auto) 0.4, Baso % (Auto) 0.3, Absolute Neuts (auto) 10.5 H, Nucleated RBC % 0, Sodium 140, Potassium 3.5, Chloride 109 H, Carbon Dioxide 22.0, Anion Gap 9, BUN 19 H, Creatinine 1.30, Est GFR (MDRD) Af Amer 70, Est GFR (MDRD) Non-Af 58 L, BUN/Creatinine Ratio 14.6, Glucose 118 H, Calcium 7.7 L, Phosphorus 2.4 L, M agnesium 1.4 L, Total Bilirubin 0.40, Triglycerides 271 H, Cholesterol 167, LDL Cholesterol 60, VLDL Cholesterol 54 H, HDL Cholesterol 53 11/22/23 09:13: pH 7.39, Bicarbonate Actual 20.1 L, Base Excess -5 L, O2 Saturation 88 L, ABG pCO2 32.9 L, ABG pO2 54 L, Jacob Test Positive Rhythm: EKG: ECHO: Stress Test: Cardiac Cath: PCI: CT Surgery: Holter monitor: EPS: PPM: CXR: Chest CT Scan: Radiography Diagnostic Testing: Radiology Impression Echocardiogram 11/21/23 10:24 Interpretation Summary Mild concentric left ventricular hypertrophy. Severe hypokinesis to akinesis of anterior, apical and anteroseptal segments. Estimated LVEF 25-30%. Stage 1 diastolic dysfunction. Mildly dilated aortic root. Ordering Physician: Larry Zazueta Referring Physician: NO PCP Performed By: Wendi Ferrera RCS Chest X-Ray 11/21/23 13:33 IMPRESSION: Interval reexpansion of the right upper lobe. Residual right upper and middle lobe opacity suggestive of pneumonia. Electronically Signed: Edmund Sellers MD at 13:59 EDT , Chest X-Ray 11/21/23 21:45 IMPRESSION: Satisfactory PICC line positioning. No pneumothorax. Further interval improvement of the right upper lobe infiltrates as compared with earlier studies of this date. Electronically Signed: Vikas Abarca MD at 23:11 EDT , Chest X-Ray 11/22/23 05:35 IMPRESSION: Interval resolution of right upper lobe airspace disease. No acute cardiopulmonary disease process identified. Electronically Signed: Vikas Abarca MD at 6:17 EDT , Physical Exam Narrative Sedated on ventilator. Heart sounds 1 and 2 noted. Chest clear to auscultation anteriorly. No ankle edema. Assessment & Plan Assessment/Plan (1) Cardiopulmonary arrest with successful resuscitation: PLAN: Secondary to acute coronary syndrome. See #2 below. (2) STEMI (ST elevation myocardial infarction): PLAN: Initial EKGs did not show any ST elevation however subsequent ECG showed acute ST elevation myocardial infarction. Status post emergent angiography with percutaneous intervention to the LAD and left circumflex. Continue aspirin. Continue ticagrelor. (3) Coronary artery disease: PLAN: See #2 above. Status post percutaneous intervention to the LAD and left circumflex. For staged intervention to RCA after neurological recovery. (4) Acute systolic CHF (congestive heart failure): PLAN: Severe LV systolic dysfunction noted on echocardiogram. Beta-blockers and BERTHA inhibitors when blood pressure able to tolerate. Start on spironolactone. Continue furosemide. (5) Shock: PLAN: Blood pressure persistently on the lower side. Severe LV systolic dysfunction. However also consider element of sepsis with likely aspiration pneumonia. Propofol and fentanyl and infusion also contributing to lower blood pressure. Try to wean off Levophed. Start on dopamine if needed. (6) Pneumonia: PLAN: Repeat chest x-ray. Manage as per internal medicine/critical care.
--- NOTE | 2023-11-22 11:01 | RAD_ITS ---
EXAM: XR CHEST, 1 VIEW CLINICAL INDICATION: RESPIRATORY FAILURE TECHNIQUE: Frontal view of the chest. COMPARISON: XR Chest dated 11/22/2023 FINDINGS: LUNGS AND PLEURAL SPACES: Mild peribronchial thickening right lower lobe. HEART: Normal heart size. MEDIASTINUM: No mediastinal or hilar mass. BONES/JOINTS: No acute abnormality. TUBES, LINES AND DEVICES: The endotracheal tube (ETT) is in satisfactory position. Right peripherally inserted central catheter (PICC) tip in the mid superior vena cava. Enteric tube extends into the stomach. RAD/Chest 1 View (Portable) IMPRESSION: Mild peribronchial thickening right lower lobe. Electronically Signed: Edmund Sellers MD at 11:33 EDT ,
[2023-11-22] MEDS: DOPamine IV 800 MG/250 ML IV.SOLN. 7.8 MG CONT INF (11:51)
[2023-11-22] MEDS: Propofol 10MG/Ml 1,000 MG/100 ML Bottle 10.5 MG CONT INF (14:01)
[2023-11-22] MEDS: Spironolactone 25 MG Tablet 12.5 MG PO (17:27)
[2023-11-22] MEDS: Atorvastatin Calcium 80 MG Tablet PO (20:45)
[2023-11-23] VITALS (32 sets, daily range): BP systolic 98–174; BP diastolic 52–95; PULSE 70–86; RESP 14–25; TEMP 36.6–37.1; O2SAT 91–99; BMI 24.3
[2023-11-23] MEDS: fentaNYL drip 100 ML 12.5 MCG CONT INF (00:49)
[2023-11-23 03:46] LABS: Absolute Lymphocyte Count 1.92 X10^3/uL (0.83-4.51); Absolute Neutrophil Count 10.3 X10^3/uL (2.0-7.7); Basophil# 0.07 X10^3/uL; Basophil% 0.5 % (0-1); Eosinophil# 0.05 X10^3/uL; Eosinophils% 0.4 % (0-5); Hematocrit 36.3 % (40-54); Hemoglobin 12.3 g/dL (13.0-16.5); Lymphocyte # 1.92 X10^3/ul (0.83-4.51); Lymphocyte % 14.1 % (19-41); Mean Corp Hgb Conc 33.9 g/dL (32-36); Mean Corpuscular Hgb 33.3 pg (27.0-32.0); Mean Corpuscular Volume 98.4 fL (80-94); Mean Platelet Vol. 9.6 fl (6.2-12.0); Monocyte% 8.8 % (0-10); NRBC Flagged by Analyzer 0 % (0-5); Neutrophil # 10.31 X10^3/uL (2.7-7.7); Neutrophil % 75.8 % (47-70); Platelet Count 269 K/mm3 (150-450); RBC Distribution Width CV 13.3 % (11.6-14.6); RBC Distribution Width SD 47.9 fl (35.1-43.9); Red Blood Count 3.69 M/mm3 (4.6-6.2); White Blood Count 13.6 K/mm3 (4.4-11.0)
[2023-11-23 04:00] LABS: Anion Gap 6 (5-15); BUN 16 mg/dL (7-18); BUN/Creat Ratio 10.3 RATIO (10-20); Chloride 109 mmol/L (98-107); Creatinine, Serum 1.56 mg/dL (0.70-1.30); EST Glomerular Filtration Rate 47 mL/min (>60); Est Glom Filt Rate - Afr Amer 57 mL/min (>60); Estimated Creatinine Clearance 48.36 ml/min; Glucose 142 mg/dL (74-106); Sodium Level 141 mmol/L (136-145)
[2023-11-23 04:02] LABS: Vancomycin, Trough Level 15.2 ug/mL (5.0-15.0)
[2023-11-23] MEDS: Vancomycin Trough/Random Due 1 LAB MC (04:07)
--- NOTE | 2023-11-23 04:19 | PCM.RX.CS ---
Consult Antibiotic Management Pharmacy has been consulted to manage selected antibiotic: Vancomycin Type of Intervention Type of Consult: Follow-up Suspected Infection Suspected Infection: Pneumonia Labs Labs: Sodium 141 mmol/L (136-145) 11/23/23 03:15 Potassium 3.0 mmol/L (3.5-5.1) L 11/23/23 03:15 Chloride 109 mmol/L (98-107) H 11/23/23 03:15 Carbon Dioxide 26.0 mmol/L (21.0-32.0) 11/23/23 03:15 Anion Gap 6 (5-15) 11/23/23 03:15 BUN 16 mg/dL (7-18) 11/23/23 03:15 Creatinine 1.56 mg/dL (0.70-1.30) H 11/23/23 03:15 Est GFR (MDRD) Af Amer 57 mL/min (>60) L 11/23/23 03:15 Est GFR (MDRD) Non-Af 47 mL/min (>60) L 11/23/23 03:15 BUN/Creatinine Ratio 10.3 RATIO (10-20) 11/23/23 03:15 Glucose 142 mg/dL (74-106) H 11/23/23 03:15 Vancomycin Trough 15.2 ug/mL (5.0-15.0) H 11/23/23 03:15 Microbiology Microbiology: Microbiology 11/21/23 07:30 Urine Catheter - Jones Urine Culture - Preliminary Culture exhibits no growth. 11/21/23 07:30 Urine Catheter - Jones Legionella Antigen - Final 11/21/23 07:30 Urine Catheter - Jones Streptococcus pneumoniae Antigen (M - Final 11/21/23 08:50 Sputum, Induced/Lukens Gram Stain - Final 11/21/23 08:50 Sputum, Induced/Lukens Respiratory Culture - Preliminary Appears to be normal respiratory deloris. Further studies to follow. 11/21/23 10:33 Mucosa - Nasopharyngeal Coronavirus COVID-19 PCR - Final Dosing Weight Weight used for dosin.5 kg Estimated Creatinine Clearance Estimated Creatinine Clearance: 48 Goal Trough Goal Trough: 15-20 mcg/mL Pharmacy Plan for Drug Dosing Pharmacy Plan for Drug Dosing: Vancomycin trough level of 15.2 was within the target range of 15-20, however the lab was drawn early- just 8.9hrs post-dose. Adjusting the result with aminoglycoside dosing calculator shows that a new dose of 1000mg q12h should give an estimated trough of 17.0. Will initiate this and draw another trough prior to fourth dose of the new regimen. Pharmacy Service will continue to monitor and adjust dosing as required. Follow-Up Labs Follow-Up Labs: Trough: Vancomycin Date/Time Labs Ordered Labs to be done on [date and time ordered]: 11/24/23 @1600
[2023-11-23] MEDS: Vancomycin IV 1,000 MG/200 ML BAG 200 MG IV (04:28)
[2023-11-23] MEDS: CHLORHEXIDINE GLUC 2% CLOTH 1 EACH TOWELETTE TOPICAL (04:28)
[2023-11-23] MEDS: Piperacil/Tazobactam 3.375 GM in 0.9% Normal Saline (50mL MB+) 50 ML IV ×3 (05:34→20:14)
--- NOTE | 2023-11-23 05:55 | RAD_ITS ---
INDICATION: vent patient EXAMINATION/TECHNIQUE: X-RAY - XR Chest 1 View AP portable. 4:47 AM COMPARISON: 11/22/2023 FINDINGS: LINES/DEVICES: Tip of the endotracheal tube is 3 cm above the ellen. NG tube tip in the stomach. PICC unchanged. LUNGS: Minimal patchy opacity at the right lung base not significantly changed. No consolidation. No pneumothorax. MEDIASTINUM: Unremarkable. CARDIAC SILHOUETTE: Not enlarged. BONES AND SOFT TISSUES: No acute abnormalities. RAD/Chest 1 View (Portable) IMPRESSION: Minimal right basilar atelectasis or infiltrate. Electronically Signed: Geri José MD at 5:22 EDT ,
--- NOTE | 2023-11-23 05:55 | US_ITS ---
STUDY: RENAL ULTRASOUND - COMPLETE REASON FOR EXAM: Male, 68 years old. sulma TECHNIQUE: Ultrasound evaluation of the kidneys was performed with real-time and static arshad-scale imaging. COMPARISON: None. FINDINGS: RIGHT KIDNEY: Normal location of the right kidney, which is normal in size. The right kidney measures 11.4 cm x 5 cm x 5.6 cm. There is a normal cortex of the right kidney. The renal cortex measures 1.2 cm. There is no right renal mass or cyst. There are no right renal calculi. There is no right hydronephrosis. DISTAL RIGHT URETER: There is non-visualization of the distal right ureter. There is no demonstrated right ureterovesical junction calculus. There is no demonstrated right ureteral jet. LEFT KIDNEY: Normal location of the left kidney, which is normal in size. The left kidney measures 11.4 cm x 3.9 cm x 5.9 cm. There is a normal cortex of the left kidney. The renal cortex measures 1.3 cm. There is no left renal mass or cyst. There are no left renal calculi. There is no left hydronephrosis. DISTAL LEFT URETER: There is non-visualization of the distal left ureter. There is no demonstrated left ureterovesical junction calculus. There is no demonstrated left ureteral jet. BLADDER: A Jones catheter is seen within the urinary bladder. Urinary bladder is empty. US/Kidney and Bladder IMPRESSION: Normal ultrasound of the kidneys. Electronically Signed: Dax Olivares MD at 9:28 EDT ,
--- NOTE | 2023-11-23 06:15 | PN.CC_ITS ---
Assessment & Plan Assessment/Plan (1) STEMI (ST elevation myocardial infarction): (2) Pneumonia: (3) Cardiopulmonary arrest with successful resuscitation: PLAN: Plan RECOMMENDATIONS: 1. Proceed with a trial of extubation this morning. 2. Once extubated, wean supplemental oxygen to maintain saturations at or above 90%. 3. Bedside swallow evaluation with dietary advancement as tolerated. 4. Continue Zosyn to complete 7 days of therapy. Okay to discontinue vancomycin from my perspective. 5. Remainder of goal-directed medical therapy per cardiology recommendations. 6. Encourage incentive spirometer use and mobilize patient as tolerated. 7. Continue appropriate DVT prophylaxis. IMPRESSIONS: 1. STEMI/cardiopulmonary arrest with ROSC The patient underwent emergent angiography with percutaneous intervention performed to the LAD and left circumflex. Continue goal-directed medical therapy per cardiology recommendations. 2. Acute hypoxemic respiratory failure Clinical concern for underlying aspiration pneumonia in the setting of #1. The patient remains on appropriate antimicrobial therapy, which I would recommend be continued to complete 7 days of therapy. He has otherwise improved from a respiratory perspective and passed his spontaneous breathing trial this morning. Therefore, we will plan to proceed with extubation. Once extubated, wean supplemental oxygen to maintain saturations at or above 90%. 3. Acute kidney injury Most likely prerenal in etiology. Continue to monitor urine output for now. No current indication for renal replacement therapy. Renal ultrasound has already been ordered. I would consider holding the patient's diuretics for now. TIME: 32 minutes of critical care time, independent of procedures, was spent addressing the patient's STEMI, cardiopulmonary arrest with ROSC, acute hypoxemic respiratory failure, review of all data and collaboration with the care team. Subjective Subjective The patient was seen and examined at the bedside this morning. Events from the last 24 hours have been reviewed. The patient is currently afebrile, hemodynamically stable and maintaining appropriate oxygen saturations on spontaneous mode mechanical ventilation. The patient is done well this morning on his spontaneous breathing trial. He is alert and appropriately interactive. Following my evaluation of the patient, he was successfully extubated at the bedside. Potassium was low this morning at 3.0 with a creatinine of 1.56. The patient remains on antimicrobials along with low-dose dopamine under the discretion of cardiology. Objective Data Objective Data The patient's most recent lab work, culture data and imaging studies have all been personally reviewed. Surface echocardiogram demonstrated mild concentric LVH with severe hypokinesis and an ejection fraction of 25 to 30%. Stage I diastolic dysfunction was noted. Infectious workup has been unrevealing to date. Vital Signs: Vital Signs Temp Pulse Resp BP Pulse Ox O2 Del Method FiO2 98.7 F 74 18 121/58 H 96 Mechanical Ventilator 40 11/23/23 04:00 11/23/23 05:00 11/23/23 05:00 11/23/23 05:00 11/23/23 05:00 11/23/23 05:00 11/23/23 05:00 Oxygen Delivery Method Mechanical Ventilator Weight: 179 lb 10.828 oz Body Mass Index (BMI) 24.3 Intake & Output: Intake and Output for Last 24 Hours 11/21/23 11/22/23 11/23/23 23:59 23:59 23:59 Intake Total 5249.71 / 5322.61 2908.11 / 2993.41 336.69 / 336.69 Output Total 2550 / 2550 2925 / 2925 250 / 250 Balance 2699.71 / 2772.61 -16.89 / 68.41 86.69 / 86.69 Lab / Micro Data Attestation: I reviewed the patient's lab results. 11/23/23 03:15 11/23/23 03:15 Labs: Laboratory Results - last 24 hr 11/23/23 03:15: WBC 13.6 H, RBC 3.69 L, Hgb 12.3 L, Hct 36.3 L, MCV 98.4 H, MCH 33.3 H, MCHC 33.9, RDW Std Deviation 47.9 H, RDW Coeff of Sina 13.3, Plt Count 269, MPV 9.6, Immature Gran % (Auto) 0.400, Neut % (Auto) 75.8 H, Lymph % (Auto) 14.1 L, [place] % (Auto) 8.8, Eos % (Auto) 0.4, Baso % (Auto) 0.5, Absolute Neuts (auto) 10.3 H, Absolute Lymphs (auto) 1.92, Nucleated RBC % 0, Sodium 141, P otassium 3.0 L, Chloride 109 H, Carbon Dioxide 26.0, Anion Gap 6, BUN 16, C reatinine 1.56 H, Estim Creat Clear Calc 48.36, Est GFR (MDRD) Af Amer 57 L, Est GFR (MDRD) Non-Af 47 L, BUN/Creatinine Ratio 10.3, Glucose 142 H, Calcium 8.0 L, Vancomycin Trough 15.2 H Micro: Microbiology 11/21/23 07:30 Urine Catheter - Jones Urine Culture - Preliminary Culture exhibits no growth. 11/21/23 07:30 Urine Catheter - Jones Legionella Antigen - Final 11/21/23 07:30 Urine Catheter - Jones Streptococcus pneumoniae Antigen (M - Final 11/21/23 08:50 Sputum, Induced/Lukens Gram Stain - Final 11/21/23 08:50 Sputum, Induced/Lukens Respiratory Culture - Preliminary Appears to be normal respiratory deloris. Further studies to follow. 11/21/23 10:33 Mucosa - Nasopharyngeal Coronavirus COVID-19 PCR - Final ABG Data ABG results: ABG 11/22/23 09:13 Specimen Type ART Sample Site L Radial pH 7.39 Bicarbonate Actual 20.1 L Total CO2 21 Base Excess -5 L O2 Saturation 88 L O2 % 30.0 ABG pCO2 32.9 L ABG pO2 54 L Jacob Test Positive Respiration Rate 16 O2 Delivery Device Adult Vent Vent Mode AC Tidal Volume 500.0 POC PEEP 5 Radiography Diagnostic Testing: Radiology Impression Chest X-Ray 11/22/23 05:35 IMPRESSION: Interval resolution of right upper lobe airspace disease. No acute cardiopulmonary disease process identified. Electronically Signed: Vikas Abarca MD at 6:17 EDT , Chest X-Ray 11/22/23 11:01 IMPRESSION: Mild peribronchial thickening right lower lobe. Electronically Signed: Edmund Sellers MD at 11:33 EDT , Chest X-Ray 11/23/23 05:55 IMPRESSION: Minimal right basilar atelectasis or infiltrate. Electronically Signed: Geri José MD at 5:22 EDT , Physical Exam Const alert and no apparent distress Constitutional Narrative: Remains intubated and mechanically ventilated. Currently tolerating spontaneous mode of mechanical ventilation. General Appearance: cooperative and patient mechanically ventilated HEENT normocephalic and head/scalp atraumatic Mouth: endotracheal tube in place and OG tube in place Eyes PERRL, EOMs intact bilaterally and conjunctivae normal Neck supple General: trachea midline Chest inspection of chest normal Resp normal respiratory effort Auscultation: Negative for rales, rhonchi or wheezes Cardio regular rate and regular rhythm GI normal to inspection, nondistended, normoactive bowel sounds Extremity no clubbing, cyanosis or edema Skin no rashes or lesions noted Neuro CN's II-XII intact bilaterally and no focal motor deficits Psych Psych Narrative: Alert and able to follow commands. Charges/Coding Procedures Hospitalists Procedures: 97102 Critical Care 1st Hr
--- NOTE | 2023-11-23 08:16 | PN.CARD_ITS ---
Subjective Subjective Successfully weaned off from the ventilator this morning. Awake. Comfortable. Objective Data Vital Signs: Vital Signs Temp Pulse Resp BP Pulse Ox O2 Del Method O2 Flow Rate 98.7 F 72 14 134/66 H 97 Nasal Cannula 2 11/23/23 04:00 11/23/23 07:15 11/23/23 07:15 11/23/23 07:15 11/23/23 07:15 11/23/23 07:15 11/23/23 07:15 FiO2 40 11/23/23 06:00 Oxygen Flow Rate (L/min) 2 Oxygen Delivery Method Nasal Cannula Weight: 179 lb 10.828 oz Body Mass Index (BMI) 24.3 Intake & Output: Intake and Output for Last 24 Hours 11/21/23 11/22/23 11/23/23 23:59 23:59 23:59 Intake Total 5249.71 / 5322.61 2908.11 / 2993.41 548.94 / 548.94 Output Total 2550 / 2550 2925 / 2925 450 / 450 Balance 2699.71 / 2772.61 -16.89 / 68.41 98.94 / 98.94 Lab / Micro Data 11/23/23 03:15 11/23/23 03:15 Labs: Laboratory Results - last 24 hr 11/23/23 03:15: WBC 13.6 H, RBC 3.69 L, Hgb 12.3 L, Hct 36.3 L, MCV 98.4 H, MCH 33.3 H, MCHC 33.9, RDW Std Deviation 47.9 H, RDW Coeff of Sina 13.3, Plt Count 269, MPV 9.6, Immature Gran % (Auto) 0.400, Neut % (Auto) 75.8 H, Lymph % (Auto) 14.1 L, [place] % (Auto) 8.8, Eos % (Auto) 0.4, Baso % (Auto) 0.5, Absolute Neuts (auto) 10.3 H, Absolute Lymphs (auto) 1.92, Nucleated RBC % 0, Sodium 141, P otassium 3.0 L, Chloride 109 H, Carbon Dioxide 26.0, Anion Gap 6, BUN 16, C reatinine 1.56 H, Estim Creat Clear Calc 48.36, Est GFR (MDRD) Af Amer 57 L, Est GFR (MDRD) Non-Af 47 L, BUN/Creatinine Ratio 10.3, Glucose 142 H, Calcium 8.0 L, Vancomycin Trough 15.2 H Micro: Microbiology 11/21/23 07:30 Urine Catheter - Jones Urine Culture - Preliminary Culture exhibits no growth. 11/21/23 07:30 Urine Catheter - Jones Legionella Antigen - Final 11/21/23 07:30 Urine Catheter - Jones Streptococcus pneumoniae Antigen (M - Final 11/21/23 08:50 Sputum, Induced/Lukens Gram Stain - Final 11/21/23 08:50 Sputum, Induced/Lukens Respiratory Culture - Preliminary Appears to be normal respiratory deloris. Further studies to follow. ABG Data ABG results: ABG 11/22/23 09:13 Specimen Type ART Sample Site L Radial pH 7.39 Bicarbonate Actual 20.1 L Total CO2 21 Base Excess -5 L O2 Saturation 88 L O2 % 30.0 ABG pCO2 32.9 L ABG pO2 54 L Jacob Test Positive Respiration Rate 16 O2 Delivery Device Adult Vent Vent Mode AC Tidal Volume 500.0 POC PEEP 5 Cardiology Labs/Tests 11/22/23 09:13: pH 7.39, Bicarbonate Actual 20.1 L, Base Excess -5 L, O2 Saturation 88 L, ABG pCO2 32.9 L, ABG pO2 54 L, Jacob Test Positive 11/23/23 03:15: WBC 13.6 H, RBC 3.69 L, Hgb 12.3 L, Hct 36.3 L, MCV 98.4 H, MCH 33.3 H, MCHC 33.9, Plt Count 269, MPV 9.6, Immature Gran % (Auto) 0.400, Neut % (Auto) 75.8 H, Lymph % (Auto) 14.1 L, [place] % (Auto) 8.8, Eos % (Auto) 0.4, Baso % (Auto) 0.5, Absolute Neuts (auto) 10.3 H, Nucleated RBC % 0, Sodium 141, P otassium 3.0 L, Chloride 109 H, Carbon Dioxide 26.0, Anion Gap 6, BUN 16, C reatinine 1.56 H, Est GFR (MDRD) Af Amer 57 L, Est GFR (MDRD) Non-Af 47 L, BUN/Creatinine Ratio 10.3, Glucose 142 H, Calcium 8.0 L Rhythm: EKG: ECHO: Stress Test: Cardiac Cath: PCI: CT Surgery: Holter monitor: EPS: PPM: CXR: Chest CT Scan: Radiography Diagnostic Testing: Radiology Impression Chest X-Ray 11/22/23 11:01 IMPRESSION: Mild peribronchial thickening right lower lobe. Electronically Signed: Edmund Sellers MD at 11:33 EDT , Chest X-Ray 11/23/23 05:55 IMPRESSION: Minimal right basilar atelectasis or infiltrate. Electronically Signed: Geri José MD at 5:22 EDT , Physical Exam Narrative Comfortable. Sitting up in bed. Heart sounds 1 and 2 noted. Chest clear to auscultation bilaterally. No ankle edema. Assessment & Plan Assessment/Plan (1) Cardiopulmonary arrest with successful resuscitation: PLAN: Secondary to acute coronary syndrome. See #2 below. (2) STEMI (ST elevation myocardial infarction): PLAN: Initial EKGs did not show any ST elevation however subsequent ECG showed acute ST elevation myocardial infarction. Status post emergent angiography with percutaneous intervention to the LAD and left circumflex. Continue aspirin. Continue ticagrelor. (3) Coronary artery disease: PLAN: See #2 above. Status post percutaneous intervention to the LAD and left circumflex. For staged intervention to RCA, preferably before discharge home. (4) Acute systolic CHF (congestive heart failure): PLAN: Severe LV systolic dysfunction noted on echocardiogram. Beta-blockers and BERTHA inhibitors when blood pressure able to tolerate. Started on spironolactone. Continue furosemide. (5) Shock: PLAN: Resolved. Hemodynamically stable. (6) Pneumonia: PLAN: On antibiotics. (7) Renal insufficiency: PLAN: Creatinine mildly up today. Change furosemide to once daily. Monitor.
--- NOTE | 2023-11-23 08:50 | ECQM.STEMI ---
STEMI STEMI ED Door Time / Other REG STEMI EKG Time (1) STEMI (ST elevation myocardial infarction): Acute 11/21/23 13:22 Balloon/Aspiration Date-Time Date of Balloon/Aspiration:: 11/21/23 Time of Balloon/Aspiration:: 14:40
[2023-11-23] MEDS: Furosemide 40 MG/4 ML Vial IV (09:23)
[2023-11-23] MEDS: Potassium Chloride 10mEq/100mL 10 MEQ/100 ML IV.SOLN. 100 MEQ IV BOLUS ×4 (09:23→12:50)
--- NOTE | 2023-11-23 09:49 | CASEMGMT ---
JESSE ONTIVEROS Assessment Face to Face with patient for initial transition planning/care coordination assessment. JESSE ONTIVEROS introduced self and role at [facility], pt voices understanding. Pt is A&Ox4 and is resting comfortably in bed and is calm. Pt family at bedside. Care providers, pharmacy, and demographics verified. Admitting dx: Acute Hypoxic RF LACE Strata: 2 PCP: Angie Fernandes Specialists: Pt states that he sees a senior electrical designer and denies other specialists Preferred Pharmacy: [facility] during this stay Insurance: [facility] Prescription Benefit: Yes LNOK: Catarina Houser (W) Living Arrangements: Pt lives with his in a two story home with a FFSU and a flat entrance ADLs/IADLs: Ind at BL Transportation: Self, DME: Pulse Ox and BP Cuff at home. Pt was extubated this morning and has been weaned down to RA. Pt did not want to select a DME company at this time. CM to follow for potential home oxygen needs. HHC/SNF: Denies history. Pt?s goal: Return to PLOF Plan: TBD. Home vs Home with HHC vs SNF. PT eval is pending. Pt states that he may be interested in SNF or HHC if he qualifies. Pt lives in [place]. CM/SW to follow pt progression in the hospital to see what he best qualifies for moving forward. Ricardo Crowder RN, CM
--- NOTE | 2023-11-23 09:52 | CRPH1.INSTRU ---
General Education Discussed with Patient CAD and cardiac anatomy and function:: Not instructed Explanation of diagnoses and procedures:: Not instructed Sign/Symptoms of [place]:: Not instructed Antiplatelet therapy: Not instructed Proper use of NTG-SL: Not instructed Emergency procedures and activation of EMS: Not instructed Compliance of all prescribed medications: Not instructed (Patient was intubated during PCI case and remains on ventilator, information left.)
--- NOTE | 2023-11-23 09:53 | CRPHASE1_ITS ---
Patient Communication Patient Information PHII Cardiac Rehab Discussed with Patient:: No (information at bedside, patient intubated during PCI and remain on vent.) Guide to Cardiac Rehab Given to Patient:: Yes Cardiac Rehab Facility Choice List Given to Patient:: Yes Cardiac Rehabilitation Info Program Information Cardiac Rehabilitation Program Information: Cardiac Rehab The cardiac rehab team at [facility] consists of highly skilled exercise physiologists, nurses, respiratory therapists and physicians working together with you. Our purpose is to help you have a full recovery and achieve the goals you set for yourself. Over the years many of our patients have returned to activities they assumed they would never do again! We can help restore your confidence and motivation to make lifestyle changes that can have a significant impact on your health and quality of life! We can help answer questions and concerns you may have about exercise, lifestyle, medications, diet, stress and anxiety which are common following a hospitalization. WE monitor ECG and vital signs during exercise and discuss your progress with you and report to your physician(s). Cardiac Rehab is proven to help reduce readmissions, improve functional capacity and lower recurrence of problems with your heart. Our Cardiac Rehab program is Certified by the [place] [employer] Pulmonary [employer] (AACVPR) and Accredited by the [place] [employer] through our [facility]. You can contact us at . We invite you to call us with your questions or to get started in our program. If you have other questions or concerns be sure to ask your physician/provider during your follow-up visit. WE look forward to seeing you!
--- NOTE | 2023-11-23 10:00 | EKG12_ITS ---
Test Reason : AM EKG Blood Pressure : / mmHG Vent. Rate : 063 BPM Atrial Rate : 063 BPM P-R Int : 176 ms QRS Dur : 100 ms QT Int : 536 ms P-R-T Axes : 077 041 083 degrees QTc Int : 548 ms Normal sinus rhythm Nonspecific ST and T wave abnormality Prolonged QT Abnormal ECG When compared with ECG of 21-NOV-2023 13:22, MANUAL COMPARISON REQUIRED, DATA IS UNCONFIRMED Confirmed by EFRAIN PALMER, MARILYN ([id number]), state editor LESLIE BLOOD ([id number]) on 11/24/2023 5:53:53 AM Referred By: Confirmed By:MARILYN ZUNIGA MD
--- NOTE | 2023-11-23 10:22 | PCM.PROGNOTE ---
Subjective Subjective Patient seen and examined. and son were by his bedside. Patient was extubated this morning for swallow exam. He was on room air. He admitted to some sore throat because of the intubation. He denied any chest pain, palpitations, dizziness, nausea vomiting or any other symptoms. Review of systems otherwise negative. Objective Data Objective Data Vital Signs: Vital Signs Temp Pulse Resp BP Pulse Ox O2 Del Method O2 Flow Rate 98.7 F 77 15 174/84 H 93 Room Air 2 11/23/23 04:00 11/23/23 09:00 11/23/23 09:00 11/23/23 09:00 11/23/23 09:00 11/23/23 09:00 11/23/23 08:00 FiO2 40 11/23/23 06:00 Oxygen Flow Rate (L/min) 2 Oxygen Delivery Method Room Air Weight: 179 lb 10.828 oz Body Mass Index (BMI) 24.3 Intake & Output: Intake and Output for Last 24 Hours 11/21/23 11/22/23 11/23/23 23:59 23:59 23:59 Intake Total 5249.71 / 5322.61 2908.11 / 2993.41 688.94 / 688.94 Output Total 2550 / 2550 2925 / 2925 1300 / 1300 Balance 2699.71 / 2772.61 -16.89 / 68.41 -611.06 / -611.06 Lab / Micro Data 11/23/23 03:15 11/23/23 03:15 Labs: Laboratory Results - last 24 hr 11/23/23 03:15: WBC 13.6 H, RBC 3.69 L, Hgb 12.3 L, Hct 36.3 L, MCV 98.4 H, MCH 33.3 H, MCHC 33.9, RDW Std Deviation 47.9 H, RDW Coeff of Sina 13.3, Plt Count 269, MPV 9.6, Immature Gran % (Auto) 0.400, Neut % (Auto) 75.8 H, Lymph % (Auto) 14.1 L, Campbell % (Auto) 8.8, Eos % (Auto) 0.4, Baso % (Auto) 0.5, Absolute Neuts (auto) 10.3 H, Absolute Lymphs (auto) 1.92, Nucleated RBC % 0, Sodium 141, Potassium 3.0 L, Chloride 109 H, Carbon Dioxide 26.0, Anion Gap 6, BUN 16, Creatinine 1.56 H, Estim Creat Clear Calc 48.36, Est GFR (MDRD) Af Amer 57 L, Est GFR (MDRD) Non-Af 47 L, BUN/Creatinine Ratio 10.3, Glucose 142 H, Calcium 8.0 L, Vancomycin Trough 15.2 H Micro: Microbiology 11/21/23 07:30 Urine Catheter - Jones Urine Culture - Preliminary Culture exhibits no growth. 11/21/23 07:30 Urine Catheter - Jones Legionella Antigen - Final 11/21/23 07:30 Urine Catheter - Jones Streptococcus pneumoniae Antigen (M - Final 11/21/23 08:50 Sputum, Induced/Lukens Gram Stain - Final 11/21/23 08:50 Sputum, Induced/Lukens Respiratory Culture - Preliminary Appears to be normal respiratory deloris. Further studies to follow. 11/21/23 10:33 Mucosa - Nasopharyngeal Coronavirus COVID-19 PCR - Final Radiography Diagnostic Testing: Radiology Impression Chest X-Ray 11/22/23 11:01 IMPRESSION: Mild peribronchial thickening right lower lobe. Electronically Signed: Edmund Sellers MD at 11:33 EDT , Chest X-Ray 11/23/23 05:55 IMPRESSION: Minimal right basilar atelectasis or infiltrate. Electronically Signed: Geri José MD at 5:22 EDT , Renal Ultrasound 11/23/23 05:55 IMPRESSION: Normal ultrasound of the kidneys. Electronically Signed: Dax Olivares MD at 9:28 EDT , Physical Exam Const alert, oriented x3 and no apparent distress Constitutional Narrative: frail HEENT normocephalic, head/scalp atraumatic, moist oral mucous membranes and oropharynx normal Eyes PERRL and EOMs intact bilaterally Neck no lymphadenopathy and supple Lymph Lymphatic: no lymphadenopathy noted and no lymphedema noted Resp Resp Narrative: mildly diminished breath sounds bibasally, no wheezes or crackles. on room air. Cardio regular rate, regular rhythm, S1 normal heart sound, S2 normal heart sound and no murmurs GI normal to inspection, nondistended, normoactive bowel sounds, soft to palpation, non-tender and non-distended Extremity normal capillary refill, no clubbing, cyanosis or edema and no calf tenderness General Extremity: no tenderness to palpation of joints or extremities Skin General Skin Exam: no breakdown and turgor normal Neuro CN's II-XII intact bilaterally, no focal motor deficits and no sensory deficits noted Motor Exam: strength 5/5 throughout Psych thought process normal and cooperative Psych Narrative: had episodic forgetfulness during review. Appearance: appropriate Assessment & Plan Assessment/Plan (1) Stented coronary artery: (2) Acute systolic CHF (congestive heart failure): (3) Coronary artery disease: (4) STEMI (ST elevation myocardial infarction): (5) Cardiopulmonary arrest with successful resuscitation: PLAN: Plan #Acute cardiopulmonary arrest due to acute STEMI Patient was admitted in cardiopulmonary arrest and had high-quality ACLS with ROSC. Was emergently intubated. Initial troponin was negative but subsequently trended upwards and subsequent EKG showed ST elevation [place]. Cardiology on board. He had cardiac cath with PCI and angiography to the LAD and left circumflex arteries. Was extubated this morning. On aspirin and Brilinta as well as high intensity statin. 2D echo showed severe left ventricular systolic dysfunction, with EF of 25-30% and stage 1 diastolic dysfunction. On Lasix. on lisinopril and metoprolol as well as spironolactoone Cardiology and critical care on board. #Acute hypoxic respiratory failure due to acute cardiopulmonary arrest from STEMI and heart failure Was extubated this morning and is now on room air. Breathing treatment and bronchodilators. Placed on beta-keisha and BERTHA inhibitor as well as spironolactone. Already on Lasix for heart failure. #Nonsustained VT: Most likely due to STEMI. # Now resolved. Echo as above. #Hypertension Blood pressure is up at 174/84 today. on PO lisinopril, metoprolol and spironolactone. #Hypokalemia: Potassium is 3 today. Will replace and trend. #Probable aspiration pneumonia: On broad-spectrum antibiotics. Now extubated and on room air. Breathing treatments bronchodilators. #ALBIN: Creatinine is 1.56 today. Was 1.3 yesterday and 1.81 on the day of admission. Being diuresed with Lasix which may also be contributing. Lasix got down to daily dose. Will trend creatinine. #Hyponatremia: Resolved. Sodium is 141. #History of alcohol use disorder Patient's says he smokes at least 8 beers daily. Patient's admits to this. He also smokes heavily. Today is day 3 since admission. Family is worried about possible withdrawal. Will start patient on alcohol withdrawal protocol preclude any withdrawal symptoms. start on thiamine, folic acid and multivites. #Nicotine dependence: counseled to quit. Nicotine patch 21mg daily. DVT prophylaxis: lovenox Charges/Coding Visit Charges Inpatient E&M: 04493 Subs Hosp L3
[2023-11-23] MEDS: Enoxaparin 40 MG/0.4 ML Syringe SC (10:38)
[2023-11-23] MEDS: Spironolactone 25 MG Tablet 12.5 MG PO (10:38)
[2023-11-23] MEDS: Aspirin 81 MG TAB.CHEW PO (10:38)
[2023-11-23] MEDS: TICAGRELOR 90 MG TABLET PO ×2 (10:40→20:14)
[2023-11-23] MEDS: Lisinopril 2.5 MG Tablet PO (10:40)
[2023-11-23] MEDS: Metoprolol Tartrate 25 MG Tablet 12.5 MG PO ×2 (10:41→20:13)
[2023-11-23] MEDS: Acetaminophen 325 MG Tablet 650 MG PO ×2 (10:44→16:01)
[2023-11-23] MEDS: LORazepam 1 MG Tablet 2 MG PO ×3 (12:53→20:13)
--- NOTE | 2023-11-23 13:50 | CHAPLAIN ---
Type of Pastoral Visit _x__ Initial Visit ___ Follow-up Visit ___ On-call Visit ___ General Patient Visit ___ Spiritual Assessment ___ Family Conference ___ Bereavement ___ Rapid Response ___ Code Blue ___ Other (describe below) Pastoral Care Referral From _x__ Patient _x__ Family ___ Nurse ___ Physician ___ Director Of Clinical Applications ___ Underlay Stitcher ___ Other (describe below) Sacrament/Intervention _x__ Active listening ___ Anointing ___ Islam ___ Bereavement ___ Communion ___ [place]quita exploration ___ ___ Life review ___ Prayer ___ Reconciliation ___ Sacrament of Sick _x__ Supportive presence ___ Wedding ___ Other (describe below) Pastoral Comments patient and several family members are in the room; more family members are in the waiting room; pt welcomes offer of support but states that he is doing much better now; family members say that they are grateful for pt's good outcome and are here to support him; no other needs or concerns at this time; offer of future support as needed is given to family
[2023-11-23] MEDS: Pantoprazole Sodium 20 MG Tablet PO (16:40)
[2023-11-23] MEDS: 0.9% Saline Lock 10 ML Syringe IV (20:14)
[2023-11-23] MEDS: Atorvastatin Calcium 80 MG Tablet PO (20:14)
[2023-11-24] VITALS (19 sets, daily range): BP systolic 140–174; BP diastolic 75–97; PULSE 71–85; RESP 16–28; TEMP 36.4–37.2; O2SAT 91–97; BMI 24.0
[2023-11-24] MEDS: LORazepam 1 MG Tablet 2 MG PO ×2 (01:06→05:11)
[2023-11-24] MEDS: Piperacil/Tazobactam 3.375 GM in 0.9% Normal Saline (50mL MB+) 50 ML IV ×3 (05:11→22:00)
[2023-11-24 05:53] LABS: Absolute Lymphocyte Count 1.77 X10^3/uL (0.83-4.51); Absolute Neutrophil Count 10.2 X10^3/uL (2.0-7.7); Basophil# 0.04 X10^3/uL; Basophil% 0.3 % (0-1); Eosinophil# 0.13 X10^3/uL; Hematocrit 37.5 % (40-54); Hemoglobin 12.7 g/dL (13.0-16.5); Lymphocyte # 1.77 X10^3/ul (0.83-4.51); Lymphocyte % 13.4 % (19-41); Mean Corp Hgb Conc 33.9 g/dL (32-36); Mean Corpuscular Hgb 33.5 pg (27.0-32.0); Mean Corpuscular Volume 98.9 fL (80-94); Mean Platelet Vol. 9.7 fl (6.2-12.0); Monocyte# 0.99 X10^3/uL; Monocyte% 7.5 % (0-10); NRBC Flagged by Analyzer 0 % (0-5); Neutrophil # 10.17 X10^3/uL (2.7-7.7); Neutrophil % 77.2 % (47-70); Platelet Count 260 K/mm3 (150-450); RBC Distribution Width CV 13.2 % (11.6-14.6); RBC Distribution Width SD 47.8 fl (35.1-43.9); Red Blood Count 3.79 M/mm3 (4.6-6.2); White Blood Count 13.2 K/mm3 (4.4-11.0)
[2023-11-24 06:33] LABS: Anion Gap 6 (5-15); BUN 13 mg/dL (7-18); BUN/Creat Ratio 9.5 RATIO (10-20); Calcium,Total 8.9 mg/dL (8.5-10.1); Chloride 104 mmol/L (98-107); Creatinine, Serum 1.37 mg/dL (0.70-1.30); EST Glomerular Filtration Rate 55 mL/min (>60); Est Glom Filt Rate - Afr Amer 66 mL/min (>60); Estimated Creatinine Clearance 55.07 ml/min; Glucose 130 mg/dL (74-106); Potassium 3.3 mmol/L (3.5-5.1); Sodium Level 135 mmol/L (136-145)
--- NOTE | 2023-11-24 06:52 | PCM.PN.INT ---
Assessment & Plan Assessment/Plan (1) STEMI (ST elevation myocardial infarction): (2) Pneumonia: (3) Cardiopulmonary arrest with successful resuscitation: PLAN: Plan RECOMMENDATIONS: 1. Continue Zosyn to complete 7 days of therapy. 2. Remainder of goal-directed medical therapy per cardiology recommendations. 3. Encourage incentive spirometer use and mobilize patient as tolerated. 4. Continue appropriate DVT prophylaxis. 5. The patient is medically stable for transfer out of the intensive care unit. Will sign off from a critical care perspective. IMPRESSIONS: 1. STEMI/cardiopulmonary arrest with ROSC The patient underwent emergent angiography with percutaneous intervention performed to the LAD and left circumflex. Continue goal-directed medical therapy per cardiology recommendations. 2. Acute hypoxemic respiratory failure Resolved. Clinical concern for underlying aspiration pneumonia in the setting of #1. The patient remains on appropriate antimicrobial therapy, which I would recommend be continued to complete 7 days of therapy. He has otherwise improved from a respiratory perspective on room air. Encourage incentive spirometer use and mobilize patient as tolerated. 3. Acute kidney injury Most likely prerenal in etiology. Continue to monitor urine output for now. No current indication for renal replacement therapy. Renal ultrasound was unremarkable. This note was generated with [employer] dictation software. It may contain incorrect words, spelling, and punctuation that were not noted in checking the note before signing. Subjective Subjective The patient was seen and examined at the bedside this morning. Events from the last 24 hours have been reviewed. The patient is currently afebrile, hemodynamically stable and maintaining appropriate oxygen saturations on room air. Over concerns for possible alcohol withdrawal, the patient was placed on an Ativan taper yesterday. Potassium is low this morning at 3.3 with a creatinine of 1.37. Objective Data Objective Data The patient's most recent lab work, culture data and imaging studies have all been personally reviewed. Surface echocardiogram demonstrated mild concentric LVH with severe hypokinesis and an ejection fraction of 25 to 30%. Stage I diastolic dysfunction was noted. Sputum culture dated November 20 was positive for 3+ haemophilus influenza. Vital Signs: Vital Signs Temp Pulse Resp BP Pulse Ox O2 Del Method O2 Flow Rate 99 F 71 23 H 157/83 H 92 Room Air 2 11/24/23 04:00 11/24/23 06:00 11/24/23 06:00 11/24/23 06:00 11/24/23 06:00 11/24/23 06:00 11/23/23 20:00 FiO2 40 11/23/23 06:00 Oxygen Flow Rate (L/min) 2 Oxygen Delivery Method Room Air Weight: 177 lb 0.499 oz Body Mass Index (BMI) 24.0 Intake & Output: Intake and Output for Last 24 Hours 11/22/23 11/23/23 11/24/23 23:59 23:59 23:59 Intake Total 2908.11 / 2993.41 1518.94 / 1518.94 170 / 170 Output Total 2925 / 2925 1999 / 2350 600 / 600 Balance -16.89 / 68.41 -481.06 / -831.06 -430 / -430 Lab / Micro Data Attestation: I reviewed the patient's lab results. 11/24/23 05:30 11/24/23 05:30 Labs: Laboratory Results - last 24 hr 11/24/23 05:30: WBC 13.2 H, RBC 3.79 L, Hgb 12.7 L, Hct 37.5 L, MCV 98.9 H, MCH 33.5 H, MCHC 33.9, RDW Std Deviation 47.8 H, RDW Coeff of Sina 13.2, Plt Count 260, MPV 9.7, Immature Gran % (Auto) 0.600, Neut % (Auto) 77.2 H, Lymph % (Auto) 13.4 L, Zapata % (Auto) 7.5, Eos % (Auto) 1.0, Baso % (Auto) 0.3, Absolute Neuts (auto) 10.2 H, Absolute Lymphs (auto) 1.77, Nucleated RBC % 0, Sodium 135 L, Potassium 3.3 L, Chloride 104, Carbon Dioxide 25.0, Anion Gap 6, BUN 13, Creatinine 1.37 H, Estim Creat Clear Calc 55.07, Est GFR (MDRD) Af Amer 66, Est GFR (MDRD) Non-Af 55 L, BUN/Creatinine Ratio 9.5 L, Glucose 130 H, Calcium 8.9 Micro: Microbiology 11/21/23 08:50 Sputum, Induced/Lukens Gram Stain - Final 11/21/23 08:50 Sputum, Induced/Lukens Respiratory Culture - Final Haemophilus influenzae 11/21/23 10:30 Blood Culture (Wb) - Anticubital Left Blood Culture - Preliminary No growth in 48 hours. 11/21/23 10:10 Blood Culture (Wb) - Anticubital Right Blood Culture - Preliminary No growth in 48 hours. 11/21/23 07:30 Urine Catheter - Jones Urine Culture - Final Culture exhibits no growth. 11/21/23 07:30 Urine Catheter - Jones Legionella Antigen - Final 11/21/23 07:30 Urine Catheter - Jones Streptococcus pneumoniae Antigen (M - Final 11/21/23 10:33 Mucosa - Nasopharyngeal Coronavirus COVID-19 PCR - Final ABG Data ABG results: ABG 11/22/23 09:13 Specimen Type ART Sample Site L Radial pH 7.39 Bicarbonate Actual 20.1 L Total CO2 21 Base Excess -5 L O2 Saturation 88 L O2 % 30.0 ABG pCO2 32.9 L ABG pO2 54 L Jacob Test Positive Respiration Rate 16 O2 Delivery Device Adult Vent Vent Mode AC Tidal Volume 500.0 POC PEEP 5 Radiography Diagnostic Testing: Radiology Impression Renal Ultrasound 11/23/23 05:55 IMPRESSION: Normal ultrasound of the kidneys. Electronically Signed: Dax Olivares MD at 9:28 EDT , Physical Exam Const alert and no apparent distress General Appearance: cooperative HEENT normocephalic and head/scalp atraumatic Eyes PERRL, EOMs intact bilaterally and conjunctivae normal Neck supple General: trachea midline Chest inspection of chest normal Resp normal respiratory effort Auscultation: Negative for rales, rhonchi or wheezes Cardio regular rate and regular rhythm GI normal to inspection, nondistended, normoactive bowel sounds Extremity no clubbing, cyanosis or edema Skin no rashes or lesions noted Neuro CN's II-XII intact bilaterally and no focal motor deficits Psych cooperative Charges/Coding Visit Charges Inpatient E&M: 38934 Subs Hosp L3
[2023-11-24] MEDS: Thiamine Hydrochloride 100 MG Tablet PO (09:44)
[2023-11-24] MEDS: TICAGRELOR 90 MG TABLET PO ×2 (09:44→22:05)
[2023-11-24] MEDS: Aspirin 81 MG TAB.CHEW PO (09:44)
[2023-11-24] MEDS: Folic Acid 1 MG Tablet PO (09:44)
[2023-11-24] MEDS: Empagliflozin 10 MG Tablet PO (09:45)
[2023-11-24] MEDS: Spironolactone 25 MG Tablet 12.5 MG PO (09:45)
[2023-11-24] MEDS: Furosemide 40 MG/4 ML Vial IV (09:46)
[2023-11-24] MEDS: Finasteride 5 MG Tablet 1.25 MG PO (09:47)
[2023-11-24] MEDS: Enoxaparin 40 MG/0.4 ML Syringe SC (09:47)
[2023-11-24] MEDS: Pantoprazole Sodium 20 MG Tablet PO (09:47)
[2023-11-24] MEDS: Lisinopril 5 MG Tablet PO (09:47)
[2023-11-24] MEDS: CHLORHEXIDINE GLUC 2% CLOTH 1 EACH TOWELETTE TOPICAL (09:48)
[2023-11-24] MEDS: Metoprolol Tartrate 25 MG Tablet PO ×2 (09:48→22:04)
[2023-11-24] MEDS: Potassium Chloride Oral Tablet 20 MEQ 40 MEQ PO (09:52)
--- NOTE | 2023-11-24 10:00 | EKG12_ITS ---
Test Reason : POST CATH Blood Pressure : / mmHG Vent. Rate : 072 BPM Atrial Rate : 072 BPM P-R Int : 174 ms QRS Dur : 104 ms QT Int : 420 ms P-R-T Axes : 066 029 063 degrees QTc Int : 459 ms Normal sinus rhythm Normal ECG When compared with ECG of 23-NOV-2023 06:05, MANUAL COMPARISON REQUIRED, DATA IS UNCONFIRMED Confirmed by Ion Bryant ([id number]), script editor LESLIE BLOOD ([id number]) on 11/24/2023 9:12:48 AM Referred By: Confirmed By:Ion Bryant
--- NOTE | 2023-11-24 10:31 | PN_ITS ---
Subjective Subjective Patient seen and examined. He was a bit more confused today and did appear but lethargic. However he was able to tell me his name and where he was as well as a state of breath. He does admit to occasional cough denies any chest pain, palpitations, dizziness, nausea or vomiting. Review of symptoms otherwise negative. Blood pressure is elevated today blood pressure at time of pressure being 170/77. Potassium is 3.3. Objective Data Objective Data Vital Signs: Vital Signs Temp Pulse Resp BP Pulse Ox O2 Del Method O2 Flow Rate 97.5 F L 83 27 H 170/77 H 95 Room Air 2 11/24/23 10:11 11/24/23 10:11 11/24/23 10:11 11/24/23 10:11/24/23 10:11/24/23 10:11/23/23 20:00 FiO2 40 11/23/23 06:00 Oxygen Flow Rate (L/min) 2 Oxygen Delivery Method Room Air Weight: 177 lb 0.499 oz Body Mass Index (BMI) 24.0 Intake & Output: Intake and Output for Last 24 Hours 11/22/23 11/23/23 11/24/23 23:59 23:59 23:59 Intake Total 2908.11 / 2993.41 1518.94 / 1518.94 220 / 220 Output Total 2925 / 2925 2000 / 2350 600 / 600 Balance -16.89 / 68.41 -481.06 / -831.06 -380 / -380 Lab / Micro Data 11/24/23 05:30 11/24/23 05:30 Labs: Laboratory Results - last 24 hr 11/24/23 05:30: WBC 13.2 H, RBC 3.79 L, Hgb 12.7 L, Hct 37.5 L, MCV 98.9 H, MCH 33.5 H, MCHC 33.9, RDW Std Deviation 47.8 H, RDW Coeff of Sina 13.2, Plt Count 260, MPV 9.7, Immature Gran % (Auto) 0.600, Neut % (Auto) 77.2 H, Lymph % (Auto) 13.4 L, Alcorn % (Auto) 7.5, Eos % (Auto) 1.0, Baso % (Auto) 0.3, Absolute Neuts (auto) 10.2 H, Absolute Lymphs (auto) 1.77, Nucleated RBC % 0, Sodium 135 L, P otassium 3.3 L, Chloride 104, Carbon Dioxide 25.0, Anion Gap 6, BUN 13, C reatinine 1.37 H, Estim Creat Clear Calc 55.07, Est GFR (MDRD) Af Amer 66, Est GFR (MDRD) Non-Af 55 L, BUN/Creatinine Ratio 9.5 L, Glucose 130 H, Calcium 8.9 Micro: Microbiology 11/21/23 08:50 Sputum, Induced/Lukens Gram Stain - Final 11/21/23 08:50 Sputum, Induced/Lukens Respiratory Culture - Final Haemophilus influenzae 11/21/23 10:30 Blood Culture (Wb) - Anticubital Left Blood Culture - Preliminary No growth in 48 hours. 11/21/23 10:10 Blood Culture (Wb) - Anticubital Right Blood Culture - Preliminary No growth in 48 hours. 11/21/23 07:30 Urine Catheter - Jones Urine Culture - Final Culture exhibits no growth. 11/21/23 07:30 Urine Catheter - Jones Legionella Antigen - Final 11/21/23 07:30 Urine Catheter - Jones Streptococcus pneumoniae Antigen (M - Final 11/21/23 10:33 Mucosa - Nasopharyngeal Coronavirus COVID-19 PCR - Final Physical Exam Const alert and oriented x3 Constitutional Narrative: frail Orientation / Consciousness: confused HEENT normocephalic, head/scalp atraumatic, moist oral mucous membranes and oropharynx normal Eyes PERRL and EOMs intact bilaterally Neck no lymphadenopathy and supple Lymph Lymphatic: no lymphadenopathy noted and no lymphedema noted Resp Resp Narrative: mildly diminished breath sounds bibasally, no wheezes or crackles. on room air. Cardio regular rate, regular rhythm, S1 normal heart sound, S2 normal heart sound and no murmurs GI normal to inspection, nondistended, normoactive bowel sounds, soft to palpation, non-tender and non-distended Extremity normal capillary refill, no clubbing, cyanosis or edema and no calf tenderness General Extremity: no tenderness to palpation of joints or extremities Skin General Skin Exam: no breakdown and turgor normal Neuro CN's II-XII intact bilaterally, no focal motor deficits and no sensory deficits noted Motor Exam: strength 5/5 throughout Psych Psych Narrative: episodic confusion, lethargic Activity / Motor Behavior: restless Assessment & Plan Assessment/Plan (1) Stented coronary artery: (2) Acute systolic CHF (congestive heart failure): (3) Coronary artery disease: (4) STEMI (ST elevation myocardial infarction): (5) Cardiopulmonary arrest with successful resuscitation: PLAN: Plan #Acute cardiopulmonary arrest due to acute STEMI * Patient was admitted in cardiopulmonary arrest and had high-quality ACLS with ROSC. Was emergently intubated. * Initial troponin was negative but subsequently trended upwards and subsequent EKG showed ST elevation [place]. Cardiology on board. He had cardiac cath with PCI and angiography to the LAD and left circumflex arteries. * Was extubated this morning. On aspirin and Brilinta as well as high intensity statin. * 2D echo showed severe left ventricular systolic dysfunction, with EF of 25-30% and stage 1 diastolic dysfunction. * On Lasix. on lisinopril and metoprolol as well as spironolactoone * Cardiology and critical care on board. * #Acute hypoxic respiratory failure due to acute cardiopulmonary arrest from STEMI and heart failure * was extubated yesterday morning, and now on rom air. * Breathing treatment and bronchodilators. Placed on beta-keisha and BERTHA inhibitor as well as spironolactone. * Already on Lasix for heart failure. #Nonsustained VT: Most likely due to STEMI. # Now resolved. Echo as above. #Hypertension * BP remains elevated. On PO lisinopril, metoprolol and spironolactone. Will adjust doses of lisinopril and metoprolol. * #Hypokalemia: Potassium is 3.3 today. Will replace and trend. #Probable aspiration pneumonia: * On broad-spectrum antibiotics-IV zosyn. * Now extubated and on room air. * Breathing treatments bronchodilators. WBC is trending downwards slowly. #ALBIN: Creatinine is down to 1.37 today. on IV lasix 40mg daily Will trend creatinine. #Hyponatremia: Sodium is down to 135 today. Will monitor closely. #History of alcohol use disorder * Patient's says he smokes at least 8 beers daily. Patient's admits to this. He also smokes heavily. * Started on alcohol withdrawal protocol to preclude any withdrawal symptoms. * start on thiamine, folic acid and multivites. * #Nicotine dependence: counseled to quit. Nicotine patch 21mg daily. DVT prophylaxis: lovenox Disposition; transfer out of ICU. Charges/Coding Visit Charges Inpatient E&M: 50722 Subs Hosp L3
--- NOTE | 2023-11-24 13:42 | EKG12_ITS ---
Test Reason : CP Blood Pressure : / mmHG Vent. Rate : 081 BPM Atrial Rate : 081 BPM P-R Int : 154 ms QRS Dur : 096 ms QT Int : 404 ms P-R-T Axes : 018 029 063 degrees QTc Int : 469 ms Normal sinus rhythm Normal ECG When compared with ECG of 24-NOV-2023 05:23, No significant change was found Confirmed by Ion Bryant ([id number]), market editor LESLIE BLOOD ([id number]) on 11/25/2023 9:07:42 AM Referred By: TATIANA Confirmed By:Ion Bryant
[2023-11-24] MEDS: Acetaminophen 325 MG Tablet 650 MG PO ×2 (13:50→23:21)
[2023-11-24] MEDS: Lisinopril 10 MG Tablet PO (15:26)
--- NOTE | 2023-11-24 15:28 | PN.CARD_ITS ---
Subjective Subjective Complains of some chest pain. Worse with deep breathing. Objective Data Vital Signs: Vital Signs Temp Pulse Resp BP Pulse Ox O2 Del Method O2 Flow Rate 97.8 F 80 18 162/87 H 94 Room Air 2 11/24/23 13:43 11/24/23 13:43 11/24/23 13:43 11/24/23 13:43 11/24/23 13:43 11/24/23 13:43 11/23/23 20:00 FiO2 40 11/23/23 06:00 Oxygen Flow Rate (L/min) 2 Oxygen Delivery Method Room Air Weight: 177 lb 0.499 oz Body Mass Index (BMI) 24.0 Intake & Output: Intake and Output for Last 24 Hours 11/22/23 11/23/23 11/24/23 23:59 23:59 23:59 Intake Total 2908.11 / 2993.41 1518.94 / 1518.94 220 / 220 Output Total 2925 / 2925 2000 / 2350 2250 / 2250 Balance -16.89 / 68.41 -481.06 / -831.06 -2029 / -2029 Lab / Micro Data 11/24/23 05:30 11/24/23 05:30 Labs: Laboratory Results - last 24 hr 11/24/23 05:30: WBC 13.2 H, RBC 3.79 L, Hgb 12.7 L, Hct 37.5 L, MCV 98.9 H, MCH 33.5 H, MCHC 33.9, RDW Std Deviation 47.8 H, RDW Coeff of Sina 13.2, Plt Count 260, MPV 9.7, Immature Gran % (Auto) 0.600, Neut % (Auto) 77.2 H, Lymph % (Auto) 13.4 L, [place] % (Auto) 7.5, Eos % (Auto) 1.0, Baso % (Auto) 0.3, Absolute Neuts (auto) 10.2 H, Absolute Lymphs (auto) 1.77, Nucleated RBC % 0, Sodium 135 L, P otassium 3.3 L, Chloride 104, Carbon Dioxide 25.0, Anion Gap 6, BUN 13, C reatinine 1.37 H, Estim Creat Clear Calc 55.07, Est GFR (MDRD) Af Amer 66, Est GFR (MDRD) Non-Af 55 L, BUN/Creatinine Ratio 9.5 L, Glucose 130 H, Calcium 8.9 Micro: Microbiology 11/21/23 08:50 Sputum, Induced/Lukens Gram Stain - Final 11/21/23 08:50 Sputum, Induced/Lukens Respiratory Culture - Final Haemophilus influenzae Cardiology Labs/Tests 11/24/23 05:30: WBC 13.2 H, RBC 3.79 L, Hgb 12.7 L, Hct 37.5 L, MCV 98.9 H, MCH 33.5 H, MCHC 33.9, Plt Count 260, MPV 9.7, Immature Gran % (Auto) 0.600, Neut % (Auto) 77.2 H, Lymph % (Auto) 13.4 L, [place] % (Auto) 7.5, Eos % (Auto) 1.0, Baso % (Auto) 0.3, Absolute Neuts (auto) 10.2 H, Nucleated RBC % 0, Sodium 135 L, P otassium 3.3 L, Chloride 104, Carbon Dioxide 25.0, Anion Gap 6, BUN 13, C reatinine 1.37 H, Est GFR (MDRD) Af Amer 66, Est GFR (MDRD) Non-Af 55 L, B UN/Creatinine Ratio 9.5 L, Glucose 130 H, Calcium 8.9 Rhythm: EKG: ECHO: Stress Test: Cardiac Cath: PCI: CT Surgery: Holter monitor: EPS: PPM: CXR: Chest CT Scan: Physical Exam Narrative Comfortable. Sitting up in bed. Unlabored respirations. Heart rate regular rate and rhythm. No ankle edema. Assessment & Plan Assessment/Plan (1) Cardiopulmonary arrest with successful resuscitation: PLAN: Secondary to acute coronary syndrome. See #2 below. (2) STEMI (ST elevation myocardial infarction): PLAN: Status post percutaneous intervention to the proximal and mid LAD. Status post percutaneous intervention to the mid left circumflex. Continue aspirin. Continue Brilinta. (3) Coronary artery disease: PLAN: See #2 above. Status post percutaneous intervention to the LAD and left circumflex. Will plan on staged intervention to the RCA in couple of days. (4) Acute systolic CHF (congestive heart failure): PLAN: Severe LV systolic dysfunction noted on echocardiogram. Beta-blockers and BERTHA inhibitors when blood pressure able to tolerate. Started on spironolactone. Continue furosemide. Will repeat limited echocardiogram in the morning to reassess LV function. (5) Hypertension: PLAN: Lisinopril increased. Beta-blockers increased. (6) Renal insufficiency: PLAN: Continue to monitor. (7) Shock: PLAN: Resolved. Hemodynamically stable. (8) Pneumonia: PLAN: On antibiotics.
[2023-11-24] MEDS: LORazepam 2 MG/ML Syringe IV ×2 (18:42→21:59)
[2023-11-24] MEDS: 0.9% Saline Lock 10 ML Syringe IV (22:02)
[2023-11-24] MEDS: Atorvastatin Calcium 80 MG Tablet PO (22:06)
[2023-11-24] MEDS: traZODone 100 MG Tablet PO (23:21)
[2023-11-25] VITALS (8 sets, daily range): BP systolic 132–184; BP diastolic 62–81; PULSE 74–96; RESP 16–20; TEMP 36.6–37.1; O2SAT 92–97; BMI 23.3
[2023-11-25] MEDS: Piperacil/Tazobactam 3.375 GM in 0.9% Normal Saline (50mL MB+) 50 ML IV ×3 (04:37→21:57)
[2023-11-25 06:25] LABS: Absolute Lymphocyte Count 1.56 X10^3/uL (0.83-4.51); Absolute Neutrophil Count 7.7 X10^3/uL (2.0-7.7); Basophil# 0.04 X10^3/uL; Basophil% 0.4 % (0-1); Eosinophil# 0.12 X10^3/uL; Eosinophils% 1.1 % (0-5); Hematocrit 39.5 % (40-54); Hemoglobin 13.2 g/dL (13.0-16.5); Lymphocyte # 1.56 X10^3/ul (0.83-4.51); Lymphocyte % 14.4 % (19-41); Mean Corp Hgb Conc 33.4 g/dL (32-36); Mean Corpuscular Hgb 33.1 pg (27.0-32.0); Mean Platelet Vol. 9.8 fl (6.2-12.0); Monocyte# 1.34 X10^3/uL; Monocyte% 12.4 % (0-10); NRBC Flagged by Analyzer 0 % (0-5); Neutrophil # 7.69 X10^3/uL (2.7-7.7); Platelet Count 260 K/mm3 (150-450); RBC Distribution Width CV 12.5 % (11.6-14.6); RBC Distribution Width SD 45.6 fl (35.1-43.9); Red Blood Count 3.99 M/mm3 (4.6-6.2); White Blood Count 10.8 K/mm3 (4.4-11.0)
[2023-11-25 06:43] LABS: Anion Gap 8 (5-15); BUN 13 mg/dL (7-18); Calcium,Total 9.1 mg/dL (8.5-10.1); Chloride 103 mmol/L (98-107); EST Glomerular Filtration Rate 58 mL/min (>60); Est Glom Filt Rate - Afr Amer 70 mL/min (>60); Estimated Creatinine Clearance 58.03 ml/min; Glucose 116 mg/dL (74-106); Potassium 3.5 mmol/L (3.5-5.1); Sodium Level 135 mmol/L (136-145)
--- NOTE | 2023-11-25 09:15 | ECHOLC_ITS ---
Reason For Study: CAD/ASHD, Evaluate LVEF Procedure This was a limited 2D transthoracic echocardiogram. Contrast injection was performed. Exam performed portable in patient room. Left Ventricle Normal LV size. Moderate concentric left ventricular hypertrophy. The left ventricular ejection fraction is 70 %. Right Ventricle Normal right ventricle. Atria The left and right atria are normal. Mitral Valve Normal mitral valve. Tricuspid Valve Normal tricuspid valve. Aortic Valve Trisinus/trileaflet aortic valve. Pulmonic Valve The pulmonic valve is not well visualized. Great Vessels The aortic root is not well visualized. Pericardium/Pleural No pericardial effusion. Medication Diluted definity 1ml given slow IV push to enhance endocardial definition. MMode/2D Measurements & Calculations LVIDd: 3.8 cm IVSd: 1.5 cm LVIDs: 2.0 cm LVPWd: 0.94 cm LVAd ap4: 22.0 cm2 FS: 48.0 % LVLd ap4: 7.3 cm EDV(MOD-sp4): 54.6 ml EDV(sp4-el): 56.2 ml LVAs ap4: 10.1 cm2 LVLs ap4: 5.8 cm ESV(MOD-sp4): 14.5 ml ESV(sp4-el): 14.9 ml EF(MOD-sp4): 73.5 % EF(sp4-el): 73.4 % SV(MOD-sp4): 40.1 ml SV(sp4-el): 41.3 ml ECHO/Echo Limited w/Contrast Interpretation Summary Moderate concentric left ventricular hypertrophy. The left ventricular ejection fraction is 70 %. Ordering Physician: Birgit Rand Performed By: Nasreen Joy, MARTIN, RVT
[2023-11-25] MEDS: hydrOXYzine PAM 25 MG Capsule 50 MG PO (09:16)
[2023-11-25] MEDS: Ensure Plus High Protein 120 ML LIQUID PO ×3 (09:16→16:35)
[2023-11-25] MEDS: Thiamine Hydrochloride 100 MG Tablet PO (09:17)
[2023-11-25] MEDS: Acetaminophen 325 MG Tablet 650 MG PO ×2 (09:17→19:47)
[2023-11-25] MEDS: 0.9% Saline Lock 10 ML Syringe IV (09:17)
[2023-11-25] MEDS: Enoxaparin 40 MG/0.4 ML Syringe SC (09:17)
[2023-11-25] MEDS: Pantoprazole Sodium 20 MG Tablet PO (09:18)
[2023-11-25] MEDS: Spironolactone 25 MG Tablet 12.5 MG PO (09:18)
[2023-11-25] MEDS: TICAGRELOR 90 MG TABLET PO ×2 (09:18→21:57)
[2023-11-25] MEDS: Lisinopril 20 MG Tablet PO (09:18)
[2023-11-25] MEDS: Finasteride 5 MG Tablet 1.25 MG PO (09:18)
[2023-11-25] MEDS: Metoprolol Tartrate 25 MG Tablet PO (09:18)
[2023-11-25] MEDS: Aspirin 81 MG TAB.CHEW PO (09:19)
[2023-11-25] MEDS: Folic Acid 1 MG Tablet PO (09:19)
[2023-11-25] MEDS: Empagliflozin 10 MG Tablet PO (09:19)
[2023-11-25] MEDS: Furosemide 40 MG/4 ML Vial IV (09:19)
--- NOTE | 2023-11-25 09:55 | CASEMGMT ---
Social Work SW spoke w/pt, and daughter in room in regard to discharge plan. Pt did not do as well with therapy yesterday, both RN and family reported that it may have been due to the medication pt was on yesterday(Ativan). SW explained we can see how pt does today. SW spoke w/them about possible SNF at discharge. Family explains pt needs to be fairly independent in order to go home. SW spoke w/them about where pt would want to go should he need rehab, here or in [place] where they live. states would prefer the [place] area. SW explained will provide a SNF list to them in the [place] area should it be needed and will follow up after PT/OT. SW then spoke w/pt about alcohol use. explains pt uses alcohol all day throughout the day, is not confused normally. and daughter say pt is more alert today but is still forgetful, confused at times. Pt did state he would like to cut back, is open to resources. SW explained will look into to resources for them. SW did provide to pt a list from [facility] of detention facilities in network w/insurance, in pt's preferred geographic area and complete w/quality and resource use data. Family asking now for a [place] list. SW will get a [place] list to them. Family stating pt to get a stent tomorrow, so will follow up w/referrals after that. BHAVIK Mccullough
--- NOTE | 2023-11-25 09:55 | CASEMGMT ---
Discharge Planning A list of?SNF providers including quality and resource use data and consistent with the patient's preferred geographic region, medical needs, and insurance network was created in [facility] Guide.? This list was provided to the SW. Julissa Collazo Discharge Planning Asst.
--- NOTE | 2023-11-25 11:07 | PN_ITS ---
Subjective Subjective Patient seen and examined. Patient does remain quite confused. Blood pressure possibly markedly elevated. Patient thought he was at outside hospital but was able to quickly correct himself to see he was in [facility]. He denied any chest pain, palpitations, dizziness, nausea vomiting or any other symptoms. Review of systems otherwise negative. Objective Data Objective Data Vital Signs: Vital Signs Temp Pulse Resp BP Pulse Ox O2 Del Method O2 Flow Rate 97.9 F 80 19 H 184/79 H 95 Room Air 2 11/25/23 08:52 11/25/23 09:18 11/25/23 08:52 11/25/23 09:18 11/25/23 08:52 11/25/23 08:52 11/23/23 20:00 FiO2 40 11/23/23 06:00 Oxygen Flow Rate (L/min) 2 Oxygen Delivery Method Room Air Weight: 172 lb 9.951 oz Body Mass Index (BMI) 23.3 Intake & Output: Intake and Output for Last 24 Hours 11/23/23 11/24/23 11/25/23 23:59 23:59 23:59 Intake Total 1518.94 / 1518.94 270 / 270 280 / 280 Output Total 2000 / 2350 2250 / 2250 400 / 400 Balance -481.06 / -831. -1979 / -120 / -120 Lab / Micro Data 11/25/23 05:59 11/25/23 05:59 Labs: Laboratory Results - last 24 hr 11/25/23 05:59: WBC 10.8, RBC 3.99 L, Hgb 13.2, Hct 39.5 L, MCV 99.0 H, MCH 33.1 H, MCHC 33.4, RDW Std Deviation 45.6 H, RDW Coeff of Sina 12.5, Plt Count 260, MPV 9.8, Immature Gran % (Auto) 0.700, Neut % (Auto) 71.0 H, Lymph % (Auto) 14.4 L, [place] % (Auto) 12.4 H, Eos % (Auto) 1.1, Baso % (Auto) 0.4, Absolute Neuts (auto) 7.7, Absolute Lymphs (auto) 1.56, Nucleated RBC % 0, Sodium 135 L, Potassium 3.5, Chloride 103, Carbon Dioxide 24.0, Anion Gap 8, BUN 13, Creatinine 1.30, Estim Creat Clear Calc 58.03, Est GFR (MDRD) Af Amer 70, Est GFR (MDRD) Non-Af 58 L, BUN/Creatinine Ratio 10.0, Glucose 116 H, Calcium 9.1 Micro: Microbiology 11/21/23 08:50 Sputum, Induced/Lukens Gram Stain - Final 11/21/23 08:50 Sputum, Induced/Lukens Respiratory Culture - Final Haemophilus influenzae 11/21/23 10:30 Blood Culture (Wb) - Anticubital Left Blood Culture - Preliminary No growth in 48 hours. 11/21/23 10:10 Blood Culture (Wb) - Anticubital Right Blood Culture - Preliminary No growth in 48 hours. 11/21/23 07:30 Urine Catheter - Jones Urine Culture - Final Culture exhibits no growth. 11/21/23 07:30 Urine Catheter - Jones Legionella Antigen - Final 11/21/23 07:30 Urine Catheter - Jones Streptococcus pneumoniae Antigen (M - Final 11/21/23 10:33 Mucosa - Nasopharyngeal Coronavirus COVID-19 PCR - Final Physical Exam Const alert, oriented x3 and no apparent distress Constitutional Narrative: frail, has intermittent episodic confusion. Orientation / Consciousness: confused HEENT normocephalic, head/scalp atraumatic, moist oral mucous membranes and oropharynx normal Eyes PERRL and EOMs intact bilaterally Neck no lymphadenopathy and supple Lymph Lymphatic: no lymphadenopathy noted and no lymphedema noted Resp Resp Narrative: mildly diminished breath sounds bibasally, no wheezes or crackles. on room air. Cardio regular rate, regular rhythm, S1 normal heart sound, S2 normal heart sound and no murmurs GI normal to inspection, nondistended, normoactive bowel sounds, soft to palpation, non-tender and non-distended Extremity normal capillary refill, no clubbing, cyanosis or edema and no calf tenderness General Extremity: no tenderness to palpation of joints or extremities Skin General Skin Exam: no breakdown and turgor normal Neuro CN's II-XII intact bilaterally, no focal motor deficits and no sensory deficits noted Motor Exam: strength 5/5 throughout Psych Psych Narrative: episodic confusion, lethargic Activity / Motor Behavior: restless Mood & Affect: flat affect Assessment & Plan Assessment/Plan (1) Stented coronary artery: (2) Acute systolic CHF (congestive heart failure): (3) Coronary artery disease: (4) STEMI (ST elevation myocardial infarction): (5) Cardiopulmonary arrest with successful resuscitation: PLAN: Plan #Acute cardiopulmonary arrest due to acute STEMI * Patient was admitted in cardiopulmonary arrest and had high-quality ACLS with ROSC. Was emergently intubated. * Initial troponin was negative but subsequently trended upwards and subsequent EKG showed ST elevation NE. Cardiology on board. He had cardiac cath with PCI and angiography to the LAD and left circumflex arteries. * Was extubated this morning. On aspirin and Brilinta as well as high intensity statin. * 2D echo showed severe left ventricular systolic dysfunction, with EF of 25-30% and stage 1 diastolic dysfunction. * On Lasix. on lisinopril and metoprolol as well as spironolactoone * Cardiology and critical care on board. * #Acute hypoxic respiratory failure due to acute cardiopulmonary arrest from STEMI and heart failure * was extubated yesterday morning, and now on rom air. * Breathing treatment and bronchodilators. Placed on beta-keisha and BERTHA inhibitor as well as spironolactone. * Already on Lasix for heart failure. #Acute encephalopathy * Patient has continued to have intermittent confusion and lethargy. Blood pressure also remains elevated. * He has a history of chronic alcohol abuse, drinking at least 8 beers daily and also smokes heavily. * Patient was started on alcohol withdrawal protocol with Ativan 2 days ago. Ativan was however changed to as needed because patient was becoming even more lethargic with a tapered Ativan dose. * Blood pressure remains persistently high and this is concerning for withdrawal symptoms though his other vitals remained stable. * Will keep a close eye on patient. He could not be put on phenobarbital because it would decrease the effectiveness of his Brilinta. * Low threshold for transfer back to ICU as he is at risk for DTs. * #Nonsustained VT: Most likely due to STEMI. # Now resolved. Echo as above. #Hypertension * BP remains elevated. On PO lisinopril, metoprolol and spironolactone. Will adjust doses of lisinopril and metoprolol. * #Hypokalemia: Potassium is 3.3 today. Will replace and trend. #Probable aspiration pneumonia: * On broad-spectrum antibiotics-IV zosyn. * Now extubated and on room air. * Breathing treatments bronchodilators. WBC is trending downwards slowly. #ALBIN: resolved. Cr is 1.3. #Hyponatremia: Sodium remains at 135 today. Will monitor closely. #History of alcohol use disorder * Patient's says he drinks at least 8 beers daily. Patient's admits to this. He also smokes heavily. * Started on alcohol withdrawal protocol to preclude any withdrawal symptoms. * start on thiamine, folic acid and multivites. * #Nicotine dependence: counseled to quit. Nicotine patch 21mg daily. DVT prophylaxis: lovenox Disposition: may benefit from short term placement as he remains weak and confused. Charges/Coding Visit Charges Inpatient E&M: 81098 Subs Hosp L2
--- NOTE | 2023-11-25 12:36 | PN.CARD_ITS ---
Subjective Subjective Drowsy but arousable. Denies any complaints. Objective Data Vital Signs: Vital Signs Temp Pulse Resp BP Pulse Ox O2 Del Method O2 Flow Rate 97.9 F 80 19 H 184/79 H 95 Room Air 2 11/25/23 08:52 11/25/23 09:18 11/25/23 08:52 11/25/23 09:18 11/25/23 08:52 11/25/23 09:00 11/23/23 20:00 FiO2 40 11/23/23 06:00 Oxygen Flow Rate (L/min) 2 Oxygen Delivery Method Room Air Weight: 172 lb 9.951 oz Body Mass Index (BMI) 23.3 Intake & Output: Intake and Output for Last 24 Hours 11/23/23 11/24/23 11/25/23 23:59 23:59 23:59 Intake Total 1518.94 / 1518.94 270 / 270 280 / 280 Output Total 1999 / 2350 2250 / 2250 400 / 400 Balance -481.06 / -831. / -120 / -120 Lab / Micro Data 11/25/23 05:59 11/25/23 05:59 Labs: Laboratory Results - last 24 hr 11/25/23 05:59: WBC 10.8, RBC 3.99 L, Hgb 13.2, Hct 39.5 L, MCV 99.0 H, MCH 33.1 H, MCHC 33.4, RDW Std Deviation 45.6 H, RDW Coeff of Sina 12.5, Plt Count 260, MPV 9.8, Immature Gran % (Auto) 0.700, Neut % (Auto) 71.0 H, Lymph % (Auto) 14.4 L, [place] % (Auto) 12.4 H, Eos % (Auto) 1.1, Baso % (Auto) 0.4, Absolute Neuts (auto) 7.7, Absolute Lymphs (auto) 1.56, Nucleated RBC % 0, Sodium 135 L, Potassium 3.5, Chloride 103, Carbon Dioxide 24.0, Anion Gap 8, BUN 13, Creatinine 1.30, Estim Creat Clear Calc 58.03, Est GFR (MDRD) Af Amer 70, Est GFR (MDRD) Non-Af 58 L, BUN/Creatinine Ratio 10.0, Glucose 116 H, Calcium 9.1 Cardiology Labs/Tests 11/25/23 05:59: WBC 10.8, RBC 3.99 L, Hgb 13.2, Hct 39.5 L, MCV 99.0 H, MCH 33.1 H, MCHC 33.4, Plt Count 260, MPV 9.8, Immature Gran % (Auto) 0.700, Neut % (Auto) 71.0 H, Lymph % (Auto) 14.4 L, [place] % (Auto) 12.4 H, Eos % (Auto) 1.1, Baso % (Auto) 0.4, Absolute Neuts (auto) 7.7, Nucleated RBC % 0, Sodium 135 L, Potassium 3.5, Chloride 103, Carbon Dioxide 24.0, Anion Gap 8, BUN 13, Creatinine 1.30, Est GFR (MDRD) Af Amer 70, Est GFR (MDRD) Non-Af 58 L, BUN/Creatinine Ratio 10.0, Glucose 116 H, Calcium 9.1 Rhythm: EKG: ECHO: Stress Test: Cardiac Cath: PCI: CT Surgery: Holter monitor: EPS: PPM: CXR: Chest CT Scan: Physical Exam Narrative Comfortable. No apparent distress. Heart sounds 1 and 2 are normal. Chest clear to auscultation bilaterally. No ankle edema. Assessment & Plan Assessment/Plan (1) Cardiopulmonary arrest with successful resuscitation: PLAN: Secondary to acute coronary syndrome. See #2 below. (2) STEMI (ST elevation myocardial infarction): PLAN: Status post percutaneous intervention to the proximal and mid LAD. Status post percutaneous intervention to the mid left circumflex. Continue aspirin. Continue Brilinta. (3) Coronary artery disease: PLAN: See #2 above. Status post percutaneous intervention to the LAD and left circumflex. For PCI to the RCA tomorrow. (4) Acute systolic CHF (congestive heart failure): PLAN: Severe LV systolic dysfunction noted on echocardiogram. Beta-blockers and BERTHA inhibitors when blood pressure able to tolerate. Started on spironolactone. Continue furosemide. (5) Hypertension: PLAN: Continue lisinopril. Continue beta-blockers. Change from metoprolol to carvedilol. (6) Pneumonia: PLAN: On antibiotics.
[2023-11-25] MEDS: cloNIDine HCl 0.1 MG Tablet PO (13:30)
--- NOTE | 2023-11-25 13:34 | CASEMGMT ---
Social Work Met with patient, and a grandson in room today. Patient in and out of sleep, appearing somewhat confused thinking a diagnostic medical sonographer was a cell phone. Provided a list of [facility] SNFs, as this was requested as well. Patient/family now have lists for both [facility] and the [facility] to consider. Also provided substance use treatment options for the [facility], for patient to consider once physical rehab is addressed. reports patient is to get another stent tomorrow. Encouraged to consider SNF choices and that social work will be following up for choices. Plan: SW following. Anticipate short term SNF. List of choices have been provided. -CARLA Boyle
[2023-11-25] MEDS: Carvedilol 6.25 MG Tablet PO (16:35)
[2023-11-25] MEDS: Atorvastatin Calcium 80 MG Tablet PO (21:57)
[2023-11-25] MEDS: guaiFENesin 1,200 MG Tablet 1200 MG PO (21:59)
[2023-11-26] VITALS (16 sets, daily range): BP systolic 125–153; BP diastolic 67–92; PULSE 67–87; RESP 15–18; TEMP 35.9–36.7; O2SAT 92–99; BMI 23.2
[2023-11-26 05:19] LABS: Absolute Lymphocyte Count 1.62 X10^3/uL (0.83-4.51); Absolute Neutrophil Count 7.3 X10^3/uL (2.0-7.7); Basophil# 0.05 X10^3/uL; Basophil% 0.5 % (0-1); Eosinophil# 0.29 X10^3/uL; Eosinophils% 2.7 % (0-5); Hematocrit 38.5 % (40-54); Lymphocyte # 1.62 X10^3/ul (0.83-4.51); Lymphocyte % 14.9 % (19-41); Mean Corp Hgb Conc 33.8 g/dL (32-36); Mean Corpuscular Hgb 32.9 pg (27.0-32.0); Mean Corpuscular Volume 97.5 fL (80-94); Mean Platelet Vol. 9.6 fl (6.2-12.0); Monocyte# 1.51 X10^3/uL; Monocyte% 13.9 % (0-10); NRBC Flagged by Analyzer 0 % (0-5); Neutrophil # 7.32 X10^3/uL (2.7-7.7); Neutrophil % 67.3 % (47-70); POSITIVE DIFFERENTIAL YES; Platelet Count 271 K/mm3 (150-450); RBC Distribution Width CV 12.3 % (11.6-14.6); RBC Distribution Width SD 44.4 fl (35.1-43.9); Red Blood Count 3.95 M/mm3 (4.6-6.2); White Blood Count 10.9 K/mm3 (4.4-11.0)
[2023-11-26] MEDS: Thiamine Hydrochloride 100 MG Tablet PO (05:31)
[2023-11-26] MEDS: Spironolactone 25 MG Tablet 12.5 MG PO (05:31)
[2023-11-26] MEDS: Folic Acid 1 MG Tablet PO (05:31)
[2023-11-26] MEDS: Aspirin 81 MG TAB.CHEW PO (05:32)
[2023-11-26] MEDS: Carvedilol 6.25 MG Tablet PO (05:32)
[2023-11-26] MEDS: Lisinopril 20 MG Tablet PO (05:32)
[2023-11-26] MEDS: TICAGRELOR 90 MG TABLET PO ×2 (05:32→20:29)
[2023-11-26] MEDS: Piperacil/Tazobactam 3.375 GM in 0.9% Normal Saline (50mL MB+) 50 ML IV ×3 (05:32→22:01)
[2023-11-26 05:39] LABS: Differential Indicated SCAN CRITERIA MET
[2023-11-26 05:40] LABS: Anion Gap 6 (5-15); BUN 20 mg/dL (7-18); BUN/Creat Ratio 13.2 RATIO (10-20); Calcium,Total 9.4 mg/dL (8.5-10.1); Chloride 101 mmol/L (98-107); Creatinine, Serum 1.52 mg/dL (0.70-1.30); EST Glomerular Filtration Rate 48 mL/min (>60); Est Glom Filt Rate - Afr Amer 59 mL/min (>60); Estimated Creatinine Clearance 49.63 ml/min; Glucose 137 mg/dL (74-106); Potassium 3.4 mmol/L (3.5-5.1); Sodium Level 133 mmol/L (136-145)
[2023-11-26 06:08] LABS: Differential Comment SCANNED
[2023-11-26] MEDS: Potassium Chloride Oral Tablet 20 MEQ 40 MEQ PO (08:17)
--- NOTE | 2023-11-26 09:16 | CASEMGMT ---
Discharge Planning VM rec'd from patients with SNF choices. They are as follows; 1) [facility], 2) [facility], 3) [facility]. SW updated. Julissa Collazo DC Planning Asst.
--- NOTE | 2023-11-26 09:25 | PN_ITS ---
Subjective Subjective Patient seen and examined. He was much more alert and communicative this morning. HE had no other complaints. HE is going for a repeat cardiac cath today for staged intervention. He has remained hemodynamically stable. Review of systems is otherwise negative. Objective Data Objective Data Vital Signs: Vital Signs Temp Pulse Resp BP Pulse Ox O2 Del Method O2 Flow Rate 98.1 F 72 18 125/78 H 99 Room Air 2 11/26/23 08:10 11/26/23 08:10 11/26/23 08:10 11/26/23 08:10 11/26/23 08:18 11/26/23 08:18 11/23/23 20:00 FiO2 40 11/23/23 06:00 Oxygen Flow Rate (L/min) 2 Oxygen Delivery Method Room Air Weight: 171 lb 11.841 oz Body Mass Index (BMI) 23.2 Intake & Output: Intake and Output for Last 24 Hours 11/24/23 11/25/23 11/26/23 23:59 23:59 23:59 Intake Total 270 / 270 330 / 330 50 / 50 Output Total 2250 / 2250 1100 / 1100 1100 / 1100 Balance -1980 / -1980 -770 / -770 -1050 / -1050 Lab / Micro Data 11/26/23 05:12 11/26/23 05:12 Labs: Laboratory Results - last 24 hr 11/26/23 05:12: WBC 10.9, RBC 3.95 L, Hgb 13.0, Hct 38.5 L, MCV 97.5 H, MCH 32.9 H, MCHC 33.8, RDW Std Deviation 44.4 H, RDW Coeff of Sina 12.3, Plt Count 271, MPV 9.6, Immature Gran % (Auto) 0.700, Neut % (Auto) 67.3, Lymph % (Auto) 14.9 L , Mcpherson % (Auto) 13.9 H, Eos % (Auto) 2.7, Baso % (Auto) 0.5, Absolute Neuts (auto) 7.3, Absolute Lymphs (auto) 1.62, Nucleated RBC % 0, Differential Comment SCANNED, Sodium 133 L, Potassium 3.4 L, Chloride 101, Carbon Dioxide 26.0, Anion Gap 6, BUN 20 H, Creatinine 1.52 H, Estim Creat Clear Calc 49.63, Est GFR (MDRD) Af Amer 59 L, Est GFR (MDRD) Non-Af 48 L, BUN/Creatinine Ratio 13.2, Glucose 137 H, Calcium 9.4 Micro: Microbiology 11/21/23 08:50 Sputum, Induced/Lukens Gram Stain - Final 11/21/23 08:50 Sputum, Induced/Lukens Respiratory Culture - Final Haemophilus influenzae 11/21/23 10:30 Blood Culture (Wb) - Anticubital Left Blood Culture - Preliminary No growth in 48 hours. 11/21/23 10:10 Blood Culture (Wb) - Anticubital Right Blood Culture - Preliminary No growth in 48 hours. 11/21/23 07:30 Urine Catheter - Jones Urine Culture - Final Culture exhibits no growth. 11/21/23 07:30 Urine Catheter - Jones Legionella Antigen - Final 11/21/23 07:30 Urine Catheter - Jones Streptococcus pneumoniae Antigen (M - Final 11/21/23 10:33 Mucosa - Nasopharyngeal Coronavirus COVID-19 PCR - Final Physical Exam Const alert and no apparent distress Constitutional Narrative: more alert and communicative today. HEENT normocephalic, head/scalp atraumatic, moist oral mucous membranes and oropharynx normal Eyes PERRL and EOMs intact bilaterally Neck no lymphadenopathy and supple Lymph Lymphatic: no lymphadenopathy noted and no lymphedema noted Resp Resp Narrative: mildly diminished breath sounds bibasally, no wheezes or crackles. on room air. Cardio regular rate, regular rhythm, S1 normal heart sound, S2 normal heart sound and no murmurs GI normal to inspection, nondistended, normoactive bowel sounds, soft to palpation, non-tender and non-distended Extremity normal capillary refill, no clubbing, cyanosis or edema and no calf tenderness General Extremity: no tenderness to palpation of joints or extremities Skin General Skin Exam: no breakdown and turgor normal Neuro CN's II-XII intact bilaterally, no focal motor deficits and no sensory deficits noted Motor Exam: strength 5/5 throughout Psych thought process normal and cooperative Appearance: appropriate Mood & Affect: flat affect Assessment & Plan Assessment/Plan (1) Stented coronary artery: (2) Acute systolic CHF (congestive heart failure): (3) Coronary artery disease: (4) STEMI (ST elevation myocardial infarction): (5) Cardiopulmonary arrest with successful resuscitation: PLAN: Plan #Acute cardiopulmonary arrest due to acute STEMI * Patient was admitted in cardiopulmonary arrest and had high-quality ACLS with ROSC. Was emergently intubated. * Initial troponin was negative but subsequently trended upwards and subsequent EKG showed ST elevation MA. Cardiology on board. He had cardiac cath with PCI and angiography to the LAD and left circumflex arteries. * Was extubated this morning. On aspirin and Brilinta as well as high intensity statin. * 2D echo showed severe left ventricular systolic dysfunction, with EF of 25-30% and stage 1 diastolic dysfunction. * On Lasix. on lisinopril and metoprolol as well as spironolactoone * Cardiology and critical care on board. * for repeat cardiac cath today for staged intervention to RCA today * #Acute hypoxic respiratory failure due to acute cardiopulmonary arrest from STEMI and heart failure * was intubated on admission, and now extubated. * Breathing treatment and bronchodilators. Placed on beta-keisha and BERTHA inhibitor as well as spironolactone. * Already on Lasix for heart failure. #Acute encephalopathy * Patient has continued to have intermittent confusion and lethargy. Blood pressure also remains elevated. * He has a history of chronic alcohol abuse, drinking at least 8 beers daily and also smokes heavily. * Patient was started on alcohol withdrawal protocol with Ativan. Ativan was however changed to as needed because patient was becoming even more lethargic with a tapered Ativan dose. * Will keep a close eye on patient. He could not be put on phenobarbital because it would decrease the effectiveness of his Brilinta. * Low threshold for transfer back to ICU as he is at risk for DTs. * mentation has improved significantly today. BP has also improved. * #Nonsustained VT: Most likely due to STEMI. # Now resolved. Echo as above. #Hypertension * BP control has improved. On PO lisinopril, metoprolol and spironolactone. metoprolol increased to 20mg daily * #Hypokalemia: Potassium is 3.4 today. Will replace and trend. #Probable aspiration pneumonia: * On broad-spectrum antibiotics-IV zosyn. * Now extubated and on room air. * Breathing treatments bronchodilators. WBC is trending downwards slowly. #ALBIN: CR is up slightly to 1.52 today. Was 1.3 yesterday. Lisinopril was increased yesterday. Also on Lasix. May need to switch Lasix to p.o. and reduced dose. #Hyponatremia: Sodium is 133 today. Will monitor closely. #History of alcohol use disorder * Patient's says he drinks at least 8 beers daily. Patient's admits to this. He also smokes heavily. * Started on alcohol withdrawal protocol to preclude any withdrawal symptoms. * start on thiamine, folic acid and multivites. * #Nicotine dependence: counseled to quit. Nicotine patch 21mg daily. DVT prophylaxis: lovenox Disposition: will benefit from placement. Case management on board. Charges/Coding Visit Charges Inpatient E&M: 45072 Subs Hosp L2
[2023-11-26] MEDS: Finasteride 5 MG Tablet 1.25 MG PO (10:37)
[2023-11-26] MEDS: Pantoprazole Sodium 20 MG Tablet PO (10:38)
[2023-11-26] MEDS: Empagliflozin 10 MG Tablet PO (10:38)
[2023-11-26] MEDS: guaiFENesin 1,200 MG Tablet 1200 MG PO ×2 (10:38→20:28)
[2023-11-26] MEDS: Furosemide 40 MG/4 ML Vial IV (10:39)
[2023-11-26] MEDS: 0.9% Saline Lock 10 ML Syringe IV (10:43)
[2023-11-26] MEDS: 0.9% Normal Saline (1000mL) 1,000 ML 75 ML IV (12:05)
[2023-11-26] MEDS: Carvedilol 12.5 MG Tablet PO (16:20)
[2023-11-26] MEDS: Ensure Plus High Protein 120 ML LIQUID PO (16:22)
--- NOTE | 2023-11-26 16:53 | CASEMGMT ---
Social Work Referral made to Deann at [facility] transitional care unit. Met with patient, patient's , and patient's son. reports family should be able to bring in advance directives over the weekend. Discharge planning was also discussed. Answered the patient's and the patient's son's questions. Patient does prefer to return home, though is accepting that may need skilled care immediately at discharge. Patient is agreeable to [facility] TCU was first choice, though would prefer to be closer to the [facility] if cannot get into TCU. Patient alert and oriented during conversation today, acknowledged that does not remember of a lot of things up until today. Patient hopeful for any type of rehab to be short-term with the goal of returning home soon as possible. Patient and son asked what would happen if patient does not need rehab before the insurance authorization comes back. Let patient know he can pivot on discharge plan, based on care needs. The patient is asking various questions, though is agreeable to the short-term rehab in a long term facility. Plan: Anticipate short-term skilled stay. Referral pending at [facility] TCU. -BHAVIK Boyle, DRISS *This note was generated with Track[employer]uck dictation software. It may contain incorrect words, spelling, and punctuation that were not noted in review of the chart prior to signing*
[2023-11-26] MEDS: Atorvastatin Calcium 80 MG Tablet PO (20:28)
[2023-11-26] MEDS: Acetaminophen 325 MG Tablet 650 MG PO (20:29)
[2023-11-27 03:15] VITALS: BP 162/83; PULSE 74; RESP 18; TEMP 36.4; O2SAT 95
[2023-11-27 05:04] VITALS: BMI 23.1
[2023-11-27] MEDS: Piperacil/Tazobactam 3.375 GM in 0.9% Normal Saline (50mL MB+) 50 ML IV ×3 (05:16→20:54)
[2023-11-27 05:57] LABS: Absolute Lymphocyte Count 1.44 X10^3/uL (0.83-4.51); Absolute Neutrophil Count 5.9 X10^3/uL (2.0-7.7); Basophil# 0.09 X10^3/uL; Eosinophil# 0.39 X10^3/uL; Eosinophils% 4.2 % (0-5); Hematocrit 37.9 % (40-54); Hemoglobin 12.9 g/dL (13.0-16.5); Lymphocyte # 1.44 X10^3/ul (0.83-4.51); Lymphocyte % 15.4 % (19-41); Mean Corpuscular Hgb 33.4 pg (27.0-32.0); Mean Corpuscular Volume 98.2 fL (80-94); Mean Platelet Vol. 9.9 fl (6.2-12.0); Monocyte# 1.49 X10^3/uL; Monocyte% 15.9 % (0-10); NRBC Flagged by Analyzer 0 % (0-5); Neutrophil # 5.86 X10^3/uL (2.7-7.7); Neutrophil % 62.6 % (47-70); Platelet Count 308 K/mm3 (150-450); RBC Distribution Width CV 12.2 % (11.6-14.6); RBC Distribution Width SD 43.9 fl (35.1-43.9); Red Blood Count 3.86 M/mm3 (4.6-6.2); White Blood Count 9.4 K/mm3 (4.4-11.0)
[2023-11-27 06:46] LABS: ALB/GLOB Ratio 0.6 RATIO (0.9-2.4); AST(SGOT) 53 U/L (15-37); Alanine Aminotransfer ALT/SGPT 55 U/L (16-61); Albumin, Serum 2.7 g/dL (3.2-5.0); Alkaline Phosphatase 77 U/L (45-117); Anion Gap 9 (5-15); BUN 24 mg/dL (7-18); BUN/Creat Ratio 17.8 RATIO (10-20); Calcium,Total 9.4 mg/dL (8.5-10.1); Chloride 102 mmol/L (98-107); Creatinine, Serum 1.35 mg/dL (0.70-1.30); EST Glomerular Filtration Rate 56 mL/min (>60); Est Glom Filt Rate - Afr Amer 67 mL/min (>60); Estimated Creatinine Clearance 55.81 ml/min; Globulin 4.2 g/dL (2.2-4.2); Glucose 149 mg/dL (74-106); Potassium 3.7 mmol/L (3.5-5.1); Protein, Total 6.9 g/dL (6.4-8.2); Sodium Level 135 mmol/L (136-145)
--- NOTE | 2023-11-27 07:34 | CRPHASE1 ---
Patient Communication Patient Information Former Patient:: Phase I PHII Cardiac Rehab Discussed with Patient:: Yes Guide to Cardiac Rehab Given to Patient:: Yes Cardiac Rehab Facility Choice List Given to Patient:: Yes Communication to Cardiac Rehab Choice Program [facility] PHII:: Communication Given to CR and Refer to [facility] Business Applications Developer:: Steve Quarles Refer Phase II Cardiac Rehab:: Yes Medical/Surgical History Medical History FL:: Yes Angina:: Yes CAD:: Yes Congestive Heart Failure: Hypertension:: Yes CVA/TIA: Surgical History PTCA:: Yes Ambulation Ambulation Notes:: walking independently Cardiac Rehabilitation Info Program Information Cardiac Rehabilitation Program Information: Cardiac Rehab The cardiac rehab team at [facility] consists of highly skilled exercise physiologists, nurses, respiratory therapists and physicians working together with you. Our purpose is to help you have a full recovery and achieve the goals you set for yourself. Over the years many of our patients have returned to activities they assumed they would never do again! We can help restore your confidence and motivation to make lifestyle changes that can have a significant impact on your health and quality of life! We can help answer questions and concerns you may have about exercise, lifestyle, medications, diet, stress and anxiety which are common following a hospitalization. WE monitor ECG and vital signs during exercise and discuss your progress with you and report to your physician(s). Cardiac Rehab is proven to help reduce readmissions, improve functional capacity and lower recurrence of problems with your heart. Our Cardiac Rehab program is Certified by the [place] [employer] Pulmonary [employer] (AACVPR) and Accredited by the [place] [employer] through our [facility]. You can contact us at . We invite you to call us with your questions or to get started in our program. If you have other questions or concerns be sure to ask your physician/provider during your follow-up visit. WE look forward to seeing you!
--- NOTE | 2023-11-27 07:36 | CRPH1.INSTRU ---
General Education Discussed with Patient CAD and cardiac anatomy and function:: Patient communicates acknowledgment, Family communicates acknowledgment, Patient returns demonstration, Family returns demonstration and Needs reinforcement Explanation of diagnoses and procedures:: Patient communicates acknowledgment, Family communicates acknowledgment and Family returns demonstration Sign/Symptoms of OH:: Patient communicates acknowledgment, Family communicates acknowledgment, Patient returns demonstration, Family returns demonstration and Needs reinforcement Antiplatelet therapy: Patient communicates acknowledgment, Family communicates acknowledgment, Patient returns demonstration and Family returns demonstration Proper use of NTG-SL: Patient communicates acknowledgment, Family communicates acknowledgment, Patient returns demonstration and Family returns demonstration Emergency procedures and activation of EMS: Patient communicates acknowledgment, Family communicates acknowledgment, Patient returns demonstration and Family returns demonstration Compliance of all prescribed medications: Patient communicates acknowledgment, Family communicates acknowledgment, Patient returns demonstration and Family returns demonstration Smoking Risk Factors Patient Nicotine/Smoking Risk Factors Are:: Cigarettes Recommendations Recommendations Include:: Smoking cessation strategies/Smoking packet Response Code Nicotine/Smoking Response Code:: Patient communicates acknowledgment, Family communicates acknowledgment and Needs reinforcement Dyslipidemia Risk Factors Patient Dyslipidemia Risk Factors Are:: Total Cholesterol and Triglycerides Recommendations Recommendations Include:: Lipid profile provided Response Code Dyslipidemia Response Code:: Patient communicates acknowledgment and Family communicates acknowledgment Overweight/Obesity Risk Factors Patient Overweight/Obesity Risk Factors Are:: BMI Normal [18-25 & < 65 years old] Recommendations Recommendations Include:: Weight loss of 5-10%, Reduced calorie diet and Exercise 5-7 times/week Response Code Overweight/Obesity:: Patient communicates acknowledgment, Family communicates acknowledgment, Patient returns demonstration and Family returns demonstration Hypertension Recommendations Recommendations Include:: Maintain BP <130/85, Decrease/maintain normal body weight and Moderation of ETOH Response Code Hypertension:: Patient communicates acknowledgment, Family communicates acknowledgment, Patient returns demonstration and Family returns demonstration Heart Disease Risk Factors Patient Heart Disease Risk Factors Are:: Family history of heart disease < 65 years old and Previous cardiac event Recommendations Recommendations Include:: Educated family members of their risk and Educated family members of importance of prevention of heart disease Response Code Heart Disease Response Code:: Patient communicates acknowledgment, Family communicates acknowledgment, Patient returns demonstration and Family returns demonstration Diabetes Risk Factors Patient Diabetes Risk Factors Are:: No documented hx of diabetes Metabolic Syndrome Risk Factors Patient Metabolic Syndrome Risk Factors Are [3 of 5]:: Waist circumference > 35 [female] or 40 [male] Recommendations Recommendations Include:: Reinforce compliance to risk factor modifications and Encouraged follow-up with Primary Care Physician Response Code Metabolic Syndrome Response Code:: Patient communicates acknowledgment, Family communicates acknowledgment, Patient returns demonstration and Family returns demonstration Sedentary Recommendations Recommendations Include:: Aerobic exercise 5-7 times/week for 20-30 minutes continuously, Benefits of regular exercise and Monitored Outpatient Cardiac Rehab Response Code Sedentary Response Code:: Patient communicates acknowledgment, Family communicates acknowledgment, Patient returns demonstration and Family returns demonstration Stress Risk Factors Patient Stress Risk Factors Are:: Patient denies stress as a risk factor Recommendations Recommendations Include:: Identification of stressors, and assessment of coping skills Response Code Stress Response Code:: Patient communicates acknowledgment, Family communicates acknowledgment, Patient returns demonstration and Family returns demonstration
[2023-11-27 07:55] VITALS: O2SAT 92
[2023-11-27 09:15] VITALS: BP 139/79; PULSE 72; RESP 18; TEMP 36.5; O2SAT 97
[2023-11-27] MEDS: Pantoprazole Sodium 20 MG Tablet PO (09:55)
[2023-11-27] MEDS: Empagliflozin 10 MG Tablet PO (09:55)
[2023-11-27] MEDS: Ensure Plus High Protein 120 ML LIQUID PO (09:56)
[2023-11-27] MEDS: Aspirin 81 MG TAB.CHEW PO (09:56)
[2023-11-27] MEDS: Carvedilol 12.5 MG Tablet PO ×2 (09:56→16:57)
[2023-11-27] MEDS: Folic Acid 1 MG Tablet PO (09:56)
[2023-11-27] MEDS: Thiamine Hydrochloride 100 MG Tablet PO (09:56)
[2023-11-27] MEDS: TICAGRELOR 90 MG TABLET PO ×2 (09:57→20:50)
[2023-11-27] MEDS: Enoxaparin 40 MG/0.4 ML Syringe SC (09:57)
[2023-11-27] MEDS: Lisinopril 40 MG Tablet PO (09:57)
[2023-11-27] MEDS: guaiFENesin 1,200 MG Tablet 1200 MG PO ×2 (09:57→20:50)
[2023-11-27] MEDS: hydroCHLOROthiazide 25 MG Tablet PO (09:57)
[2023-11-27] MEDS: Finasteride 5 MG Tablet 1.25 MG PO (09:58)
--- NOTE | 2023-11-27 10:00 | EKG12_ITS ---
Test Reason : AM EKG Blood Pressure : / mmHG Vent. Rate : 064 BPM Atrial Rate : 064 BPM P-R Int : 180 ms QRS Dur : 100 ms QT Int : 426 ms P-R-T Axes : 070 037 075 degrees QTc Int : 439 ms Normal sinus rhythm Normal ECG When compared with ECG of 27-NOV-2023 05:22, MANUAL COMPARISON REQUIRED, DATA IS UNCONFIRMED Confirmed by EFRAIN PALMER, MARILYN ([id number]), city editor LESLIE BLOOD ([id number]) on 12/01/2023 9:27:29 AM Referred By: Confirmed By:MARILYN ZUNIGA MD
--- NOTE | 2023-11-27 10:33 | CL.I_ITS ---
Patient Name: HAY CONTRERAS Study Date: 11/26/2023 Performing: Alise Quarles MD Ht: 72 inches 182.88 cm : 1955 Wt: 171.74 lbs 77.9 kg Age: 68 Gender: male BSA: 2 PROCEDURE(S) PERFORMED IC12-(17149/[id number])DARREN W/WO PTCA, SINGLE CORONARY ARTERY CLINICAL PROFILE AND CO-MORBIDITIES Heart Failure: None CAD Presentations: Staged PCI of known RCA disease CONCLUSIONS Successful DARREN to mRCA RECOMMENDATIONS DESCRIPTION OF PROCEDURE The patient arrived to the procedure lab. The risks and benefits of the procedure as well as a full description of our services here and current unavailability of surgical backup were fully explained to the patient and/or their significant other prior to the catheterization. The Timeout was completed, verifying the correct patient and procedure. The patient's procedural site was prepped and draped in the usual fashion. Local anesthetic was given subcutaneously to right radial region with Lidocaine 2%. Using a modified Seldinger technique, arterial access was obtained via the right radial artery, a 6Fr sheath was inserted.. Right Coronary Artery selective angiography was then performed in multiple views using a 6 Fr. JR 4 catheterThe images were reviewed and options discussed. A decision was then made to proceed with an Intervention, IVUS or other adjunct procedure. jr4 Guide catheter was inserted and engaged into the RCA. bmw Guide wire was advanced to the RCA. steph 2.25 x 38 Drug Eluting stent was advanced across the lesion in the right coronary, mid. steph 2.5 x 30 Drug Eluting stent was advanced across the lesion in the right coronary, mid. Angiogram performed post stent deployment. The arterial sheath was pulled and a TR Band was applied for hemostasis INTERVENTION INFORMATION LESION SITE: RCA (Mid) Lesion Complexity: High/C, chronic total occlusion: No, lesion at bifurcation: Yes, thrombus present: No, lesion length: 62 mm, culprit lesion: Yes, Previously treated lesion: No Pre Stenosis: 80 % Pre intervention SAPPHIRE flow: 3 PROCEDURE: Drug Eluting Stent Post Stenosis: 0 % Post intervention SAPPHIRE flow: 3 Lesion Devices: Cordis 6 Fr JR4 100cm Guide Catheter Medtronic 2.25 x 38 STEPH FRONTIER DARREN Medtronic 2.50 x 30 STEPH FRONTIER DARREN Vargas .014 190cm BMW Waterproof Straight COMPLICATIONS No Complications PROCEDURE MEDICATIONS Versed 1 mg IV Fentanyl 50 mcg IV Oxygen: 2 L/min via nasal cannula Heparin 6000 unit(s) IV 11/26/2023 09:52:01 SUMMARY OF HEMODYNAMIC DATA Time AIR REST ECG 09:28:31 ECG 09:28:38 AO 103/66 (85) SA 09:44:20 Signed By Alise Quarles MD On 11/27/2023 10:32:31 Signed By Alise Quarles MD On 11/26/2023 11:20:34 Alise Quarles MD
--- NOTE | 2023-11-27 11:36 | CASEMGMT ---
Social Work Pt accepted in TCU and precert started. SW let pt and know, they are agreeable to TCU when pt medically ready. SW will continue to follow. BHAVIK Mccullough
--- NOTE | 2023-11-27 11:49 | PN_ITS ---
Subjective Subjective Patient seen and examined. He had no complaints. He was much more alert and communicative today. He had a repeat cardiac cath yesterday with insertion of a single stent into the RCA. Objective Data Objective Data Vital Signs: Vital Signs Temp Pulse Resp BP Pulse Ox O2 Del Method O2 Flow Rate 97.7 F L 72 18 139/79 H 97 Room Air 2 11/27/23 09:15 11/27/23 09:15 11/27/23 09:15 11/27/23 09:15 11/27/23 09:15 11/27/23 09:15 11/23/23 20:00 FiO2 40 11/23/23 06:00 Oxygen Flow Rate (L/min) 2 Oxygen Delivery Method Room Air Weight: 170 lb 13.732 oz Body Mass Index (BMI) 23.1 Intake & Output: Intake and Output for Last 24 Hours 11/25/23 11/26/23 11/27/23 23:59 23:59 23:59 Intake Total 330 / 330 510 / 760 350 / 350 Output Total 1100 / 1100 1650 / 1650 Balance -770 / -770 -1140 / -890 350 / 350 Lab / Micro Data 11/27/23 05:13 11/27/23 05:13 Labs: Laboratory Results - last 24 hr 11/27/23 05:13: WBC 9.4, RBC 3.86 L, Hgb 12.9 L, Hct 37.9 L, MCV 98.2 H, MCH 33.4 H, MCHC 34.0, RDW Std Deviation 43.9, RDW Coeff of Sina 12.2, Plt Count 308, MPV 9.9, Immature Gran % (Auto) 0.900, Neut % (Auto) 62.6, Lymph % (Auto) 15.4 L , [place] % (Auto) 15.9 H, Eos % (Auto) 4.2, Baso % (Auto) 1.0, Absolute Neuts (auto) 5.9, Absolute Lymphs (auto) 1.44, Nucleated RBC % 0, Sodium 135 L, Potassium 3.7, Chloride 102, Carbon Dioxide 24.0, Anion Gap 9, BUN 24 H, C reatinine 1.35 H, Estim Creat Clear Calc 55.81, Est GFR (MDRD) Af Amer 67, Est GFR (MDRD) Non-Af 56 L, BUN/Creatinine Ratio 17.8, Glucose 149 H, Calcium 9.4, Total Bilirubin 0.60, AST 53 H, ALT 55, Alkaline Phosphatase 77, Total Protein 6.9, Albumin 2.7 L, Globulin 4.2, Albumin/Globulin Ratio 0.6 L Micro: Microbiology 11/21/23 10:30 Blood Culture (Wb) - Anticubital Left Blood Culture - Final No growth in 5 days. 11/21/23 10:10 Blood Culture (Wb) - Anticubital Right Blood Culture - Final No growth in 5 days. 11/21/23 08:50 Sputum, Induced/Lukens Gram Stain - Final 11/21/23 08:50 Sputum, Induced/Lukens Respiratory Culture - Final Haemophilus influenzae 11/21/23 07:30 Urine Catheter - Jones Urine Culture - Final Culture exhibits no growth. 11/21/23 07:30 Urine Catheter - Jones Legionella Antigen - Final 11/21/23 07:30 Urine Catheter - Jones Streptococcus pneumoniae Antigen (M - Final 11/21/23 10:33 Mucosa - Nasopharyngeal Coronavirus COVID-19 PCR - Final Radiography Diagnostic Testing: Radiology Impression Echocardiogram 11/25/23 09:15 Interpretation Summary Moderate concentric left ventricular hypertrophy. The left ventricular ejection fraction is 70 %. Ordering Physician: Birgit Rand Performed By: Nasreen Joy, MARTIN, RVT Physical Exam Const alert, oriented x3 and no apparent distress General Appearance: cooperative Orientation / Consciousness: confused HEENT normocephalic, head/scalp atraumatic, moist oral mucous membranes and oropharynx normal Eyes PERRL and EOMs intact bilaterally Neck no lymphadenopathy and supple Lymph Lymphatic: no lymphadenopathy noted and no lymphedema noted Resp Resp Narrative: mildly diminished breath sounds bibasally, no wheezes or crackles. on room air. Cardio regular rate, regular rhythm, S1 normal heart sound, S2 normal heart sound and no murmurs GI normal to inspection, nondistended, normoactive bowel sounds, soft to palpation, non-tender and non-distended Extremity normal capillary refill, no clubbing, cyanosis or edema and no calf tenderness General Extremity: no tenderness to palpation of joints or extremities Skin General Skin Exam: no breakdown and turgor normal Neuro CN's II-XII intact bilaterally, no focal motor deficits and no sensory deficits noted Motor Exam: strength 5/5 throughout Psych thought process normal and cooperative Appearance: appropriate Activity / Motor Behavior: restless Assessment & Plan Assessment/Plan (1) Stented coronary artery: (2) Acute systolic CHF (congestive heart failure): (3) Coronary artery disease: (4) STEMI (ST elevation myocardial infarction): (5) Cardiopulmonary arrest with successful resuscitation: PLAN: Plan #Acute cardiopulmonary arrest due to acute STEMI * Patient was admitted in cardiopulmonary arrest and had high-quality ACLS with ROSC. Was emergently intubated. * Initial troponin was negative but subsequently trended upwards and subsequent EKG showed ST elevation [place]. Cardiology on board. He had cardiac cath with PCI and angiography to the LAD and left circumflex arteries. * On aspirin and Brilinta as well as high intensity statin. * 2D echo showed severe left ventricular systolic dysfunction, with EF of 25-30% and stage 1 diastolic dysfunction. * On Lasix. on lisinopril and metoprolol as well as spironolactoone * Cardiology and critical care on board. * Had repeat cardiac cath on 11/26/2023 for staged PCI and insertion of drug- eluting stent to the RCA. * #Acute hypoxic respiratory failure due to acute cardiopulmonary arrest from STEMI and heart failure * was intubated on admission, and now extubated. * Breathing treatment and bronchodilators. Placed on beta-keisha and BERTHA inhibitor as well as spironolactone. * Already on Lasix for heart failure. #Acute encephalopathy * He has a history of chronic alcohol abuse, drinking at least 8 beers daily and also smokes heavily. * Patient was started on alcohol withdrawal protocol with Ativan. Ativan was however changed to as needed because patient was becoming even more lethargic with a tapered Ativan dose. * Will keep a close eye on patient. He could not be put on phenobarbital because it would decrease the effectiveness of his Brilinta. * This has largely resolved. * * #Nonsustained VT: Most likely due to STEMI. # Now resolved. Echo as above. #Hypertension * BP control has improved. On PO lisinopril, carvedilol and spironolactone. * #Hypokalemia: resolved. Potassium is 3.7. #Probable aspiration pneumonia: * On broad-spectrum antibiotics-IV zosyn. Will DC IV Zosyn today. * Now extubated and on room air. * Breathing treatments bronchodilators. WBC is down to 9.4. #ALBIN: Creatinine is down to 1.35 today. Baseline is around 1.3. Will monitor. #Hyponatremia: Sodium is 135 today. Will monitor closely. #History of alcohol use disorder * Patient's says he drinks at least 8 beers daily. Patient's admits to this. He also smokes heavily. * Started on alcohol withdrawal protocol to preclude any withdrawal symptoms. * start on thiamine, folic acid and multivites. * #Nicotine dependence: counseled to quit. Nicotine patch 21mg daily. DVT prophylaxis: lovenox Disposition: awaiting placement. Case management on board. Charges/Coding Visit Charges Inpatient E&M: 32146 Subs Hosp L2
[2023-11-27 15:15] VITALS: BP 133/61; PULSE 70; RESP 18; TEMP 36.6; O2SAT 98
--- NOTE | 2023-11-27 15:54 | CASEMGMT ---
Discharge Planning Patient and his updated that precert has not been obtained yet. Julissa Collazo DC Planning Asst.
[2023-11-27 20:38] VITALS: BP 118/75; PULSE 72; RESP 18; TEMP 36.4; O2SAT 96
[2023-11-27] MEDS: oxyCODONE 5 MG Tablet PO (20:49)
[2023-11-27] MEDS: traZODone 100 MG Tablet PO (20:49)
[2023-11-27] MEDS: Atorvastatin Calcium 80 MG Tablet PO (20:50)
[2023-11-28 03:05] VITALS: BP 126/64; PULSE 69; RESP 16; TEMP 36.6; O2SAT 98
[2023-11-28] MEDS: Piperacil/Tazobactam 3.375 GM in 0.9% Normal Saline (50mL MB+) 50 ML IV (05:46)
--- NOTE | 2023-11-28 06:35 | PCM.HOSP.N ---
Hospitalist Note Notified by nursing staff that patient has a new slight rash on his chest and back. Patient denies any itching or skin discomfort. On chart review, appears that he was started on hydrochlorothiazide yesterday by cardiology and received the first dose yesterday morning. Seems that this may be most likely cause of his rash. Will discontinue hydrochlorothiazide now. Hydroxyzine as needed already ordered, can use this for itching as needed.
[2023-11-28 06:36] LABS: Absolute Lymphocyte Count 1.32 X10^3/uL (0.83-4.51); Absolute Neutrophil Count 7.5 X10^3/uL (2.0-7.7); Basophil# 0.09 X10^3/uL; Basophil% 0.8 % (0-1); Eosinophil# 0.74 X10^3/uL; Eosinophils% 6.7 % (0-5); Hematocrit 36.4 % (40-54); Hemoglobin 12.3 g/dL (13.0-16.5); Lymphocyte # 1.32 X10^3/ul (0.83-4.51); Lymphocyte % 11.9 % (19-41); Mean Corp Hgb Conc 33.8 g/dL (32-36); Mean Corpuscular Volume 97.6 fL (80-94); Monocyte# 1.33 X10^3/uL; NRBC Flagged by Analyzer 0 % (0-5); Neutrophil # 7.52 X10^3/uL (2.7-7.7); Neutrophil % 67.6 % (47-70); Platelet Count 356 K/mm3 (150-450); RBC Distribution Width CV 12.2 % (11.6-14.6); RBC Distribution Width SD 43.8 fl (35.1-43.9); Red Blood Count 3.73 M/mm3 (4.6-6.2); White Blood Count 11.1 K/mm3 (4.4-11.0)
[2023-11-28 07:12] LABS: Anion Gap 11 (5-15); BUN 25 mg/dL (7-18); BUN/Creat Ratio 18.2 RATIO (10-20); Calcium,Total 9.5 mg/dL (8.5-10.1); Chloride 104 mmol/L (98-107); Creatinine, Serum 1.37 mg/dL (0.70-1.30); EST Glomerular Filtration Rate 55 mL/min (>60); Est Glom Filt Rate - Afr Amer 66 mL/min (>60); Glucose 138 mg/dL (74-106); Potassium 3.5 mmol/L (3.5-5.1); Sodium Level 134 mmol/L (136-145)
[2023-11-28 09:00] VITALS: BP 130/66; PULSE 84; RESP 18; TEMP 36.4; O2SAT 96
[2023-11-28] MEDS: Carvedilol 12.5 MG Tablet PO ×2 (09:33→16:49)
[2023-11-28] MEDS: guaiFENesin 1,200 MG Tablet 1200 MG PO ×2 (09:33→21:06)
[2023-11-28] MEDS: Finasteride 5 MG Tablet 1.25 MG PO (09:33)
[2023-11-28] MEDS: TICAGRELOR 90 MG TABLET PO ×2 (09:33→21:06)
[2023-11-28] MEDS: Aspirin 81 MG TAB.CHEW PO (09:34)
[2023-11-28] MEDS: Pantoprazole Sodium 20 MG Tablet PO (09:35)
[2023-11-28] MEDS: Thiamine Hydrochloride 100 MG Tablet PO (09:35)
[2023-11-28] MEDS: Lisinopril 40 MG Tablet PO (09:35)
[2023-11-28] MEDS: Folic Acid 1 MG Tablet PO (09:35)
[2023-11-28] MEDS: Enoxaparin 40 MG/0.4 ML Syringe SC (09:36)
[2023-11-28] MEDS: Ensure Plus High Protein 120 ML LIQUID PO (09:36)
[2023-11-28] MEDS: Empagliflozin 10 MG Tablet PO (09:36)
--- NOTE | 2023-11-28 10:00 | EKG12_ITS ---
Test Reason : AM EKG Blood Pressure : / mmHG Vent. Rate : 069 BPM Atrial Rate : 069 BPM P-R Int : 178 ms QRS Dur : 098 ms QT Int : 418 ms P-R-T Axes : 029 037 076 degrees QTc Int : 447 ms Normal sinus rhythm Normal ECG When compared with ECG of 24-NOV-2023 13:38, No significant change was found Confirmed by EFRAIN PALMER, MARILYN ([id number]), television news video editor LESLIE BLOOD ([id number]) on 12/01/2023 9:28:58 AM Referred By: Confirmed By:MARILYN ZUNIGA MD
--- NOTE | 2023-11-28 10:15 | PN_ITS ---
Subjective Subjective Patient seen and examined. He had no active complaints and had an uneventful night. Review of systems is otherwise negative. He is awaiting placement. He has remained hemodynamically stable. Objective Data Objective Data Vital Signs: Vital Signs Temp Pulse Resp BP Pulse Ox O2 Del Method O2 Flow Rate 97.6 F L 84 18 130/66 H 96 Room Air 2 11/28/23 09:00 11/28/23 09:00 11/28/23 09:00 11/28/23 09:00 11/28/23 09:00 11/28/23 09:00 11/23/23 20:00 FiO2 40 11/23/23 06:00 Oxygen Flow Rate (L/min) 2 Oxygen Delivery Method Room Air Weight: 170 lb 13.732 oz Body Mass Index (BMI) 23.1 Intake & Output: Intake and Output for Last 24 Hours 11/26/23 11/27/23 11/28/23 23:59 23:59 23:59 Intake Total 510 / 760 2120 / 2520 900 / 900 Output Total 1650 / 1650 600 / 600 Balance -1140 / -890 2120 / 2520 300 / 300 Lab / Micro Data 11/28/23 05:46 11/28/23 05:46 Labs: Laboratory Results - last 24 hr 11/28/23 05:46: WBC 11.1 H, RBC 3.73 L, Hgb 12.3 L, Hct 36.4 L, MCV 97.6 H, MCH 33.0 H, MCHC 33.8, RDW Std Deviation 43.8, RDW Coeff of Sina 12.2, Plt Count 356, MPV 10.0, Immature Gran % (Auto) 1.000 H, Neut % (Auto) 67.6, Lymph % (Auto) 11.9 L, [place] % (Auto) 12.0 H, Eos % (Auto) 6.7 H, Baso % (Auto) 0.8, Absolute Neuts (auto) 7.5, Absolute Lymphs (auto) 1.32, Nucleated RBC % 0, Sodium 134 L, Potassium 3.5, Chloride 104, Carbon Dioxide 19.0 L, Anion Gap 11, BUN 25 H, C reatinine 1.37 H, Estim Creat Clear Calc 55.00, Est GFR (MDRD) Af Amer 66, Est GFR (MDRD) Non-Af 55 L, BUN/Creatinine Ratio 18.2, Glucose 138 H, Calcium 9.5 Micro: Microbiology 11/21/23 10:30 Blood Culture (Wb) - Anticubital Left Blood Culture - Final No growth in 5 days. 11/21/23 10:10 Blood Culture (Wb) - Anticubital Right Blood Culture - Final No growth in 5 days. 11/21/23 08:50 Sputum, Induced/Lukens Gram Stain - Final 11/21/23 08:50 Sputum, Induced/Lukens Respiratory Culture - Final Haemophilus influenzae 11/21/23 07:30 Urine Catheter - Jones Urine Culture - Final Culture exhibits no growth. 11/21/23 07:30 Urine Catheter - Jones Legionella Antigen - Final 11/21/23 07:30 Urine Catheter - Jones Streptococcus pneumoniae Antigen (M - Final 11/21/23 10:33 Mucosa - Nasopharyngeal Coronavirus COVID-19 PCR - Final Physical Exam Const alert, oriented x3 and no apparent distress Constitutional Narrative: more alert and communicative today. General Appearance: cooperative Orientation / Consciousness: confused HEENT normocephalic, head/scalp atraumatic, moist oral mucous membranes and oropharynx normal Eyes PERRL and EOMs intact bilaterally Neck no lymphadenopathy and supple Lymph Lymphatic: no lymphadenopathy noted and no lymphedema noted Resp Resp Narrative: mildly diminished breath sounds bibasally, no wheezes or crackles. on room air. Cardio regular rate, regular rhythm, S1 normal heart sound, S2 normal heart sound and no murmurs GI normal to inspection, nondistended, normoactive bowel sounds, soft to palpation, non-tender and non-distended Extremity normal capillary refill, no clubbing, cyanosis or edema and no calf tenderness General Extremity: no tenderness to palpation of joints or extremities Skin General Skin Exam: no breakdown and turgor normal Neuro CN's II-XII intact bilaterally, no focal motor deficits and no sensory deficits noted Motor Exam: strength 5/5 throughout Psych thought process normal and cooperative Appearance: appropriate Activity / Motor Behavior: restless Mood & Affect: flat affect Assessment & Plan Assessment/Plan (1) Stented coronary artery: (2) Acute systolic CHF (congestive heart failure): (3) Coronary artery disease: (4) STEMI (ST elevation myocardial infarction): (5) Cardiopulmonary arrest with successful resuscitation: PLAN: Plan #Acute cardiopulmonary arrest due to acute STEMI * Patient was admitted in cardiopulmonary arrest and had high-quality ACLS with ROSC. Was emergently intubated. * Initial troponin was negative but subsequently trended upwards and subsequent EKG showed ST elevation [place]. Cardiology on board. He had cardiac cath with PCI and angiography to the LAD and left circumflex arteries. * On aspirin and Brilinta as well as high intensity statin. * 2D echo showed severe left ventricular systolic dysfunction, with EF of 25-30% and stage 1 diastolic dysfunction. * On Lasix. on lisinopril and metoprolol as well as spironolactoone * Cardiology and critical care on board. * Had repeat cardiac cath on 11/26/2023 for staged PCI and insertion of drug- eluting stent to the RCA. * #Acute hypoxic respiratory failure due to acute cardiopulmonary arrest from STEMI and heart failure * was intubated on admission, and now extubated. * Breathing treatment and bronchodilators. Placed on beta-keisha and BERTHA inhibitor as well as spironolactone. * Already on Lasix for heart failure. #Acute encephalopathy * He has a history of chronic alcohol abuse, drinking at least 8 beers daily and also smokes heavily. * Patient was started on alcohol withdrawal protocol with Ativan. Ativan was however changed to as needed because patient was becoming even more lethargic with a tapered Ativan dose. * This has largely resolved. * * #Nonsustained VT: Most likely due to STEMI. # Now resolved. Echo as above. #Hypertension * BP control has improved. On PO lisinopril, carvedilol and spironolactone. * #Hypokalemia: resolved. Potassium is 3.5. #Probable aspiration pneumonia: * largely resolved. * completed a course of IV zosyn. * Now extubated and on room air. * Breathing treatments bronchodilators. WBC is down to 9.4. #ALBIN: Creatinine is 1.37 today, close to the baseline of 1.3. Will monitor. #Hyponatremia: Sodium is 135 today. Will monitor closely. #History of alcohol use disorder * Patient's says he drinks at least 8 beers daily. He also smokes heavily. * Started on alcohol withdrawal protocol to preclude any withdrawal symptoms. * start on thiamine, folic acid and multivites. * #Nicotine dependence: counseled to quit. Nicotine patch 21mg daily. DVT prophylaxis: lovenox Disposition: awaiting placement. Case management on board. Charges/Coding Visit Charges Inpatient E&M: 96620 Subs Hosp L2
[2023-11-28 15:00] VITALS: BP 116/63; PULSE 62; RESP 16; TEMP 36.8; O2SAT 95
[2023-11-28] MEDS: oxyCODONE 5 MG Tablet PO (20:05)
[2023-11-28 21:00] VITALS: BP 113/61; PULSE 66; RESP 18; TEMP 36.9; O2SAT 96
[2023-11-28] MEDS: Atorvastatin Calcium 80 MG Tablet PO (21:06)
[2023-11-28] MEDS: Acetaminophen 325 MG Tablet 650 MG PO (21:06)
[2023-11-29 03:12] VITALS: BP 105/58; PULSE 60; RESP 18; TEMP 36.5; O2SAT 96
[2023-11-29 06:17] LABS: Absolute Lymphocyte Count 1.14 X10^3/uL (0.83-4.51); Absolute Neutrophil Count 8.8 X10^3/uL (2.0-7.7); Basophil# 0.02 X10^3/uL; Basophil% 0.2 % (0-1); Eosinophil# 1.01 X10^3/uL; Eosinophils% 8.2 % (0-5); Hematocrit 37.9 % (40-54); Hemoglobin 12.9 g/dL (13.0-16.5); Lymphocyte # 1.14 X10^3/ul (0.83-4.51); Lymphocyte % 9.2 % (19-41); Mean Corpuscular Hgb 33.2 pg (27.0-32.0); Mean Corpuscular Volume 97.4 fL (80-94); Mean Platelet Vol. 9.9 fl (6.2-12.0); Monocyte# 1.34 X10^3/uL; Monocyte% 10.8 % (0-10); NRBC Flagged by Analyzer 0 % (0-5); Neutrophil # 8.75 X10^3/uL (2.7-7.7); Neutrophil % 70.6 % (47-70); Platelet Count 376 K/mm3 (150-450); RBC Distribution Width CV 12.1 % (11.6-14.6); RBC Distribution Width SD 43.2 fl (35.1-43.9); Red Blood Count 3.89 M/mm3 (4.6-6.2); White Blood Count 12.4 K/mm3 (4.4-11.0)
[2023-11-29 06:32] LABS: Anion Gap 9 (5-15); BUN 31 mg/dL (7-18); BUN/Creat Ratio 23.7 RATIO (10-20); Calcium,Total 9.1 mg/dL (8.5-10.1); Chloride 102 mmol/L (98-107); Creatinine, Serum 1.31 mg/dL (0.70-1.30); EST Glomerular Filtration Rate 57 mL/min (>60); Est Glom Filt Rate - Afr Amer 70 mL/min (>60); Estimated Creatinine Clearance 57.52 ml/min; Glucose 153 mg/dL (74-106); Potassium 3.6 mmol/L (3.5-5.1); Sodium Level 130 mmol/L (136-145)
[2023-11-29 06:57] VITALS: BMI 23.3
[2023-11-29] MEDS: Folic Acid 1 MG Tablet PO (07:51)
[2023-11-29] MEDS: Finasteride 5 MG Tablet 1.25 MG PO (07:51)
[2023-11-29] MEDS: Enoxaparin 40 MG/0.4 ML Syringe SC (07:53)
[2023-11-29] MEDS: TICAGRELOR 90 MG TABLET PO (07:53)
[2023-11-29] MEDS: guaiFENesin 1,200 MG Tablet 1200 MG PO (07:53)
[2023-11-29] MEDS: Pantoprazole Sodium 20 MG Tablet PO (07:55)
[2023-11-29] MEDS: Aspirin 81 MG TAB.CHEW PO (07:55)
[2023-11-29] MEDS: Carvedilol 12.5 MG Tablet PO (07:55)
[2023-11-29] MEDS: Empagliflozin 10 MG Tablet PO (07:56)
[2023-11-29] MEDS: Lisinopril 40 MG Tablet PO (07:56)
[2023-11-29] MEDS: Thiamine Hydrochloride 100 MG Tablet PO (07:56)
[2023-11-29 08:35] VITALS: BP 134/72; PULSE 69; RESP 16; TEMP 36.8; O2SAT 94
[2023-11-29 09:07] VITALS: PULSE 63
[2023-11-29 09:48] VITALS: O2SAT 97
--- NOTE | 2023-11-29 10:42 | DS.PCM_ITS ---
Providers Date of Admission: 11/21/23 Date of Discharge: 11/29/23 Primary Care Physician: ISMAEL CHE Consultations 11/21/23 11:55 Consult: Cardiology Routine Consulting Provider: Birgit Rand Reason for Consult: cardaic arrest EMERGENT Consult: Yes MD Notified: Yes Date Notified: 11/21/23 Time Notified: 10:22 Method of Notification: Verbal Consult: Manager Intensive Care / Pulmonary Medicine Routine Consulting Provider: Intensivists/Pulmonary Med Reason for Consult: Respiratory failure, vent management EMERGENT Consult: No MD Notified: Yes Date Notified: 11/21/23 Time Notified: 12:16 Method of Notification: Answering Service Reason For Visit: ACUTE HYPOXIC RESPIRATORY FAILURE Diagnosis Discharge Diagnosis (1) Stented coronary artery: Status: Acute Code(s): Z95.5 - Presence of coronary angioplasty implant and graft (2) Acute systolic CHF (congestive heart failure): Status: Acute Code(s): I50.21 - Acute systolic (congestive) heart failure (3) Coronary artery disease: Status: Acute Code(s): I25.10 - Atherosclerotic heart disease of [place] coronary artery without angina pectoris (4) STEMI (ST elevation myocardial infarction): Status: Acute Code(s): I21.3 - ST elevation (STEMI) myocardial infarction of unspecified site (5) Cardiopulmonary arrest with successful resuscitation: Status: Acute Code(s): I46.9 - Cardiac arrest, cause unspecified Plan #Acute cardiopulmonary arrest due to acute STEMI * Patient was admitted in cardiopulmonary arrest and had high-quality ACLS with ROSC. Was emergently intubated. * Initial troponin was negative but subsequently trended upwards and subsequent EKG showed ST elevation VT. Cardiology on board. He had cardiac cath with PCI and angiography to the LAD and left circumflex arteries. * On aspirin and Brilinta as well as high intensity statin. * 2D echo showed severe left ventricular systolic dysfunction, with EF of 25-30% and stage 1 diastolic dysfunction. * On Lasix. on lisinopril and metoprolol as well as spironolactoone * Cardiology and critical care on board. * Had repeat cardiac cath on 11/26/2023 for staged PCI and insertion of drug- eluting stent to the RCA. * #Acute hypoxic respiratory failure due to acute cardiopulmonary arrest from STEMI and heart failure * was intubated on admission, and now extubated. * Breathing treatment and bronchodilators. Placed on beta-niru and SIDNEY inhibitor as well as spironolactone. * Already on Lasix for heart failure. #Acute encephalopathy * He has a history of chronic alcohol abuse, drinking at least 8 beers daily and also smokes heavily. * Patient was started on alcohol withdrawal protocol with Ativan. Ativan was however changed to as needed because patient was becoming even more lethargic with a tapered Ativan dose. * This has largely resolved. * * #Nonsustained VT: Most likely due to STEMI. # Now resolved. Echo as above. #Hypertension * BP control has improved. On PO lisinopril, carvedilol and spironolactone. * #Hypokalemia: resolved. Potassium is 3.5. #Probable aspiration pneumonia: * largely resolved. * completed a course of IV zosyn. * Now extubated and on room air. * Breathing treatments bronchodilators. WBC is down to 9.4. #ALBIN: Creatinine is 1.37 today, close to the baseline of 1.3. Will monitor. #Hyponatremia: Sodium is 135 today. Will monitor closely. #History of alcohol use disorder * Patient's says he drinks at least 8 beers daily. He also smokes heavily. * Started on alcohol withdrawal protocol to preclude any withdrawal symptoms. * start on thiamine, folic acid and multivites. * #Nicotine dependence: counseled to quit. Nicotine patch 21mg daily. DVT prophylaxis: lovenox Disposition: awaiting placement. Case management on board. Medications at Discharge Home Medications finasteride 5 mg tablet See Rx Instructions PO DAILY HTN 11/23/23 omeprazole 20 mg capsule,delayed release 20 mg PO DAILY gerd 11/23/23 aspirin 81 mg chewable tablet 81 mg PO BREAKFAST #30 tabs 11/29/23 atorvastatin 80 mg tablet 80 mg PO QHS #30 tabs 11/29/23 carvedilol 12.5 mg tablet 12.5 mg PO BIDCM #60 tabs 11/29/23 empagliflozin 10 mg tablet (Jardiance) 10 mg PO DAILY #30 tabs 11/29/23 furosemide 20 mg tablet 20 mg PO DAILY PRN edema #30 tabs 11/29/23 lisinopril 40 mg tablet 40 mg PO DAILY #30 tabs 11/29/23 ticagrelor 90 mg tablet (Brilinta) 90 mg PO BID #60 tabs 11/29/23 Hospital Course Operations None Procedures 2-D Echocardiogram and Cardiac catheterization Summary of Care Provided Minutes Spent on Discharge: 57 Hospital Course: Patient is a 68-year-old male with a past medical history of alcohol abuse, hypertension and nicotine dependence was admitted through the ED with 11/21/2023 for out of hospital cardiac arrest. Patient was visiting [place] with his for his college reunion. He had been complaining of exertional chest pain several weeks prior to admission. On the morning of the cardiac arrest, he did complain of some chest discomfort and was subsequently found slumped over. EMS was called and patient was found to be in cardiac arrest. He was successfully resuscitated via the use of high-quality ACLS with return of spontaneous circulation. He was subsequently emergently intubated. CT of the brain done showed no acute intracranial pathology and CTA of the chest done showed no PE but did show right upper lobe pneumonia. He did have some nonsustained VT runs in the ED. EKG showed no evidence of ST elevation VT. Initial troponins were negative but subsequent troponins trended upwards significantly leading to a diagnosis of non-STEMI. He was started on heparin drip and admitted and managed for acute cardiopulmonary arrest due to non-ST elevation VT. He was also started on broad-spectrum antibiotics for probable aspiration pneumonia. Cardiology was consulted. Hospital course was also complicated by ALBIN and hyponatremia as well as acute hypoxic respiratory failure due to aspiration pneumonia and cardiac arrest. He had cardiac cath which showed blockage in the LAD and left circumflex arteries as well as the RCA. He had stents placed in the LAD and left circumflex arteries. He was started on aspirin and Brilinta as well as high intensity statin. 2D echo showed EF of 25 to 30% and stage I diastolic dysfunction. He was also placed on Lasix and spironolactone as well as carvedilol and lisinopril. Patient was subsequently extubated initially to oxygen but later weaned down to room air. He did have a repeat cardiac cath on 11/26/2023 for staged PCI and insertion of drug-eluting stent to the RCA. He completed a course of antibiotics. Patient was initially skilled as needing further rehab due to his weakness and debility. However patient subsequently did much better with physical therapy and so opted to go home. He was discharged on 11/29/2023 on p.o. aspirin and Brilinta as well as high intensity statin. He was also discharged with a prescription for carvedilol and per discussion with Dr. Quarles the plant wire chief, he was given a prescription for p.o. Lasix 20 mg daily as needed for lower extremity edema and counseled that if he took the Lasix more than 3 times a week, he should call his plant wire chief office for further recommendations as needed. Patient seen and examined prior to discharge. He had no complaints and had an uneventful night. Review of systems otherwise negative. Labs and vitals reviewed. Home medication reviewed and reconciled. Physical Exam Const alert, oriented x3 and no apparent distress General Appearance: cooperative, comfortable and well kempt HEENT normocephalic, head/scalp atraumatic, hearing grossly normal bilaterally, moist oral mucous membranes and oropharynx normal Mouth: oral and palatal mucosa normal Eyes PERRL and EOMs intact bilaterally Neck no lymphadenopathy and supple Lymph Lymphatic: no lymphadenopathy noted and no lymphedema noted Resp Resp Narrative: mildly diminished breath sounds bibasally, no wheezes or crackles. on room air. Cardio regular rate, regular rhythm, S1 normal heart sound, S2 normal heart sound and no murmurs GI normal to inspection, nondistended, normoactive bowel sounds, soft to palpation, non-tender and non-distended Extremity normal to inspection, full ROM, normal capillary refill, no clubbing, cyanosis or edema and no calf tenderness General Extremity: no tenderness to palpation of joints or extremities Skin no rashes or lesions noted General Skin Exam: no breakdown and turgor normal Neuro oriented x3, CN's II-XII intact bilaterally, moves all extremities, no focal motor deficits and no sensory deficits noted Sensorium / Orientation: awake and alert Motor Exam: strength 5/5 throughout Psych thought process normal and cooperative Appearance: appropriate Activity / Motor Behavior: restless Weight / BMI Weight Weight: 172 lb 9.951 oz Body Mass Index (BMI) 23.3 ABG / Lab / Microbiology Data 11/29/23 05:43 11/29/23 05:43 Laboratory: Laboratory Results - last 24 hr 11/29/23 05:43: WBC 12.4 H, RBC 3.89 L, Hgb 12.9 L, Hct 37.9 L, MCV 97.4 H, MCH 33.2 H, MCHC 34.0, RDW Std Deviation 43.2, RDW Coeff of Sina 12.1, Plt Count 376, MPV 9.9, Immature Gran % (Auto) 1.000 H, Neut % (Auto) 70.6 H, Lymph % (Auto) 9.2 L, Chaves % (Auto) 10.8 H, Eos % (Auto) 8.2 H, Baso % (Auto) 0.2, Absolute Neuts (auto) 8.8 H, Absolute Lymphs (auto) 1.14, Nucleated RBC % 0, Sodium 130 L , Potassium 3.6, Chloride 102, Carbon Dioxide 19.0 L, Anion Gap 9, BUN 31 H, C reatinine 1.31 H, Estim Creat Clear Calc 57.52, Est GFR (MDRD) Af Amer 70, Est GFR (MDRD) Non-Af 57 L, BUN/Creatinine Ratio 23.7 H, Glucose 153 H, Calcium 9.1 Microbiology: Microbiology 11/21/23 10:30 Blood Culture (Wb) - Anticubital Left Blood Culture - Final No growth in 5 days. 11/21/23 10:10 Blood Culture (Wb) - Anticubital Right Blood Culture - Final No growth in 5 days. 11/21/23 08:50 Sputum, Induced/[place] Gram Stain - Final 11/21/23 08:50 Sputum, Induced/[place] Respiratory Culture - Final Haemophilus influenzae 11/21/23 07:30 Urine Catheter - Jones Urine Culture - Final Culture exhibits no growth. 11/21/23 07:30 Urine Catheter - Jones Legionella Antigen - Final 11/21/23 07:30 Urine Catheter - Jones Streptococcus pneumoniae Antigen (M - Final 11/21/23 10:33 Mucosa - Nasopharyngeal Coronavirus COVID-19 PCR - Final D/C Instructions Discharge Diet: Low fat / Low cholesterol Discharge Activity: Return to Normal Activity Weight Bearing Status: Weight bearing as tolerated Call your doctor if you observe: Fever of 101 or Higher, Shortness of breath, Dizziness, Swelling in the ankles and Chest pain Meaningful Use Info Meaningful Use Meaningful Use Diagnoses (Choose all that apply): AMI and CHF AMI/Post PCI/Angioplasty Aspirin given w/in 24hrs of arrival?: Yes ASA at discharge?: Yes Antiplatelet Therapy at Discharge:: Yes Statins at discharge?: Yes Sidney/ARB at discharge?: Yes Beta Niru at discharge?: Yes Done w/ Acute VT measure.: Yes Documented LVEF (%): 25 CHF SIDNEY/ARB ordered at discharge?: Yes Documented LVEF (%): 25 Ischemic Stroke Statin Dosing Therapy Reference: STATIN DOSE THERAPY REFERENCE: * Patients > 75 years receive moderate or high dose statin therapy. * Patients 75 years or YOUNGER should receive HIGH intensity statin dose unless contraindicated. You will be required to document reason for non-treatment if statin daily dose does not meet guidelines. HIGH DOSE STATIN THERAPY DAILY Atorvastatin > than or = to 40 mg Rosuvastatin > than or = to 20 mg Amlodipine + Atorvastatin > than or = to 2.5/40 mg Ezetimibe + Simvastatin 10/80 mg Simvastatin 80mg Discharge Plan Admission Admit Date/Time: 11/21/23 10:01 Primary Reason for Your Visit: CAD, cardiac arrest Attending Provider: Sybil Can Primary Care Provider: ISMAEL TOMPKINS Consulting Providers: Larry Zazueta; Birgit Rand Instructions Patient Instructions: Sudden Cardiac Arrest, First Aid: Heart Attacks, Heart Attack Dc, Heart Attack Meds Discharge Orders/Prescriptions Prescriptions: New atorvastatin 80 mg Tablet 80 mg PO QHS Qty: 30 2RF carvedilol 12.5 mg Tablet 12.5 mg PO BIDCM Qty: 60 2RF aspirin 81 mg Tablet,Chewable 81 mg PO BREAKFAST Qty: 30 2RF lisinopril 40 mg Tablet 40 mg PO DAILY Qty: 30 2RF Brilinta 90 mg Tablet 90 mg PO BID Qty: 60 2RF Jardiance 10 mg Tablet 10 mg PO DAILY Qty: 30 2RF furosemide 20 mg tablet 20 mg PO DAILY PRN (Reason: edema) Qty: 30 2RF Rx Instructions: use for any shortness of breath or lower extremity swelling. If used more than 3x per week, please call your plant wire chief's office for further recommendations. Continued omeprazole 20 mg capsule,delayed release(DR/EC) 20 mg PO DAILY finasteride 5 mg tablet See Rx Instructions PO DAILY Rx Instructions: 1/4 tablet orally daily; Discontinued lisinopril 10 mg tablet 10 mg PO DAILY atenolol 25 mg tablet 25 mg PO DAILY Referrals / Follow Up: ISMAEL TOMPKINS [Other] - Within 1 Week Birgit Rand MD [Med Staff - Active Staff] - Within 2 Weeks NOT,DEFINED [Non-Staff] - Disposition Disposition (needs filled in before D/C Order can be placed): Home, Self Care Charges/Coding Visit Charges Inpatient E&M: 68954 Disch Hosp >30min
[2023-11-29 11:47] VITALS: BP 119/61; PULSE 67; RESP 16; TEMP 36.4; O2SAT 95
--- NOTE | 2024-01-08 18:42 | CASEMGMT ---
ADVANCE DIRECTIVE VALIDATION Received Power of Glass Vial Filler for Health Care and Living Will via email from the patient's . Directives have been received and delivered to HIM for scanning into the medical record. Catarina is primary POAHC and son Brett is secondary. -CARLA Boyle
== END 2023-11-29 13:21 | disposition home or self-care (01) | DRG 321 ==
LOC: ED 10:29 → ICU 10:33 → PCU 11-24 16:26
PROVIDERS: Admitting Provider Internal Medicine; Emergency Provider Emergency Medicine; Visit Provider Student in an Organized Health Care Education/Training Program
DX: I21.02 ST elevation (STEMI) myocardial infarction involving left anterior descending coronary artery (principal); J96.01 Acute respiratory failure with hypoxia; J69.0 Pneumonitis due to inhalation of food and vomit; R57.0 Cardiogenic shock; I50.23 Acute on chronic systolic (congestive) heart failure; G92.8 Other toxic encephalopathy; N17.9 Acute kidney failure, unspecified; I47.20 Ventricular tachycardia, unspecified; E87.4 Mixed disorder of acid-base balance; E87.1 Hypo-osmolality and hyponatremia; I11.0 Hypertensive heart disease with heart failure; F10.10 Alcohol abuse, uncomplicated; L27.0 Generalized skin eruption due to drugs and medicaments taken internally; I25.10 Atherosclerotic heart disease of native coronary artery without angina pectoris; E87.6 Hypokalemia; F17.210 Nicotine dependence, cigarettes, uncomplicated; T50.2X5A Adverse effect of carbonic-anhydrase inhibitors, benzothiadiazides and other diuretics, initial encounter; Y92.239 Unspecified place in hospital as the place of occurrence of the external cause
CPT/HCPCS: 31500; 31720; 36415; 36569; 36600; 70450; 71045; 71275; 76770; 80048; 80053; 80061; 80202; 81001; 82550; 82803; 82962; 83605; 83735; 84100; 84478; 84484; 85025; 85347; 85610; 85730; 87040; 87070; 87077; 87086; 87205; 87449; 87635; 92928; 92941; 93005; 93306; 93308; 93454; 94002; 94003; 94640; 94660; 94668; 97162; 97166; 97530; 97535; 97802; 97803; 99152; 99153; 99252; 99285; C1874; J7030; J7040; J7050; Q9957; Q9967; A4216; C1725; C1769; C1887; C1894; C8924; C8929; C9600; C9606; G0463; J0696; J1940